=== PATIENT | male | born 1935 | race Caucasian/White ===

== ENCOUNTER 2017-01-23 22:32 | Inpatient (IN) | payer MEDICARE, OTHER ==
[~2017-01-23] VITALS: Ht 180.3 cm; Wt 130.0 kg
[~2017-01-23 22:32] MED LIST: ALLOPURINOL300 MG PO; CHLORTHALIDONE25 MG PO; CIPRODEX OTIC7.5 ML AD; CORTISPORIN EAR10 ML AD; COZAAR50 MG PO; DILTIAZEM ER120 MG PO; HYDROCHLOROTHIA25 MG PO; MAGNESIUM100 MG PO; MAGNESIUM250 MG PO; MECLIZINE HCL25 MG PO; METOPROLOL TART25 MG PO; MULTIVITAMINS1 EAC7 PO; VITAMIN D31000 UNI1 PO; ZINC CHELATED50 MG PO; ZINC LOZENGE25 MG PO
--- NOTE | 2017-01-24 01:58 | NUR ---
PT ARRIVES TO CCU ROOM 127, TRANSFERRED TO BED WITH PURPLE MAT AND THREE PERSON ASSIST. PT IS WEAK AND LETHARGIC BUT ALERT AND ORIENTED. ADMITTED WITH SEVERE SEPSIS. CURRENTLY ON 2L/O2, QUIÑONEZ WITH TEMP PROBE IN PLACE AND HR IN THE 80'S. 50 ML URINE EMPTIED FROM QUIÑONEZ BAG, WILL BEGIN HOURLY URINE MONITORING NOW. PT IS HAVING FREQUENT NONPRODUCTIVE COUGHING. ADMISSION COMPLETED, THIRD BOLUS INFUSING AT THIS TIME AND AZITHROMAX INFUSION COMPLETED.
--- NOTE | 2017-01-24 02:43 | NUR ---
LOW BP'S NOTED, VERIFIED WITH MANUAL BP ON LEFT ARM. HR REMAINS STEADY IN THE 80'S. WILL CALL DR OLIVA.
--- NOTE | 2017-01-24 03:12 | NUR ---
DR OLIVA CALLED IN TO UNIT, GIVEN UPDATE, NO ORDERS AT THIS TIME.
--- NOTE | 2017-01-24 03:12 | NUR ---
BP'S HAVE COME UP AND URINE OUTPUT 100ML FOR THE LAST HOUR. FOURTH BOLUS STARTING TO INFUSE. HR 70'S.
--- NOTE | 2017-01-24 06:54 | NUR ---
CALLED DR OLIVA TO UPDATE REGARDING PT'S INCREASE IN PVC'S/BIGEMINY. ORDER GIVEN TO GIVE MAGNESIUM RIDER AND PO KCL. WILL CONTINUE TO MONITOR.
--- NOTE | 2017-01-24 08:36 | NUR ---
PT VERY CONCERED ABOUT WANTING TO KNOW IF PEOPLE THAT ARE DYING SEE THINGS OR HAVE VISIONS? EXPLAINED THAT ALL PEOPLE ARE DIFFERENT. PT ASSUMED THAT I AM RELIGOUS DUE TO WEARING CROSS EARING TODAY. EXPLAINED THAT I WOULD HAVE SPERICAL CARE STAFF COME AND TALK WITH HIM.
--- NOTE | 2017-01-24 09:07 | NUR ---
SPUTUM SAMPLE SENT TO LAB AT THIS TIME.
--- NOTE | 2017-01-24 09:09 | NUR ---
PT REFUSING TO EAT BKF DUE TO HE DOES NOT WANT TO HAVE TO GET OUT OF BED TO USE THE BATHROOM. " I AM JUST TO WEAK" "I WAS TOLD BY ONE OF THE NURSES THAT IF I DID NOT COME IN WHEN I DID I WOULD HAVE ". EXPLAINED THAT HIS ASSESSMENT AND VITAL SIGNS SAY DIFFERENT.
--- NOTE | 2017-01-24 10:15 | NUR ---
PT CONTIOUES TO TALK ABOUT AND TALKING ABOUT THE ROSERY,SAYING PRAYERS, BUT REFUSES A ROSERY WHEN ASKED IF HE WANTS ONE. QUIÑONEZ CATHETER DRAINING MERLYN IN COLOR URINE, AND MEETS THE TOBY REQUIRMENT.
--- NOTE | 2017-01-24 10:41 | NUR ---
PT UP TO THE WHEELCHAIR TO BE TRANSPORTED TO FOR A TWO VIEW. NATURAL GAS TREATING UNIT OPERATOR WENT WITH PT AT THIS TIME.
--- NOTE | 2017-01-24 10:50 | NUR ---
PT RETURNED FROM XRAY VIA WHEEL CHAIR, CONTIOUES TO REFUSE TO EAT WHEN OFFERED FOOD. "I DON'T WANT TO HAVE A BM" "I AM TOO WEEK TO WALK INTO THE BATHROOM" EXPLAINED THAT WE HAVE A COMMODE TO BRING TO THE BEDSIDE, BUT PT STILL DOES NOT WANT SOLID FOODS. WE COMPERMISED ON A CLEAR LIQUID TRAY WHICH WAS ORDERED.
--- NOTE | 2017-01-24 11:39 | NUR ---
PT C/O PAIN AT THIS TIME MEDICATED WITH 1MG DILAUDID IVP AT THIS TIME. THEN PT TRANSFERED VIA BED TO ROOM 119. UPDATED RN FROM M/S ALSO AT THIS TIME.
--- NOTE | 2017-01-24 12:12 | NUR ---
PT TEMP HAS INCREASED THEREFORE BLOOD CULTURES ORDERED AT THIS TIME, PER DR RUEDA ORDERS. LAB NOTIFIED ALSO AT THIS TIME.
--- NOTE | 2017-01-24 12:20 | NUR ---
pt temp increased and shannan carrerow per Dr Michael orders. Temp remains elevated at this time 13:22 tylenol 500mg po given at this tie to see if will decrease temp. 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
[2017-01-24] MEDS ORDERED: ALLOPURINOL300 MG PO (14:19)
[2017-01-24] MEDS ORDERED: LOSARTAN POTAS100 MG PO (14:20)
--- NOTE | 2017-01-24 14:23 | NUR ---
PHYSICAL THERAPY INTO SEE PT AND DID SOME WORK WITH HIM. CURRENTLY DR OLIVA INTO SEE PT AT THIS TIME. I & O'S COMPLETED AND PT CONTIOUES TO NOT WANT TO EAT FOOD.
[2017-01-24] MEDS ORDERED: BICALUTAMIDE50 MG PO (14:27)
[2017-01-24] MEDS ORDERED: TRIAMCINOLONE A15 G1 TOP (14:31)
--- NOTE | 2017-01-24 14:36 | NUR ---
MED REC COMPLETE
--- NOTE | 2017-01-24 15:04 | NUR ---
PT UP TO THE CHAIR AT THIS TIME, AFTER THE QUIÑONEZ CATHETER REMOVED. PT MOVES WELL. PT CONTIOUES TO IN AND OUT OF [facility] DR OLIVA IS AWARE.
--- NOTE | 2017-01-24 15:15 | NUR ---
MANAGEMENT LECTURER INTO TALK WITH PT AT THIS TIME.
--- NOTE | 2017-01-24 15:55 | NUR ---
PT REMAINS UP IN THE CHAIR AND CURRENTLY TALKING WITH HIS SISTER, PT TAKING PO WELL (WATER ONLY). PT CONTIOUES TO DENIE NEED TO SOLID FOODS.
--- NOTE | 2017-01-24 16:29 | NUR ---
PT DID ORDER SOME DINNER AT THIS TIME.
--- NOTE | 2017-01-24 17:11 | NUR ---
PT REMAINS UP INTHE CHAIR FOR DINNER, SANDWICH AND JUICE. PT IS ABLE TO SET UP HIS SANDWICH HE FEELS FIT.
--- NOTE | 2017-01-24 17:57 | NUR ---
PT REMAINS UP IN THE CHAIR AT THIS TIME, ATE ALL OF HIS DINNER. ASKED IF HE WOULD LIKE TO GO BACK TO BED "NO"
--- NOTE | 2017-01-24 19:35 | NUR ---
PT UP IN CHAIR, DOZING BUT AWAKENS EASILY, DENIES NEEDS THEN BACK TO SLEEP.
--- NOTE | 2017-01-24 20:20 | NUR ---
PT IN CHAIR, ASSESSMENT DONE. HAVING OCCASIONAL COUGHING. DENIES PAIN, ALERT AND ORIENTED.
--- NOTE | 2017-01-24 20:30 | NUR ---
PT UP TO VOID IN BR, THEN BACK TO BED. VISITORS IN TO SEE PT.
--- NOTE | 2017-01-24 21:45 | NUR ---
PT GIVEN LUNCH BOX AND ICE CREAM FOR A SNACK, ATE MOST OF IT.
--- NOTE | 2017-01-24 23:00 | NUR ---
PT AWAKE IN BED, UNABLE TO SLEEP DUE TO FREQUENT COUGHING.
--- NOTE | 2017-01-24 23:47 | NUR ---
UP TO VOID IN THE BR, STEADY ON FEET, HR REMAINSIN THE 60'S WHEN UP. BACK TO BED, TESSALON PERLES GIVEN FOR COUGHING. ASSESSMENT DONE, UNCHANGED FROM PREVIOUS.
--- NOTE | 2017-01-25 01:50 | NUR ---
PT SLEEPING, COUGHING OCCASIONALLY.
--- NOTE | 2017-01-25 05:09 | NUR ---
PT UP TO BR TO VOID, BACK TO BED.
--- NOTE | 2017-01-25 06:17 | NUR ---
PT UP TO VOID THEN BACK TO BED
--- NOTE | 2017-01-25 08:08 | NUR ---
PT UP TO THE CHAIR AT THIS TIME, BATH COMPLETED AND LINE CHANGED. PT TOOK OFFENCE THAT HE WAS OFFERED AND WAS GIVEN WARM WIPES TO CLEAN UP WITH.
--- NOTE | 2017-01-25 08:16 | NUR ---
PT CONTIOUES TO TALK WITH STAFF ABOUT "WHY DID HIS PENIS SHRINK UP?" THIS STAFF DID NOT SAY A WORD TO PT AT THIS TIME. THEN PT "SAID WELL IT HAPPENED TO MY FATHER SO I GUESS THAT IS WHY IT HAPPEN TO ME".
--- NOTE | 2017-01-25 08:21 | NUR ---
PT AMBULATED TO THE BATHROOM PT REFUSED TO USE WALKER "I DONT NEED THAT" PT WAS ABLE TO AMBULATE WELL WITHOUT THE WALKER AT THIS TIME. THEN PT STATES "I AM NOT SURE IF I NEED TO 1 OR 2 SO I AM GOING TO SIT DOWN."
--- NOTE | 2017-01-25 09:33 | NUR ---
PT REMAIN UP IN THE CHAIR AT THIS TIME AND APPEARS TO BE SLEEPING, CALL LIGHT IN PTS LAP AT THIS TIME.
--- NOTE | 2017-01-25 10:02 | NUR ---
DR OLIVA INTO SEE PT THIS AM, NEW ORDERS AND PT WILL BE TRANSFERED TO THE M/S UNIT AT SOME POINT TODAY.
--- NOTE | 2017-01-25 10:17 | NUR ---
PASTOR YESENIA GALLEGOS SEE PT AT THIS TIME. PT REMAINS UP IN THE CHAIR.
--- NOTE | 2017-01-25 12:06 | NUR ---
PT REMAINS UP IN THE CHAIR, LUNCH HERE AT THIS TIME, PT FEEDING SELF. NO C/O'S AT THIS TIME OTHER THEN HE STATES "I WAS REAL SICK A FEW DAYS AGO" EXPLAINED THAT HE VITAL SIGNS ARE WNL'S AND HE DOES NOT HAVE A FEVER.
--- NOTE | 2017-01-25 13:20 | NUR ---
PT ATE LUNCH WELL, FAMILY INTO VISIT THIS AFTERNOON. AND CURRENTLY PT IS UP WORKING WITH PHYSICAL THERAPY AT THIS TIME. PHYSICAL THERAPIST TOOK PT TO THE M/S UNIT TO WORK IN THE PT ROOM.
--- NOTE | 2017-01-25 13:30 | NUR ---
PT SITTING IN CHAIR, MOTIONED ME INTO HIS RM. FRIENDLY, ALERT AND ORIENTED. 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 HE KNOWS HE NEEDS TO RETIRE, AND HOPES HIS COUSIN WILL TAKE FARM ON. PT SHARED HIS RM JOURNEY WITH ME, AND SEEMS ALSO TO BE STRUGGLING WITH HIS HEALTH. PT READS GUIDEPOSTS, PROVIDED HIM WITH ONE, AND HAD PRAYER WITH PT. HE ALSO REQUESTED I CONTACT HIS CLAMMER AIDAN I DID. WILL CONTINUE TO FOLLOW
--- NOTE | 2017-01-25 16:30 | NUR ---
DISCHARGE: TALKED WITH PT ABOUT WHY IS FAMILY IS SO CONCERNED WITH HIM GOING HOME. ASKED IF HE FELT HE COULD NOT RETURN HOME PT STATES "NO, I CAN GO HOME" ASKED IF HE FELT HE NEED SOME HELP LIKE WITH HOUSE KEEPER AND OR SOMEONE TO COME IN AND PREPARE MEALS. 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 IF YOU WOULD TAKE THE BOOKS AND THE COOKBOOKS OUT I WOULD ONLY HAVE A TV AND COUCH" FARMING: TALKED WITH PT ON HOW HE DOES WITH FARMING? "WELL I ONLY RECEIVED 49 [employer] AND [employer] THIS YEAR." I STATED WELL WHAT HAPPENED? HE SAID THAT "IT WAS A VERY DRY YEAR" ASKE HIM IF HE HAS THOUGHT OF RETIRMENT DUE TO HIS AGE? "WELL YES,BUT MY FAMILY WANT 2/3 TO 1/3 TO FARM MY GROUND." WELL IF THEY CAN FARM AND GET BETTER THAN 49 AND MORE LIKE OVER 100 YOU WOULD MAKE MORE MONEY AND HAVE MORE TIME TO ENJOY WHAT MAKES YOU HAPPY. "I WILL HAVE TO THINK ABOUT THAT"
--- NOTE | 2017-01-25 16:49 | NUR ---
DINNER ORDERED FOR PT AT THIS TIME. PT FREIND INTO SEE PT AT THIS TIME. IT APPEARS THEY ENJOY EACH OTHERS COMPANY.
--- NOTE | 2017-01-25 18:28 | NUR ---
PT REMAINS UP IN THE CHAIR AT THIS TIME, DENIES ANY C/O'S AT THIS TIME. PT WILL BE TRANSFERED TO M/S AFTER REPORT TONIGHT.
--- NOTE | 2017-01-25 18:50 | NUR ---
PT REMAINS UP IN THE CHAIR AT THIS TIME. NO C/O'S AT THIS TIME
--- NOTE | 2017-01-25 19:59 | NUR ---
REPORT GIVEN TO ARLENE KRAUS. PT TRANSFERRED TO MED SURG, AMBULATED OVER WITH CHARGE NURSE.
--- NOTE | 2017-01-25 20:45 | NUR ---
RECIEVED REPORT FROM CCU. PT RESTING IN CHAIR. DENIES NEEDS AT THIS TIME. CALL SADIA IN REACH.
--- NOTE | 2017-01-25 22:18 | NUR ---
PT SITTING UP IN CHAIR. DENIES NEEDS. CALL MCCULLOUGH IN REACH.
--- NOTE | 2017-01-26 00:13 | NUR ---
PT SLEEPING SITTING UP IN CHAIR. CALL MCCULLOUGH IN REACH.
--- NOTE | 2017-01-26 01:46 | NUR ---
PT UP IN CHAIR. DRY COUGH NOTED. PT APPEARS TO BE SLEEPING. CALL MCCULLOUGH IN REACH.
--- NOTE | 2017-01-26 02:00 | NUR ---
PT RESTING IN CHAIR. URINAL EMPTIED. WATER PITCHER FILLED. BENZONATAE OFFERED, PT DECLINED. PT DENIES FURTHER NEEDS. CALL MCCULLOUGH IN REACH.
--- NOTE | 2017-01-26 02:39 | NUR ---
PT SLEEPING. IVF UNFUSING. CALL MCCULLOUGH IN REACH.
--- NOTE | 2017-01-26 03:46 | NUR ---
PT RESTING IN BED WATCHING TV. URINAL EMPTIED. DENIES NEEDS. CALL MCCULLOUGH IN REACH.
--- NOTE | 2017-01-26 05:38 | NUR ---
REPOSITIONED PT ON R SIDE. INCONT OF STOOL. SMALL LIQUID BROWN. PT STILL SLEEPING HOWEVER EASILY AROUSED. IVF INFUSING W/O DIFFICULTY.
--- NOTE | 2017-01-26 05:53 | NUR ---
PT SLEPT OFF AND ON LAST NIGHT. WAS UP MOST OF THE NIGHT IN THE CHAIR. PT HAS DRY COUGH THAT HE STATES PRODUCES CLEAR SPUTUM. PT HAS BEEN INDEPENDENT IN ROOM. STATES HE IS FEELING WORRIED THIS MORNING. REASSURED PT THAT HE HAS MADE GOOD PROGRESS SINCE HE ARRIVED IN THE ED. VS STABLE. 2 SALINE LOCKS IN L ARM, FLUSH WELL. LEVAQUIN FOR 5 MORE DAYS.
--- NOTE | 2017-01-26 07:33 | NUR ---
RECEVIED BEDSIDE REPORT FROM NAYANA JACOBS. PT AWAKE AND ALERT. WILL HAVE LIVER ULTRASOUND TODAY D/T ELEVATED LIVER ENZYMES.
--- NOTE | 2017-01-26 08:08 | NUR ---
SPOKE WITH GRACE, SPEECH PATHOLOGY SUPERVISOR RE: LIVER ULTRASOUND. PT NEEDS TO BE NPO FOR 8 HOURS. ORDER CHANGED TO NPO FOR ULTRASOUND, TECH WILL BE IN ABOUT [phone] FOR ULTRASOUND.
--- NOTE | 2017-01-26 08:13 | NUR ---
PT HAD NOT HAD BREAKFAST YET. ADVISED PT NOT TO EAT BREAKFAST. SIGN PLACED TO BE NPO. ORDER CHANGED. COMPUTER TECHNICAL SPECIALIST CALLED AND HE WILL BE IN THIS MORNING FOR THE ULTRASOUND.
--- NOTE | 2017-01-26 08:42 | NUR ---
PATIENT IS SITTING UP ON SIDE OF BED. WHITEBOARD UPDATED. DID NOT NEED ANYTHING CURRENTLY.
--- NOTE | 2017-01-26 10:19 | NUR ---
PT HAD ULTRASOUND OF LIVER. BREAKFAST IS ORDERED. PT STATES THAT HE FEELS "LIKE HE DID BEFORE ALL THIS HAPPENED." PT IS CONCERNED ABOUT RECOURANCE OF ILLNESS D/T FARMING. PT IS INDEPENDENT IN ROOM.
--- NOTE | 2017-01-26 18:13 | NUR ---
PT TOLERATING ROOM AIR. PT INDEPENDENT IN HIS ROOM AND HALLWAYS. PT REPORTS NO PAIN, NO NAUSEA. PT TOLERATING REG DIET WELL. VOIDING WELL. IV X2 IN LEFT ARM.
--- NOTE | 2017-01-26 19:35 | NUR ---
RECIEVED REPORT FROM DAY SHIFT NURSE. PT RESTING IN BED. AT BEDSIDE. STATES PAIN AT A TOLERABLE LEVEL. 2L/MIN O2 VIA NC-CONT PULSE OX IN PLACE. PT DENIES NEEDS. CALL MCCULLOUGH IN REACH.
--- NOTE | 2017-01-26 21:46 | NUR ---
PT RESTING IN BED. DRY COUGH NOTED. LUNG SOUNDS CLEAR. PT DENIES NEED FOR TESSALON PERLES. STATES HE STILL IS COUGHING UP CLEAR SPUTUM, BUT MOSTLY WHEN HE IS FLAT ON HIS BACK. PT DENIES NEEDS AT THIS TIME. INDEPENDENT IN ROOM.
--- NOTE | 2017-01-26 22:40 | NUR ---
PT SLEEPING. CALL MCCULLOUGH IN REACH.
--- NOTE | 2017-01-27 00:24 | NUR ---
PT RESTING IN BED. DENIES NEEDS AT THIS TIME. CALL MCCULLOUGH IN REACH.
--- NOTE | 2017-01-27 02:15 | NUR ---
PT SLEEPING IN BED. URINAL EMPTIED. CALL MCCULLOUGH IN REACH.
--- NOTE | 2017-01-27 04:32 | NUR ---
PT SLEEPING. CALL MCCULLOUGH IN REACH.
--- NOTE | 2017-01-27 04:54 | NUR ---
PT RESTING AT A DANGLE IN BED. URINAL EMPTIED. I HAVE NOT HEARD PT COUGH FOR QUITE AWHILE. STATES HE IS COUGHING A LITTLE BIT. PT DENIES NEEDS, CALL MCCULLOUGH IN REACH.
--- NOTE | 2017-01-27 05:04 | NUR ---
PT CALLED TO SAY HIS IV WAS LEAKING. LT HAND WAS LEAKING. DC'D HE HAS ANOTHER WORKING IV
--- NOTE | 2017-01-27 05:46 | NUR ---
PT HAD A GOOD NIGHT. SLEPT MOST OF THE NIGHT. INDEPENDENT IN ROOM. COUGHING LESS. STATES HE IS STILL ABLE TO BRING UP CLEAR SPUTUM. 4 MORE DAYS LEVAQUIN. LIKELY D/C HOME TODAY.
--- NOTE | 2017-01-27 06:48 | NUR ---
LAB IN WITH PT-LAB STATES THEY ARE UNABLE TO DRAW OFF PT. LAB STAFF IS FINDING JESSICA TO ATTEMPT.
--- NOTE | 2017-01-27 07:27 | NUR ---
RECIEVED BEDSIDE REPORT FROM NAYANA JACOBS. PT IS AWAKE AND ALERT IN HIS ROOM. LAB IN ROOM DRAWING BLOOD FOR LABS. NO COMPLAINTS AT THIS TIME.
[2017-01-27] MEDS ORDERED: LEVOFLOXACIN500 MG PO (10:14)
--- NOTE | 2017-01-27 10:54 | NUR ---
PT DISCHARGE EDUCATION COMPLETE. PT STATED THAT HIS SISTER WILL TAKE HIM HOME, BUT WON'T BE HERE UNTIL THIS AFTERNOON. PT HAS NO CLOTHES HERE. SHE WILL BRING HIM CLOTHES. SHE IS IN [place], HE WILL ATTEMPT TO CONTACT HER AND SEE IF SHE CAN COME EARLY.
== END 2017-01-27 12:35 | disposition home or self-care (01) | DRG 871 ==
LOC: ED 22:32 → CCU 01-24 01:00 → MS 01-25 20:14
PROVIDERS: ADMIT Internal Medicine
DX: A41.9 Sepsis, unspecified organism (principal); J18.9 Pneumonia, unspecified organism; N17.9 Acute kidney failure, unspecified; R65.20 Severe sepsis without septic shock; I10 Essential (primary) hypertension; J01.90 Acute sinusitis, unspecified; B96.89 Other specified bacterial agents as the cause of diseases classified elsewhere; D69.6 Thrombocytopenia, unspecified; E86.0 Dehydration; Z85.46 Personal history of malignant neoplasm of prostate
CPT/HCPCS: 36415; 71010; 71020; 76705; 80048; 80053; 81001; 83605; 83735; 85025; 85610; 85730; 87040; 87070; 87205; 87449; 87502; 87899; 94668; 97110; 97116; 97161; 97530; J0456; J0696; J1650; J1956; J3475; J7030; J7120

== ENCOUNTER 2017-08-19 16:24 | Observation (INO) | payer MEDICARE, OTHER ==
[~2017-08-19] VITALS: Ht 180.3 cm; Wt 124.3 kg
[~2017-08-19 16:24] MED LIST changes: +BICALUTAMIDE50 MG PO; +LEVOFLOXACIN500 MG PO; +LOSARTAN POTAS100 MG PO; -MULTIVITAMINS1 EAC7 PO; +MULTIVITAMINS1 EAC8 PO; +TRIAMCINOLONE A15 G1 TOP
--- OUTSIDE RECORDS SUMMARY | 2017-08-19 16:58 | XMS | Clinical Summary ---
Demographics + + + | Address | [address] | | | [place] [address] | + + + | Home Phone | | + + + | Preferred Language | Unknown | + + + | Marital Status | Single | + + + | Taoist Affiliation | UNK | + + + | Race | White | + + + | Ethnic Group | Not or | + + + Author + + + | Author | [facility] | + + + | Organization | [facility] | + + + | Address | Unknown | + + + | Phone | Unavailable | + + + Support + + +---------+ + | Name | Relationship | Address | Phone | + + +---------+ + | BETTYE MONTAÑO | ECON | Unknown | | + + +---------+ + Care Team Providers + +------+ + | Care Marzipan Maker Name | Role | Phone | + +------+ + PP | Unavailable | + +------+ + Source Comments KEKE is fully live on both [facility] Ambulatory and [facility] InPatient.[facility] Allergies Not on File Current Medications Not on file Active Problems Not on file Social History + +-------+ +--------+------+ | Tobacco Use | Types | Packs/Day | Years | Date | | | | | Used | | + +-------+ +--------+------+ | Never Assessed | | | | | + +-------+ +--------+------+ + + + | Sex Assigned at | Date Recorded | | | | + + + | Not on file | | + + + Plan of Treatment + + + + + | Health Maintenance | Due Date | Last Done | Comments | + + + + + | INFLUENZA VACCINE | | | | | (FLU SHOT) | 8 | | | + + + + + Results Not on filefrom Last 3 Months"
--- OUTSIDE RECORDS SUMMARY | 2017-08-19 16:59 | XMS | Clinical Summary ---
Demographics + + + | Address | [address] | | | [place] [address] | + + + | Home Phone | | + + + | Preferred Language | Unknown | + + + | Marital Status | | + + + | Restoration Affiliation | Unknown | + + + | Race | Unknown | + + + | Ethnic Group | Unknown | + + + Author + + + | Author | [facility] | | | and [place] | + + + | Organization | [facility] | | | and [place] | + + + | Address | Unknown | + + + | Phone | Unavailable | + + + Support + + +---------+ + | Name | Relationship | Address | Phone | + + +---------+ + | Kosmos,Lisa | ECON | Unknown | | + + +---------+ + Care Team Providers + +------+ + | Care Associate Product Manager Name | Role | Phone | + +------+ + | Dnany Langley | PP | | | MD | | | + +------+ + Allergies + + + + + + | Active Allergy | Reactions | Severity | Noted | Comments | | | | | Date | | + + + + + + | Amlodipine | | | 09/15/19 | | | | | | 17 | | + + + + + + | Doxazosin | | | 09/15/19 | | | | | | 17 | | + + + + + + | Doxycycline | | | 09/15/19 | | | | | | 17 | | + + + + + + | Terazosin | | | 09/15/19 | | | | | | 17 | | + + + + + + Current Medications + + +-------+---------+------+------+-------+ | Prescription | Sig. | Disp. | Refills | Star | End | Statu | | | | | | t | Date | s | | | | | | Date | | | + + +-------+---------+------+------+-------+ | allopurinol | Take 300 mg by mouth | | | | | Activ | | (ZYLOPRIM) 300 mg | Daily. | | | | | e | | tablet | | | | | | | + + +-------+---------+------+------+-------+ | bicalutamide | Take 50 mg by mouth | | | | | Activ | | (CASODEX) 50 mg | Daily. | | | | | e | | tablet | | | | | | | + + +-------+---------+------+------+-------+ | chlorthalidone 25 | Take 25 mg by mouth | | | | | Activ | | mg tablet | Daily. | | | | | e | + + +-------+---------+------+------+-------+ | Cod Liver Oil CAPS | Take 1 capsule by | | | | | Activ | | | mouth Daily. | | | | | e | + + +-------+---------+------+------+-------+ | losartan (COZAAR) | Take 100 mg by mouth | | | | | Activ | | 100 MG tablet | 2 times daily. Take | | | | | e | | | 0.5 tablet twice | | | | | | | | daily | | | | | | + + +-------+---------+------+------+-------+ | Multiple | Take 1 tablet by | | | | | Activ | | Vitamins-Minerals | mouth Daily. | | | | | e | | (MULTIVITAMIN ADULT | | | | | | | | PO) | | | | | | | + + +-------+---------+------+------+-------+ | dilTIAZem | Take 120 mg by mouth | | | | | Activ | | (CARDIZEM SR) 120 mg | Daily. | | | | | e | | 12 hr capsule | | | | | | | + + +-------+---------+------+------+-------+ | magnesium, as | Take 250 mg by mouth | | | | | Activ | | oxide, 250 MG tablet | Daily. 0.5 tablet | | | | | e | | | daily | | | | | | + + +-------+---------+------+------+-------+ | metoprolol | Take 25 mg by mouth | | | | | Activ | | tartrate (LOPRESSOR) | 2 times daily. 0.5 | | | | | e | | 25 mg tablet | tablet twice daily | | | | | | + + +-------+---------+------+------+-------+ | ascorbic acid | Take 500 mg by mouth | | | | | Activ | | (VITAMIN C) 500 mg | Daily. | | | | | e | | tablet | | | | | | | + + +-------+---------+------+------+-------+ | Cholecalciferol | Take 1,000 Units by | | | | | Activ | | (VITAMIN D3) 3000 | mouth Daily. | | | | | e | | units TABS | | | | | | | + + +-------+---------+------+------+-------+ | Zinc 25 MG TABS | Take 1 tablet by | | | | | Activ | | | mouth Daily. | | | | | e | + + +-------+---------+------+------+-------+ Active Problems Not on file Social History [...] | + + + + + | Vaccine: | | | | | Dtap/Tdap/Td (1 - | 5 | | | | Tdap) | | | | + + + + + | Vaccine: Zoster (#1) | | | | | | 6 | | | + + + + + | Vaccine: | | | | | Pneumococcal 65+ | 1 | | | | Low/Medium Risk (1 | | | | | of 2 - PCV13) | | | | + + + + + | Vaccine: Influenza | | | | | (Season Ended) | 8 | | | + + + + + Results Not on filefrom Last 3 Months Insurance + +--------+ +--------+ +---------+ | Payer | Benefi | Subscriber | Type | Phone | Address | | | t Plan | ID | | | | | | / | | | | | | | Group | | | | | + +--------+ +--------+ +---------+ | MEDICARE | MEDICA | xxxxxxxxxx | Medica | +1- | | | | RE | | re | [phone] | | | | PART A | | | | | | | AND B | | | | | + +--------+ +--------+ +---------+ | STATE FARM MEDICAL | STATE | xxxxxxxxxxx | Indemn | [id number] | | | | FARM | x | ity | [phone] | | | | MDCR | | | | | | | SUPPL | | | | | + +--------+ +--------+ +---------+ + +--------+ +--------+ + + | Guarantor Name | Accoun | Relation to | Date | Phone | Billing Address | | | t Type | Patient | of | | | | | | | | | | + +--------+ +--------+ + + | VAMSI ROBBINS | Person | Self [birth year] Home: | [address] | | | al/Fam | | 1936 | [phone] | [address] | | | tracey | | | [phone] | [place] [address] | + +--------+ +--------+ + +"
--- OUTSIDE RECORDS SUMMARY | 2017-08-19 16:59 | XMS | Clinical Summary ---
Demographics + + + | Address | [address] | | | [place] [address] | + + + | Home Phone | | + + + | Preferred Language | Unknown | + + + | Marital Status | | + + + | Gnosticism Affiliation | Unknown | + + + | Race | Unknown | + + + | Ethnic Group | Unknown | + + + Author + + + | Author | [facility] | | | and [place] | + + + | Organization | [facility] | | | and [...] Team Providers + +------+ + | Care Relationship Management Lead Name | Role | Phone | + +------+ + | Danny Langley | PP | | | MD [...] | STATE | xxxxxxxxxxx | Indemn | [phone] | | | | FARM | x [...] | Self [birth year] Home: | [address] | | | al/Fam | | 1936 | [phone] | [address] | | | [address] | | | [phone] | [place] [address] | + +--------+ +--------+ + +"
--- OUTSIDE RECORDS SUMMARY | 2017-08-19 16:59 | XMS | Clinical Summary ---
Demographics + + + | Address | [address] | | | [place] [address] | + + + | Home Phone | | + + + | Preferred Language | Unknown | + + + | Marital Status | Single | + + + | Synagogue Affiliation | UNK | + + + | Race | White | + + + | Ethnic Group | Not or | + + + Author + + + | Author | [facility] | + + + | Organization | [facility] | + + + | Address | Unknown | + + + | Phone | Unavailable | + + + Support + + +---------+ + | Name | Relationship | Address | Phone | + + +---------+ + | BETTYE MONTAÑO | ECON | Unknown | | + + +---------+ + Care Team Providers + +------+ + | Care Director Of Career Services Name | Role | Phone | + +------+ + PP | Unavailable | + +------+ + Source Comments KEKE is fully live on both [facility] Ambulatory and [facility] InPatient.[facility] Allergies Not on File Current Medications [...]
--- OUTSIDE RECORDS SUMMARY | 2017-08-19 16:59 | XMS | Clinical Summary ---
Demographics + + + | Address | [address] | | | [place] [address] | + + + | Home Phone | | + + + | Preferred Language | Unknown | + + + | Marital Status | Single | + + + | Congregation Affiliation | Unknown | + + + | Race | Unknown | + + + | Ethnic Group | Unknown | + + + Author + + + | Author | [facility] | + + + | Organization | [facility] | + + + | Address | Unknown | + + + | Phone | Unavailable | + + + Support + + +---------+ + | Name | Relationship | Address | Phone | + + +---------+ + | Message,Detailed | ECON | Unknown | | + + +---------+ + | Lisa Rush | ECON | Unknown | | + + +---------+ + Care Team Providers + +------+ + | Care Senior Payroll Specialist Name | Role | Phone | + +------+ + | Danny Langley MD | PP | | + +------+ + Allergies + + + + + + | Active Allergy | Reactions | Severity | Noted | Comments | | | | | Date | | + + + + + + | Amlodipine | Other (See Comments) | Medium | 07/08/19 | Leg swell | | | | | 13 | | + + + + + + | Carvedilol | Nausea Only | Low | 07/08/19 | | | | | | 13 | | + + + + + + | Doxazosin | Other (See Comments) | Medium | 07/08/19 | Leg swell | | | | | 13 | | + + + + + + | Doxycycline | Anaphylaxis | High | 07/08/19 | | | | | | 13 | | + + + + + + | Metoprolol | Other (See Comments) | Medium | 07/08/19 | 100 mg leg and | | | | | 13 | ankle pain. | + + + + + + Current Medications + + +--------+---------+------+------+-------+ | Prescription | Sig. | Disp. | Refills | Star | End | Statu | | | | | | t | Date | s | | | | | | Date | | | + + +--------+---------+------+------+-------+ | allopurinol | Take 300 mg by mouth | | | | | Activ | | (ZYLOPRIM) 300 MG | daily. | | | | | e | | tablet | | | | | | | + + +--------+---------+------+------+-------+ | Zinc 25 MG TABS | Take 25 mg by mouth. | | | | | Activ | | | | | | | | e | + + +--------+---------+------+------+-------+ | Multiple Vitamin | Take 1 tablet by | | | | | Activ | | (MULTIVITAMIN) | mouth daily. | | | | | e | | tablet | | | | | | | + + +--------+---------+------+------+-------+ | Ascorbic Acid | Take 500 mg by mouth | | | | | Activ | | (VITAMIN C) 100 MG | 2 (two) times | | | | | e | | tablet | daily. | | | | | | + + +--------+---------+------+------+-------+ | metoprolol | Take 1 tablet by | | | 05/0 | | Activ | | (TOPROL-XL) 25 MG 24 | mouth daily. | | | 9/20 | | e | | hr tablet | | | | 14 | | | + + +--------+---------+------+------+-------+ | diltiazem | Take 60 mg by mouth | | | | | Activ | | (CARDIZEM) 60 MG | daily. | | | | | e | | tablet | | | | | | | + + +--------+---------+------+------+-------+ | Magnesium 250 MG | Take 250 mg by mouth | | | | | Activ | | TABS tablet | daily. | | | | | e | + + +--------+---------+------+------+-------+ | losartan (COZAAR) | Take 1 tablet by | 270 | 3 | 06/2 | | Activ | | 50 MG tablet | mouth 2 (two) times | tablet | | 4/20 | | e | | | daily. | | | 15 | | | + + +--------+---------+------+------+-------+ | COD LIVER OIL PO | Take 1 tablet by | | | | | Activ | | | mouth daily. | | | | | e | + + +--------+---------+------+------+-------+ | chlorthalidone | Take 25 mg by mouth | | | | | Activ | | (HYGROTEN) 25 MG | daily. | | | | | e | | tablet | | | | | | | + + +--------+---------+------+------+-------+ | meclizine | Take 12.5 mg by | | | | | Activ | | (ANTIVERT) 12.5 MG | mouth 2 (two) times | | | | | e | | tablet | daily. | | | | | | + + +--------+---------+------+------+-------+ | cholecalciferol | Take 1,000 Units by | | | | | Activ | | (VITAMIN D-3) 1000 | mouth daily. | | | | | e | | UNITS tablet | | | | | | | + + +--------+---------+------+------+-------+ | vitamin E 400 UNIT | Take 400 Units by | | | | | Activ | | capsule | mouth daily. | | | | | e | + + +--------+---------+------+------+-------+ | bicalutamide | Take 50 mg by mouth. | | | | | Activ | | (CASODEX) 50 MG | | | | | | e | | tablet | | | | | | | + + +--------+---------+------+------+-------+ | potassium | Take 595 mg by mouth | | | | | Activ | | gluconate 595 (99 K) | daily with | | | | | e | | MG tablet | breakfast. | | | | | | + + +--------+---------+------+------+-------+ Active Problems + + + | Problem | Noted Date | + + + | Secondary hyperparathyroidism (HCC) | 09/08/2012 | + + + | CKD (chronic kidney disease) stage 3, GFR 30-59 ml/min | 07/07/2012 | + + + | Essential hypertension, benign | 07/07/2012 | + + + | Nephrolithiasis | 07/07/2012 | + + + | Obesity | 07/07/2012 | + + + | Gout | 07/07/2012 | + + + | Vitamin D deficiency | 07/07/2012 | + + + Family History + + +------+ + | Medical History | Relation | Name | Comments | + + +------+ + | Diabetes type II | Mother | | | + + +------+ + + + + + + | Relation | Name | Status | Comments | + + + + + | Father | glomular | | | | | tumor | | | + + + + + | Mother | | | | + + + + + Social History + +-------+ +--------+------+ | Tobacco Use | Types | Packs/Day | Years | Date | | | | | Used | | + +-------+ +--------+------+ | Never Smoker | | | | | + +-------+ +--------+------+ + +---+---+---+ | Smokeless Tobacco: | | | | | Never Used | | | | + +---+---+---+ + + +---------+ + | Alcohol Use | Drinks/We | oz/Week | Comments | | | ek | | | + + +---------+ + | No | | | | + + +---------+ + + + + | Sex Assigned at | Date Recorded | | | | + + + | Not on file | | + + + Last Filed Vital Signs + + + + | Vital Sign | Reading | Time Taken | + + + + | Blood Pressure | 157/74 | 01/04/2017 11:01 AM PDT | + + + + | Pulse | 60 | 01/04/2017 11:01 AM PDT | + + + + | Temperature | 35.6 C (96 F) | 01/04/2017 11:01 AM PDT | + + + + | Respiratory Rate | 14 | 09/11/2013 10:25 AM PDT | + + + + | Oxygen Saturation | 95% | 01/04/2017 11:01 AM PDT | + + + + | Inhaled Oxygen | - | - | | Concentration | | | + + + + | Weight | 132.9 kg (293 lb) | 01/04/2017 11:01 AM PDT | + + + + | Height | 180.3 cm (5' 11") | 01/04/2017 11:01 AM PDT | + + + + | Body Mass Index | 40.87 | 01/04/2017 11:01 AM PDT | + + + + Plan of Treatment + [...] filefrom Last 3 Months Insurance + +--------+ +------+-------+ + | Payer | Benefi | Subscriber | Type | Phone | Address | | | t Plan | ID | | | | | | / | | | | | | | Group | | | | | + +--------+ +------+-------+ + | MEDICARE | MEDICA | xxxxxxxxxx | | | [address] | | | RE | | | | [place] [phone] | | | IP-OP | | | | | + +--------+ +------+-------+ + | COMMERCIAL OTHER | STATE | xxxxxxxxxxx | | | | | | FARM | x | | | | | | MEDICA | | | | | | | L | | | | | | | INSURA | | | | | | | NCE | | | | | + +--------+ +------+-------+ + + +--------+ +--------+ + + | Guarantor Name | Accoun | Relation to | Date | Phone | Billing Address | | | t Type | Patient | of | | | | | | | | | | + +--------+ +--------+ + + | VAMSI ROBBINS | Person | Self | [birth year] Home: | [address] | | | al/Fam | | 1936 | [phone] | [place], | | | [address] | | | [phone] | [place] [phone] | + +--------+ +--------+ + +
--- OUTSIDE RECORDS SUMMARY | 2017-08-19 16:59 | XMS | Clinical Summary ---
Demographics + + + | Address | [address] | | | [place] [address] | + + + | Home Phone | | + + + | Preferred Language | Unknown | + + + | Marital Status | Single | + + + | Restorationist Affiliation | Unknown | + + + | Race | Unknown | + + + | Ethnic Group | Unknown | + + + Author + + + | Author | [facility] | + + + | Organization | [facility] | + + + | Address [...] Team Providers + +------+ + | Care Dry Transfer Man Name | Role | Phone | + [...] | xxxxxxxxxx | | | [address] | | | RE | | | | [place] [address] | | | IP-OP | | | [...] | Self | [birth year] | Home: | [address] | | | al/Fam | | 1936 | [phone] | [place], | | | [place] | | | [phone] | [place] [address] | + +--------+ +--------+ + +
--- OUTSIDE RECORDS SUMMARY | 2017-08-19 20:31 | XMS | Clinical Summary ---
Demographics + + + | Address | [address] | | | [place] [address] | + + + | Home Phone | | + + + | Preferred Language | Unknown | + + + | Marital Status | Single | + + + | Alevism Affiliation | UNK | + + + | Race | White | + + + | Ethnic Group | Not or | + + + Author + + + | Author | [facility] | + + + | Organization | [facility] | + + + | Address | Unknown | + + + | Phone | Unavailable | + + + Support + + +---------+ + | Name | Relationship | Address | Phone | + + +---------+ + | BETTYE MONTAÑO | ECON | Unknown | | + + +---------+ + Care Team Providers + +------+ + | Care Biodiesel Process Control Technician Name | Role | Phone | + +------+ + PP | Unavailable | + +------+ + Source Comments KEKE is fully live on both [facility] and [facility] InPatient.[facility] Allergies Not on File Current Medications [...]
--- OUTSIDE RECORDS SUMMARY | 2017-08-19 20:31 | XMS | Clinical Summary ---
Demographics + + + | Address | [address] | | | [place] [address] | + + + | Home Phone | | + + + | Preferred Language | Unknown | + + + | Marital Status | | + + + | Jainism Affiliation | Unknown | + + + | Race | Unknown | + + + | Ethnic Group | Unknown | + + + Author + + + | Author | [facility] | | | and [place] | + + + | Organization | [facility] | | | [...] Team Providers + +------+ + | Care Oil Sales And Service Rep Name | Role | Phone | + [...] | STATE | [phone] | Indemn | [phone] | | | | FARM | x [...] | Self | [birth year] | Home: | [address] | | | al/Fam | | 1936 | [phone] | [address] | | | tracey | | | [phone] | [place] [address] | + +--------+ +--------+ + +"
--- OUTSIDE RECORDS SUMMARY | 2017-08-19 20:31 | XMS | Clinical Summary ---
Demographics + + + | Address | [address] | | | [place] [address] | + + + | Home Phone | | + + + | Preferred Language | Unknown | + + + | Marital Status | Single | + + + | Church Affiliation | Unknown | + + + | Race | Unknown | + + + | Ethnic Group | Unknown | + + + Author + + + | Author | [facility] | + + + | Organization | [facility] | + + + | Address [...] Team Providers + +------+ + | Care Radar Mechanic Name | Role | Phone | + [...] | [phone] | | | [address] | | | RE | | | | [place] [address] | | | IP-OP | | | [...] | Self | [birth year] | Home: | [address] | | | al/Fam | | 1936 | [phone] | [place], | | | [address] | | | [phone] | [place] [address] | + +--------+ +--------+ + +
--- NOTE | 2017-08-19 22:47 | NUR ---
PATIENT RESTING IN BED, DENIES NEEDS. CALL LIGHT WITHIN REACH.
--- NOTE | 2017-08-20 00:17 | NUR ---
PATIENT RESTING IN BED, BREATHING IS EVEN AND UNLABORED. DENIES NEEDS. CALL LIGHT WITHIN REACH.
--- NOTE | 2017-08-20 02:00 | NUR ---
PATIENT RESTING IN BED, BREATHING IS EVEN AND UNLABORED, HEART RATE IS 45 ON TELE, CALL LIGHT WITHIN REACH.
--- NOTE | 2017-08-20 05:10 | NUR ---
UPDATED DR. OLIVA REGARDING PATIENT'S BP OF 196/80. NO NEW ORDERS AT THIS TIME.
--- NOTE | 2017-08-20 06:40 | NUR ---
UPATED DR. OLIVA REGARDING PATIENT'S LOW URINE OUTPUT, ORDERED X1 1L NS BOLUS.
--- NOTE | 2017-08-20 07:47 | NUR ---
BEDSIDE REPORT RECEIVED FROM ANGIE KRAUS. WHITE BOARD UPDATED. PATIENT AWAKE. ANGIE CALLED AND LEFT MESSAGE FOR DR OLIVA ABOUT MOST RECENT BLOOD PRESSURE. PLAN FOR MRI AND ECHO TODAY. BOLUS INFUSING INTO RFA IV NOW. TELE [address] SHOWS HR 74.
--- NOTE | 2017-08-20 08:10 | NUR ---
PATIENT SITTING UP IN BED RN IN ROOM INSERTING IV. NO OTHER NEEDS AT THIS TIME.
--- NOTE | 2017-08-20 09:23 | NUR ---
PT OFF FLOOR TO MRI NOW WITH STUDENT NURSE AND APPLICATION DEFENSE MANAGER.
--- NOTE | 2017-08-20 12:21 | NUR ---
PATIENT RESTING IN BED. NO NEEDS AT THIS TIME.
--- NOTE | 2017-08-20 13:20 | NUR ---
PATIENT SITTING ON EDGE OF HIS BED. PATIENT WASHED HIS HANDS AND FACE. HAIR COMBED. PT IN ROOM TO WORK WITH PATIENT AT THIS TIME. FRESH ICE WATER GIVEN.
--- NOTE | 2017-08-20 14:05 | NUR ---
PT BP ELEVATED. DR OLIVA TOOK MANUAL BP AND RESULT 190/90. HOSPITALIST TO CHANGE MEDS. LUNGS CLEAR. OTHER VSS. I&Os DOCUMENTED. PATIENT SITTING AT EDGE OF BED.
[2017-08-20] MEDS ORDERED: IMIQUIMOD1 EACH TOP (14:31)
[2017-08-20] MEDS ORDERED: POTASSIUM99 M1 PO (16:10)
[2017-08-20] MEDS ORDERED: COD LIVER OIL1 EAC1 PO (16:12)
[2017-08-20] MEDS ORDERED: VITAMIN E400 UNI5 PO (16:12)
[2017-08-20] MEDS ORDERED: TURMERIC500 M2 PO (16:13)
--- NOTE | 2017-08-20 16:38 | NUR ---
PATIENT STANDING UP IN BATHROOM. THIS MANUFACTURING MILLWRIGHT ASSISTED PATIENT BACK TO BED. PATIENT UNDERSTANDS TO CALL FOR HELP WHEN HE NEEDS TO GET UP. CALL LIGHT IN REACH. PATIENT RESTING. NO OTHER NEEDS AT THIS TIME.
--- NOTE | 2017-08-20 17:02 | NUR ---
MED REC COMPLETE
--- NOTE | 2017-08-20 17:14 | EKG ---
[facility] [address] [place] [address] Signed Normal sinus rhythm Normal ECG No previous ECGs available Confirmed by FREDDY OLIVA MD ([id number]) on 08/20/2017 5:13:52 PM Electronically Signed By: FREDDY OLIVA MD 08/20/17 1714 PATIENT NAME: VAMSI ROBBINS LISA Electrocardiogram DATE OF : 35 PHYSICIAN: FREDDY OLIVA MD REPORT #: [id number] REPORT IS CONFIDENTIAL AND NOT TO BE RELEASED WITHOUT AUTHORIZATION
--- NOTE | 2017-08-20 17:24 | NUR ---
UNEVENTFUL DAY. INCREASED BP AT 1400 VS. MANUAL BP 190/90. BED/CHAIR ALARM. PATIENT C/O DIZZINESS WHEN AMBULATING. MEDS CHANGED TODAY. HYDRALAZINE, COZAAR, AND SPIRONOLACTONE FOR NOW. SALINE LOCKED. NEW IV LW. PT/OT. CARDIAC DIET.
--- NOTE | 2017-08-20 17:33 | NUR ---
PATIENT RESTING IN BED. CALL LIGHT IN REACH. VITALS TAKEN. FRESH ICE WATER AT BEDSIDE TABLE. NO OTHER NEEDS AT THIS TIME.
--- NOTE | 2017-08-20 18:57 | NUR ---
IN ROOM FOR REPORT, PT IS IN RESTROOM AT THIS TIME AND WILL PULL CALL STRING WHEN DONE.
--- NOTE | 2017-08-20 20:55 | NUR ---
IN ROOM TO ASSESS PT AND GIVE EVENING MEDICATIONS. PT DENIES PAIN AND ANY NEEDS AT THIS TIME. BP WAS TAKEN MANUALLY, IV'S FLUSH WELL. CALL LIGHT IS WITHIN REACH.
--- NOTE | 2017-08-20 23:45 | NUR ---
PT IS RESTING WITH EYES CLOSED, RESPIRATIONS ARE EVEN AND NONLABORED. CALL LIGHT IS WITHIN REACH.
--- NOTE | 2017-08-21 01:53 | NUR ---
HELPED PT TO RESTROOM, PT IS BACK IN BED WITH CALL LIGHT IN REACH. FRESH WATER IS AT BEDSIDE.
--- NOTE | 2017-08-21 04:03 | NUR ---
PT IS RESTING WITH EYES CLOSED, RESPIRATIONS ARE EVEN AND NONLABORED. CALL LIGHT IS WITHIN REACH.
--- NOTE | 2017-08-21 07:22 | NUR ---
BEDSIDE REPORT RECEIVED FROM MURIEL KRAUS. WHITE BOARD UPDATED. PATIENT AWAKE LYING IN BED. BP STILL ELEVATED. STUDENT NURSE, HANNY, TO ADMINISTER MEDICATIONS WITH THIS RN. SALINE LOCKED IN BOTH IVs.
--- NOTE | 2017-08-21 08:24 | NUR ---
PT SITTING AT EDGE OF BED. ADMINISTERED MEDICATIONS WITH STUDENT NURSE. BP 184/94 WITH MANUAL CUFF/SPHYGMOMANOMETER. PATIENT TALKATIVE WITH STAFF. WILL SHOWER WHEN AID AVAILABLE TO HELP.
--- NOTE | 2017-08-21 09:37 | NUR ---
PATIENT UP TO SHOWER WITH ONE PERSON ASSIST. STUDENT NURSE IN BATHROOM TO ASSIST. SHAVE DONE BY THIS LOG BRANDER. PATIENT UP TO SINK AND BRUSHED TEETH. PATIENT BACK TO CHAIR WITH CHAIR ALARM ON. CALL BUTTON IN REACH. WARM BLANKET GIVEN. CALL BUTTON IN REACH. NO OTHER NEEDS AT THIS TIME.
--- NOTE | 2017-08-21 11:35 | NUR ---
PT SITTING IN RECLINER EATING LUNCH. VISITOR AT BEDSIDE.
--- NOTE | 2017-08-21 13:20 | NUR ---
PT SITTING IN CHAIR, VISITING WITH HIS SISTER RUBEN. HE EXPRESSED HIS DISCOUR- AGEMENT WITH NOT IMPROVING LIKE HE FELT HE SHOULD. LET HIM VENT, AND BEGAN TO DEBRIEF. I ASKED IF HIS SOIL ANALYST KNEW HE WAS HERE, AND HE SAID HE WOULDN'T HAVE THE TIME OR REALLY CARE. HE GAVE ME PERMISSION TO CONTACT [facility]. SOIL ANALYST IS OUT OF TOWN, BUT STAFF WILL MAKE SURE SOMEONE COMES BY. HAD PRAYER WITH PT, WILL FOLLOW NEEDED
[2017-08-21] MEDS ORDERED: HYDRALAZINE HCL25 MG PO (13:26)
[2017-08-21] MEDS ORDERED: COZAAR50 MG PO (13:26)
[2017-08-21] MEDS ORDERED: SPIRONOLACTONE25 MG PO (13:27)
[2017-08-21] MEDS ORDERED: FLONASE ALLERG9.9 ML NAS (13:36)
--- NOTE | 2017-08-21 14:20 | NUR ---
THIS ORACLE FUSION DEVELOPER ASSISTED PATIENT TO THE RESTROOM. 1 PERSON SBA. PATIENT IS NOW RESTING IN CHAIR. PATIENT STATES HE IS WAITING FOR HIS SISTER FOR WHEN HE DISCHARGED. THIS ORACLE FUSION DEVELOPER DC'D PATIENTS IV ON LEFT AND RIGHT RADIAL. CALL LIGHT WITHIN REACH. NO OTHER NEEDS AT THIS TIME.
== END 2017-08-21 15:05 | disposition home or self-care (01) ==
LOC: ED 16:24 → MS 16:26
PROVIDERS: ADMIT Internal Medicine
DX: I16.0 Hypertensive urgency (principal); J32.9 Chronic sinusitis, unspecified; R27.0 Ataxia, unspecified; M10.9 Gout, unspecified; C61 Malignant neoplasm of prostate; R00.1 Bradycardia, unspecified; I10 Essential (primary) hypertension; Z79.899 Other long term (current) drug therapy; Z88.1 Allergy status to other antibiotic agents; Z88.8 Allergy status to other drugs, medicaments and biological substances
CPT/HCPCS: 36415; 70450; 70551; 71045; 80048; 80053; 81001; 82607; 85025; 85610; 85730; 93005; 93010; 93306; 96360; 96361; 96372; 97110; 97161; 97165; 99285; G0378; G8978; G8979; G8980; G8987; G8989; J1650; J7030

== ENCOUNTER 2017-09-18 19:45 | Emergency (ER) | payer MEDICARE, OTHER ==
[~2017-09-18] VITALS: Ht 180.3 cm; Wt 129.3 kg
[~2017-09-18 19:45] MED LIST changes: +COD LIVER OIL1 EAC1 PO; +FLONASE ALLERG9.9 ML NAS; +HYDRALAZINE HCL25 MG PO; +IMIQUIMOD1 EACH TOP; +POTASSIUM99 M1 PO; +SPIRONOLACTONE25 MG PO; +TURMERIC500 M2 PO; +VITAMIN E400 UNI5 PO
[2017-09-18] MEDS ORDERED: LOSARTAN POTASS50 MG PO (20:14)
--- NOTE | 2017-09-19 13:56 | EKG ---
[facility] [address] [place] [address] Signed Normal sinus rhythm Nonspecific T wave abnormality Abnormal ECG When compared with ECG of 19-AUG-2017 17:13, No significant change was found Confirmed by FREDDY OLIVA MD ([id number]) on 09/19/2017 1:56:38 PM Electronically Signed By: FREDDY OLIVA MD 09/19/17 1356 PATIENT NAME: VAMSI ROBBINS Electrocardiogram DATE OF : 35 PHYSICIAN: FREDDY OLIVA MD REPORT #: [id number] REPORT IS CONFIDENTIAL AND NOT TO BE RELEASED WITHOUT AUTHORIZATION
== END 2017-09-18 22:22 | disposition home or self-care (01) ==
LOC: ED 19:45
DX: R42 Dizziness and giddiness (principal); I10 Essential (primary) hypertension; Z88.1 Allergy status to other antibiotic agents; Z88.8 Allergy status to other drugs, medicaments and biological substances; Z79.899 Other long term (current) drug therapy
CPT/HCPCS: 80053; 81001; 84484; 85025; 93005; 93010; 99284

== ENCOUNTER 2018-03-10 08:21 | Emergency (ER) | payer MEDICARE, OTHER ==
[~2018-03-10] VITALS: Ht 180.3 cm; Wt 129.3 kg
--- OUTSIDE RECORDS SUMMARY | ~2018-03-10 | XMS | Clinical Summary ---
Demographics + + + | Address | [address] | | | [place] [address] | + + + | Home Phone | | + + + | Preferred Language | Unknown | + + + | Marital Status | Single | + + + | Hinduism Affiliation | UNK | + + + | Race | White | + + + | Ethnic Group | Not or | + + + Author + + + | Author | [facility] | + + + | Organization | [facility] | + + + | Address | Unknown | + + + | Phone | Unavailable | + + + Support + + +---------+ + | Name | Relationship | Address | Phone | + + +---------+ + | BETTYE MONTAÑO | ECON | Unknown | | + + +---------+ + Care Team Providers + +------+ + | Care Oil Inspector Name | Role | Phone | + +------+ + PP | Unavailable | + +------+ + Source Comments KEKE is fully live on both [facility] Amb[facility] and [facility] InPatient.[facility] Allergies Not on File Current Medications [...] | + + + + + | Pneumococcal (Adult) | | | | | (1 of 2 - PCV13) | 1 | | | + + + + + | Influenza (Flu) | | | | | vaccination (#1) | 8 | | | + + + + + Results Not on filefrom Last 3 Months"
--- OUTSIDE RECORDS SUMMARY | ~2018-03-10 | XMS | Encounter Summary ---
Demographics + + + | Address | [address] | | | [place] [address] | + + + | Home Phone | | + + + | Preferred Language | Unknown | + + + | Marital Status | Single | + + + | Scientologist Affiliation | Unknown | + + + | Race | Unknown | + + + | Ethnic Group | Unknown | + + + Author + + + | Author | [facility] | + + + | Organization | [facility] | + + + | Address [...] Team Providers + +------+ + | Care Air Sampler Name | Role | Phone | + +------+ + | Danny Lanlgey MD | PCP | | + +------+ + Encounter Details +--------+ + + + + | Date | Type | Department | Care Team | Description | +--------+ + + + + | 12/18/ | Orders Only | [facility] | [place], | CKD (chronic kidney | | 2018 | | [address] | JOHN Davis | disease) stage 3, | | | | [address] | | GFR 30-59 ml/min | | | | [place] [address] | | | | | | [phone] | | | +--------+ + + + + Social [...] | PROTEIN / CREATININE | Routin | 12/17/2017 | CKD (chronic | Results for this | | RATIO, URINE | e | 12:00 AM | kidney disease) | procedure are in the | | | | PDT | stage 3, GFR 30-59 | results section. | | | | | ml/min | | + +--------+ + + + | CBC W/MANUAL DIFF | Routin | 12/17/2017 | CKD (chronic | Results for this | | | e | 12:00 AM | kidney disease) | procedure are in the | | | | PDT | stage 3, GFR 30-59 | results section. | | | | | ml/min | | + +--------+ + + + | URIC ACID | Routin | 12/17/2017 | CKD (chronic | Results for this | | | e | 12:00 AM | kidney disease) | procedure are in the | | | | PDT | stage 3, GFR 30-59 | results section. | | | | | ml/min | | + +--------+ + + + | PTH INTACT NO | Routin | 12/17/2017 | CKD (chronic | Results for this | | CALCIUM | e | 12:00 AM | kidney disease) | procedure are in the | | | | PDT | stage 3, GFR 30-59 | results section. | | | | | ml/min | | + +--------+ + + + | MAGNESIUM | Routin | 12/17/2017 | CKD (chronic | Results for this | | | e | 12:00 AM | kidney disease) | procedure are in the | | | | PDT | stage 3, GFR 30-59 | results section. | | | | | ml/min | | + +--------+ + + + | RENAL FUNCTION PANEL | Routin | 12/17/2017 | CKD (chronic | Results for this | | | e | 12:00 AM | kidney disease) | procedure are in the | | | | PDT | stage 3, GFR 30-59 | results section. | | | | | ml/min | | + +--------+ + + + in this encounter Results Protein / creatinine ratio, urine (12/17/2017) + + + + + | Component | Value | Ref Range | Performed At | + + + + + | UR | 206.3 (A) | 0 - 150 | [facility] | | PROTEIN/CREATININE | | | LABORATORY | + + + + + + + | Specimen | + + | Urine | + + + + + | Narrative | Performed At | + + + | PROTEIN, URINE - 13 - 0.0 - 50.0 CREATININE, URINE - 63 | [facility] | | | LABORATORY | + + + + + + + + | Performing | Address | City/State/Zipcode | Phone Number | | Organization | | | | + + + + + | [facility] | [address] | [place] [address] | | | LABORATORY | 13 | | | + + + + + Uric acid (12/17/2017) + +-------+ + + | Component | Value | Ref Range | Performed At | + +-------+ + + | URIC ACID | 5.0 | 4.4 - 7.6 | [facility] | | | | | LABORATORY | + +-------+ + + + + | Specimen | + + | Blood | + + + + + + + | Performing | Address | City/State/Zipcode | Phone Number | | Organization | | | | + + + + + | [facility] | [address] | [place] [address] | | | LABORATORY | 13 | | | + + + + + PTH intact no calcium (12/17/2017) + + + + + | Component | Value | Ref Range | Performed At | + + + + + | PTH INTACT NO | 72.59 (A) | 15 - 65 pg/mL | [facility] | | CALCIUM | | | LABORATORY | + + + + + + + | Specimen | + + | Blood | + + + + + + + | Performing | Address | City/State/Zipcode | Phone Number | | Organization | | | | + + + + + | [facility] | [address] | [place] [address] | | | LABORATORY | 13 | | | + + + + + CBC w/manual diff (12/17/2017) + + + + + | Component | Value | Ref Range | Performed At | + + + + + | WBC | 5.2 | 4.5 - 11.0 10^3/mL | [facility] | | | | | LABORATORY | + + + + + | RBC | 3.40 (A) | 4.3 - 5.7 10^6/ L | [facility] | | | | | LABORATORY | + + + + + | HGB | 11.4 (A) | 13.5 - 18.0 g/dL | [facility] | | | | | LABORATORY | + + + + + | HCT | 31.9 (A) | 41 - 50 % | [facility] | | | | | LABORATORY | + + + + + | MCV | 93.7 | 81 - 99 fL | [facility] | | | | | LABORATORY | + + + + + | MCH | 34 (A) | 27 - 33 pg | [facility] | | | | | LABORATORY | + + + + + | MCHC | 36 | 30 - 36 g/dL | [facility] | | | | | LABORATORY | + + + + + | RDW SD | 13.5 | 10.5 - 15.0 % | [facility] | | | | | LABORATORY | + + + + + | PLT | 127 (A) | 140 - 440 K/ L | [facility] | | | | | LABORATORY | + + + + + | MPV | | fL | [facility] | | | | | LABORATORY | + + + + + | NEUTROPHILS | 58.2 | 39 - 80 % | [facility] | | | | | LABORATORY | + + + + + | LYMPHOCYTES | 33.8 | 24 - 44 % | [facility] | | | | | LABORATORY | + + + + + | MONOCYTES | 4.9 | 0 - 12 % | [facility] | | | | | LABORATORY | + + + + + | EOSINOPHILS | 2.1 | 0 - 6 % | [facility] | | | | | LABORATORY | + + + + + | BASOPHILS | 1.0 | 0 - 2 % | [facility] | | | | | LABORATORY | + + + + + | Neutrophils Absolute | | / L | [facility] | | | | | LABORATORY | + + + + + | Lymphocytes Absolute | | / L | [facility] | | | | | LABORATORY | + + + + + | Monocytes Absolute | | / L | [facility] | | | | | LABORATORY | + + + + + | Eosinophils Absolute | | / L | [facility] | | | | | LABORATORY | + + + + + | Basophils Absolute | | / L | [facility] | | | | | LABORATORY | + + + + + + + | Specimen | + + | Blood | + + + + + + + | Performing | Address | City/State/Zipcode | Phone Number | | Organization | | | | + + + + + | [facility] | [address] | [place] [address] | | | LABORATORY | 13 | | | + + + + + Magnesium (12/17/2017) + +-------+ + + | Component | Value | Ref Range | Performed At | + +-------+ + + | MAGNESIUM | 2.0 | 1.7 - 2.5 mg/dL | [facility] | | | | | LABORATORY | + +-------+ + + + + | Specimen | + + | Blood | + + + + + + + | Performing | Address | City/State/Zipcode | Phone Number | | Organization | | | | + + + + + | [facility] | [address] | [place] [address] | | | LABORATORY | 13 | | | + + + + + Renal function panel (12/17/2017) + + + + + | Component | Value | Ref Range | Performed At | + + + + + | GLUCOSE | 118 (A) | 70 - 100 mg/dL | [facility] | | | | | LABORATORY | + + + + + | BUN | 29 (A) | 6 - 23 mg/dL | [facility] | | | | | LABORATORY | + + + + + | CREATININE | 1.14 (A) | 0.70 - 1.11 mg/dL | [facility] | | | | | LABORATORY | + + + + + | PHOSPHORUS | | mg/dL | [facility] | | | | | LABORATORY | + + + + + | Albumin | 4.3 | 3.5 - 5.0 | [facility] | | | | | LABORATORY | + + + + + | SODIUM | 139 | 132 - 143 mmol/L | [facility] | | | | | LABORATORY | + + + + + | POTASSIUM | 4.2 | 3.6 - 5.1 mmol/L | [facility] | | | | | LABORATORY | + + + + + | CHLORIDE | 103 | 95 - 112 mmol/L | [facility] | | | | | LABORATORY | + + + + + | CO2 | 22 | 19 - 31 mmol/L | [facility] | | | | | LABORATORY | + + + + + | ANION GAP AGAP | 18.2 | 7 - 21 mmol/L | [facility] | | | | | LABORATORY | + + + + + | GFR MDRD Non Af Amer | | | [facility] | | | | | LABORATORY | + + + + + | Phosphorus,Inorganic | 2.8 | 2.5 - 5.0 | [facility] | | | | | LABORATORY | + + + + + | BUN/CREAT | 25.4 | 6.0 - 28.6 | [facility] | | | | | LABORATORY | + + + + + | CALCIUM | 9.7 | 8.5 - 10.3 mg/dL | [facility] | | | | | LABORATORY | + + + + + | EGFR | 61 | mg/dL | [facility] | | | | | LABORATORY | + + + + + + + | Specimen | + + | Blood | + + + + + + + | Performing | Address | City/State/Zipcode | Phone Number | | Organization | | | | + + + + + | [facility] | [address] | [place] [address] | | | LABORATORY | 13 | | | + + + + + in this encounter Visit Diagnoses + + | Diagnosis | + + | CKD (chronic kidney disease) stage 3, GFR 30-59 ml/min | + +"
--- OUTSIDE RECORDS SUMMARY | ~2018-03-10 | XMS | Clinical Summary ---
Demographics + + + | Address | [address] | | | [place] [address] | + + + | Home Phone | | + + + | Preferred Language | Unknown | + + + | Marital Status | Single | + + + | Sikhism Affiliation | UNK | + + + | Race | White | + + + | Ethnic Group | Not or | + + + Author + + + | Author | [facility] | + + + | Organization | [facility] | + + + | Address | Unknown | + + + | Phone | Unavailable | + + + Support + + +---------+ + | Name | Relationship | Address | Phone | + + +---------+ + | BETTYE MONTAÑO | ECON | Unknown | | + + +---------+ + Care Team Providers + +------+ + | Care Behavioral Instructor Name | Role | Phone | + +------+ + PP | Unavailable | + +------+ + Source Comments KEKE is fully live on both [facility] Ambulatory and [facility] InPatient.[facility] Allergies Not on File Current Medications Not [...]
--- OUTSIDE RECORDS SUMMARY | ~2018-03-10 | XMS | Encounter Summary ---
Demographics + + + | Address | [address] | | | [place] [address] | + + + | Home Phone | | + + + | Preferred Language | Unknown | + + + | Marital Status | Single | + + + | Advent Affiliation | Unknown | + + + | Race | Unknown | + + + | Ethnic Group | Unknown | + + + Author + + + | Author | [facility] | + + + | Organization | [facility] | + + + | Address [...] Team Providers + +------+ + | Care City Council Member Name | Role | Phone | + +------+ + | Danny Langley MD | PCP | | + +------+ + Reason for Visit + + + | Reason | Comments | + + + | Labs Pravin | Hakeem - 12/17/17 - sara | + + + Encounter Details +--------+ + + + + | Date | Type | Department | Care Team | Description | +--------+ + + + + | 12/18/ | Documentati | [facility] | [place], | Labs Only ([facility] | | 2018 | on Only | [address] | JOHN Davis | - 12/17/17 - | | | | [address] | | heidi | | | | [place] [address] | | | | | | [phone] | | | +--------+ + + + [...] Treatment Not on fileas of this encounter Visit Diagnoses Not on filein this encounter"
--- OUTSIDE RECORDS SUMMARY | ~2018-03-10 | XMS | Clinical Summary ---
Demographics + + + | Address | [address] | | | [place] [address] | + + + | Home Phone | | + + + | Preferred Language | Unknown | + + + | Marital Status | Single | + + + | Voodoo Affiliation | Unknown | + + + | Race | Unknown | + + + | Ethnic Group | Unknown | + + + Author + + + | Author | [employer] | + + + | Organization | [facility] | + + + | Address [...] Team Providers + +------+ + | Care Wide Piece Goods Inspector Name | Role | Phone | [...] deficiency | 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 | + + + Encounters +--------+ + + + + | Date | Type | Specialty | Care Team | Description | +--------+ + + + + | 12/23/ | Office | | Jefry [place], | CKD (chronic kidney | | 2018 | Visit | | ARTIST MODEL | disease) stage 3, | | | | | | GFR 30-59 ml/min | | | | | | (Primary Dx); | | | | | | Proteinuria, | | | | | | unspecified type; | | | | | | Essential | | | | | | hypertension, benign | +--------+ + + + + | 12/18/ | Documentati | | [place], | Labs Only ([facility] | | 2018 | on Only | | JOHN Davis | - 12/17/17 - | | | | | | sara) | +--------+ + + + + | 12/18/ | Orders Only | | [place], | CKD (chronic kidney | | 2017 | | | JOHN Davis | disease) stage 3, | | | | | | GFR 30-59 ml/min | +--------+ + + + + | 12/10/ | Telephone | | Montse Neumann MA | Labs Only | | 2017 | | | | | +--------+ + + + + from [...] + + + | Blood Pressure | 152/60 | 12/23/2017 1:20 PM PDT | + + + + | Pulse | 81 | 12/23/2017 1:20 PM PDT | + + + + | Temperature | 35.6 C (96 F) | 01/04/2017 11:01 AM PDT | + + + + | Respiratory Rate | 14 | 09/11/2013 10:25 AM PDT | + + + + | Oxygen Saturation | 97% | 12/23/2017 1:20 PM PDT | + + + + | Inhaled Oxygen | - | - | | Concentration | | | + + + + | Weight | 128.5 kg (283 lb 6.4 | 12/23/2017 1:20 PM PDT | | | oz) | | + + + + | Height | 180.3 cm (5' 11") | 12/23/2017 1:20 PM PDT | + + + + | Body Mass Index | 39.53 | 12/23/2017 1:20 PM PDT | + + + + Plan [...] Months Results Protein / creatinine ratio, urine (12/17/2017) [...] | [address] | [place] [address] | | | LABORATORY | 13 | [...] | [address] | [place] [address] | | | LABORATORY | 13 | [...] | [address] | [place] [address] | | | LABORATORY | 13 | [...] | [address] | [place] [address] | | | LABORATORY | 13 | [...] | [address] | [place] [address] | | | LABORATORY | 13 | [...] + + + | [facility] | [address] | [place] [address] | | | LABORATORY | 13 | [...] +------+-------+ + | MEDICARE | MEDICA | [id number] | | | [address] | | | RE | | | | [place] [address] | | | IP-OP | | | | | + +--------+ +------+-------+ + | COMMERCIAL OTHER | STATE | [id number] | | | | | | FARM [...] | Self | [birth year] | Home: | [address] | | | al/Fam | | 1936 | [phone] | [place], | | | [address] | | | [address] | [place] [address] | + +--------+ +--------+ + +
--- OUTSIDE RECORDS SUMMARY | ~2018-03-10 | XMS | Encounter Summary ---
Demographics + + + | Address | [address] | | | [place] [address] | + + + | Home Phone | | + + + | Preferred Language | Unknown | + + + | Marital Status | Single | + + + | Mandaeism Affiliation | Unknown | + + + | Race | Unknown | + + + | Ethnic Group | Unknown | + + + Author + + + | Author | [employer] | + + + | Organization | [facility] | + + + | Address | Unknown | + + + | Phone | Unavailable | + + + Support + + +---------+ + | Name | Relationship | Address | Phone | + + +---------+ + | Message,Detailed | ECON | Unknown | | + + +---------+ + | Lisa uRsh | ECON | Unknown | | + + +---------+ + Care Team Providers + +------+ + | Care Bank Teller Name | Role | Phone | + [...] | | 2018 | on Only | [address] | JOHN Davis | - 12/17/17 - | | | | [address] | | heidi | | | | [place] [address] | | | | | | [phone] | | | +--------+ + + + [...]
--- OUTSIDE RECORDS SUMMARY | ~2018-03-10 | XMS | Encounter Summary ---
Demographics + + + | Address | [address] | | | [place] [address] | + + + | Home Phone | | + + + | Preferred Language | Unknown | + + + | Marital Status | Single | + + + | Yarsani Affiliation | Unknown | + + + | Race | Unknown | + + + | Ethnic Group | Unknown | + + + Author + + + | Author | [facility] | + + + | Organization | [facility] | + + + | Address [...] Team Providers + +------+ + | Care Product Development Assistant Name | Role | Phone | + [...] ml/min | | | | [place] [address] | [place] [address] | (Primary Dx); | | | | [phone] | [phone] | Proteinuria, | | | | | [...] such as Protonix (omeprazole), talk to your [facility] care provider about if you need this medication 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 Kellogg is a [...] Keep follow up appts with Urology in [place]. BP Charting: he will bring me back [...] questions or concerns. Truly yours, Jefry [place] [facility] Nephrology This note prepared with voice recognition [...]
--- OUTSIDE RECORDS SUMMARY | ~2018-03-10 | XMS | Encounter Summary ---
Demographics + + + | Address | [address] | | | [place] [address] | + + + | Home Phone | | + + + | Preferred Language | Unknown | + + + | Marital Status | Single | + + + | Latter Day Affiliation | Unknown | + + + | Race | Unknown | + + + | Ethnic Group | Unknown | + + + Author + + + | Author | [facility] | + + + | Organization | [facility] [employer] [facility] | + + + | Address [...] Team Providers + +------+ + | Care Dial Lathe Operator Name | Role | Phone | + [...] GFR 30-59 ml/min | | | | [place] [address] | | | | | | [phone] | | | +--------+ + + + [...] + + + | [facility] | [address] | [place] [address] | | | LABORATORY | 13 | [...] | [address] | [place] [address] | | | LABORATORY | 13 | [...] | [address] | [place] [address] | | | LABORATORY | 13 | [...] | [address] | [place] [address] | | | LABORATORY | 13 | [...] | [address] | [place] [address] | | | LABORATORY | 13 | [...] | [address] | [place] [address] | | | LABORATORY | 13 | | | + + + + + in this encounter Visit Diagnoses + + | Diagnosis | + + | CKD (chronic kidney disease) stage 3, GFR 30-59 ml/min | + +"
--- OUTSIDE RECORDS SUMMARY | ~2018-03-10 | XMS | Encounter Summary ---
Demographics + + + | Address | [address] | | | [place] [address] | + + + | Home Phone | | + + + | Preferred Language | Unknown | + + + | Marital Status | Single | + + + | Yazidi Affiliation | Unknown | + + + | Race | Unknown | + + + | Ethnic Group | Unknown | + + + Author + + + | Author | [employer] | + + + | Organization | [facility] | + + + | Address [...] Team Providers + +------+ + | Care Swim Instructor Name | Role | Phone | + +------+ + | Danny Langley MD | PCP | | + +------+ + Reason for Visit + + + | Reason | Comments | + + + | Labs Only | | + + + Encounter Details +--------+ + + + + | Date | Type | Department | Care Team | Description | +--------+ + + + + | 12/10/ | Telephone | [facility] | Montse Neumann MA | Labs Only | | 2018 | | [address] | | | | | | [address] | | | | | | [place] [address] | | | | | | [phone] | | | +--------+ + + + [...] Treatment Not on fileas of this encounter Results Protein / creatinine ratio, [...] | [address] | [place] [address] | | | LABORATORY | 13 | [...] | [facility] | [address] | [place] [address] | | | LABORATORY | 13 | [...] | [address] | [place] [address] | | | LABORATORY | 13 | [...] | [address] | [place] [address] | | | LABORATORY | 13 | [...] | [address] | [place] [address] | | | LABORATORY | 13 | [...] | [address] | [place] [address] | | | LABORATORY | 13 | | | + + + + + in this encounter Visit Diagnoses + + | Diagnosis | + + | CKD (chronic kidney disease) stage 3, GFR 30-59 ml/min - Primary | + +"
--- OUTSIDE RECORDS SUMMARY | ~2018-03-10 | XMS | Clinical Summary ---
Demographics + + + | Address | [address] | | | [place] [address] | + + + | Home Phone | | + + + | Preferred Language | Unknown | + + + | Marital Status | | + + + | Judaism Affiliation | Unknown | + + + [...] Team Providers + +------+ + | Care Spray Maker Name | Role | Phone | [...] +--------+ +---------+ | MEDICARE | MEDICA | [id number] | Medica | [phone]- | | | | RE | | re | [phone] | | | | PART A | | | | | | | AND B | | | | | + +--------+ +--------+ +---------+ | STATE FARM MEDICAL | STATE | [id number] | Indemn | [phone] | | | | FARM | 7 [...] | Self | [birth year] | Home: | [address] | | | al/Fam | | 1936 | [phone] | [address] | | | [address] | | | [phone] | [place] [address] | + +--------+ +--------+ + +
--- OUTSIDE RECORDS SUMMARY | ~2018-03-10 | XMS | Clinical Summary ---
Demographics + + + | Address | [address] | | | [place] [address] | + + + | Home Phone | | + + + | Preferred Language | Unknown | + + + | Marital Status | | + + + | Yazdanism Affiliation | Unknown | + + + | Race | Unknown | + + + | Ethnic Group | Unknown | + + + Author + + + | Author | [facility] | | | and [place] | + + + | Organization | [facility] | | | [...] Team Providers + +------+ + | Care Cash Processing Specialist Name | Role | Phone | [...] +--------+ +---------+ | MEDICARE | MEDICA | [id number] | Medica | [phone]- | | | | RE | | re | [phone] | | | | PART A | | | | | | | AND B | | | | | + +--------+ +--------+ +---------+ | STATE FARM MEDICAL | STATE | [id number] | Indemn | [phone] | | | | FARM | 7 [...] | Self | [birth year] | Home: | [address] | | | al/Fam | | 1936 | [phone] | [address] | | | [address] | | | [address] | [place] [address] | + +--------+ +--------+ + +
--- OUTSIDE RECORDS SUMMARY | ~2018-03-10 | XMS | Clinical Summary ---
Demographics + + + | Address | [address] | | | [place] [address] | + + + | Home Phone | | + + + | Preferred Language | Unknown | + + + | Marital Status | Single | + + + | Yarsanism Affiliation | Unknown | + + + | Race | Unknown | + + + | Ethnic Group | Unknown | + + + Author + + + | Author | [facility] | + + + | Organization | [facility] | + + + | Address [...] Team Providers + +------+ + | Care Geoscience Technician Name | Role | Phone | [...] | | 2018 | Visit | | C D AREA SUPERVISOR | disease) stage 3, | | | [...] | [address] | [place] [address] | | | LABORATORY | 13 | [...] | [address] | [place] [address] | | | LABORATORY | 13 | [...] | [address] | [place] [address] | | | LABORATORY | 13 | [...] | [address] | [place] [address] | | | LABORATORY | 13 | [...] | [address] | [place] [address] | | | LABORATORY | 13 | [...] + + + | [facility] | [address] | [place] [address] | | | LABORATORY | 13 | [...] +------+-------+ + | MEDICARE | MEDICA | [id number] | | | [address] | | | RE | | | | [place] [address] | | | IP-OP | | | | | + +--------+ +------+-------+ + | COMMERCIAL OTHER | STATE | [id number] | | | | | | FARM [...] | Self | [birth year] | Home: | [address] | | | al/Fam | | 1936 | [phone] | [place], | | | [address] | | | [address] | [place] [address] | + +--------+ +--------+ + +
--- OUTSIDE RECORDS SUMMARY | ~2018-03-10 | XMS | Encounter Summary ---
Demographics + + + | Address | [address] | | | [place] [address] | + + + | Home Phone | | + + + | Preferred Language | Unknown | + + + | Marital Status | Single | + + + | Baptist Affiliation | Unknown | + + + | Race | Unknown | + + + | Ethnic Group | Unknown | + + + Author + + + | Author | [employer] | + + + | Organization | [facility] | + + + | Address [...] Team Providers + +------+ + | Care Drapery Examiner Name | Role | Phone | + [...] ml/min | | | | [place] [address] | [place] [address] | (Primary Dx); | | | | [phone] | [phone] | Proteinuria, | | | | | [...] such as Protonix (omeprazole), talk to your [facility] care provider about if you need this medication division human 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 Kellogg is a [...] Keep follow up appts with Urology in [place]. BP Charting: he will bring me back [...] questions or concerns. Truly yours, Jefry [place] COLD SAW OPERATOR [facility] Nephrology This note prepared with voice [...]
--- OUTSIDE RECORDS SUMMARY | ~2018-03-10 | XMS | Encounter Summary ---
Demographics + + + | Address | [address] | | | [place] [address] | + + + | Home Phone | | + + + | Preferred Language | Unknown | + + + | Marital Status | Single | + + + | Gnosticist Affiliation | Unknown | + + + | Race | Unknown | + + + | Ethnic Group | Unknown | + + + Author + + + | Author | [facility] | + + + | Organization | [facility] [employer] | + + + | [...] Team Providers + +------+ + | Care Phlebotomy Lab Assistant Name | Role | Phone | [...] [address] | | | | | | [place] [address] | | | | | | [phone] | | | +--------+ + + + [...] | [address] | [place] [address] | | | LABORATORY | 13 | [...] [facility] | [address] | [place] [address] | | | LABORATORY | 13 | [...] | [facility] | [address] | [place] [address] | | | LABORATORY | 13 | [...] | [address] | [place] [address] | | | LABORATORY | 13 | [...] | [address] | [place] [address] | | | LABORATORY | 13 | [...] | [address] | [place] [address] | | | LABORATORY | 13 | | | + + + + + in this encounter Visit Diagnoses + + | Diagnosis | + + | CKD (chronic kidney disease) stage 3, GFR 30-59 ml/min - Primary | + +"
[~2018-03-10 08:21] MED LIST changes: +LOSARTAN POTASS50 MG PO
[2018-03-10] MEDS ORDERED: FLONASE ALLERG9.9 ML NAS (10:36)
[2018-03-10] MEDS ORDERED: ZITHROMAX250 MG PO (10:36)
--- NOTE | 2018-03-10 14:28 | EKG ---
[facility] [address] [facility] [place], [place] [address] Signed Sinus rhythm with 1st degree AV block Nonspecific T wave abnormality Abnormal ECG When compared with ECG of 18-SEP-2017 20:36, ME interval has increased Confirmed by SHAMEKA CARLOS DO ([id number]) on 03/10/2018 2:28:12 PM Electronically Signed By: SHAMEKA CARLOS DO 03/10/18 1428 PATIENT NAME: VAMSI ROBBINS Electrocardiogram DATE OF : 35 PHYSICIAN: SHAMEKA CARLOS DO REPORT #: [id number] REPORT IS CONFIDENTIAL AND NOT TO BE RELEASED WITHOUT AUTHORIZATION
== END 2018-03-10 11:00 | disposition home or self-care (01) ==
LOC: ED 08:21
DX: J32.9 Chronic sinusitis, unspecified (principal); J40 Bronchitis, not specified as acute or chronic; I10 Essential (primary) hypertension; Z88.8 Allergy status to other drugs, medicaments and biological substances; Z79.899 Other long term (current) drug therapy
CPT/HCPCS: 71046; 80053; 81001; 84484; 85025; 93005; 93010; 99284

== ENCOUNTER 2018-03-13 08:16 | Emergency (ER) | payer MEDICARE, OTHER ==
[~2018-03-13] VITALS: Ht 180.3 cm; Wt 129.5 kg
--- OUTSIDE RECORDS SUMMARY | ~2018-03-13 | XMS | Clinical Summary ---
Demographics + + + | Address | [address] | | | [place] [address] | + + + | Home Phone | | + + + | Preferred Language | Unknown | + + + | Marital Status | Single | + + + | Sikh Affiliation | UNK | + + + | Race | White | + + + | Ethnic Group | Not or | + + + Author + + + | Author | [facility] | + + + | Organization | [facility] | + + + | Address | Unknown | + + + | Phone | Unavailable | + + + Support + + +---------+ + | Name | Relationship | Address | Phone | + + +---------+ + | BETTYE MONTAÑO | ECON | Unknown | | + + +---------+ + Care Team Providers + +------+ + | Care Veneer Jointer Name | Role | Phone | + +------+ + PP | Unavailable | + +------+ + Source Comments KEKE is fully live on both [facility] Ambulatory and [facility] InPatient.[facility] Allergies Not on File Current Medications [...]
--- OUTSIDE RECORDS SUMMARY | ~2018-03-13 | XMS | Clinical Summary ---
Demographics + + + | Address | [address] | | | [place] [address] | + + + | Home Phone | | + + + | Preferred Language | Unknown | + + + | Marital Status | Single | + + + | Gnosticism Affiliation | UNK | + + + | Race | White | + + + | Ethnic Group | Not or | + + + Author + + + | Author | [facility] | + + + | Organization | [facility] | + + + | Address | Unknown | + + + | Phone | Unavailable | + + + Support + + +---------+ + | Name | Relationship | Address | Phone | + + +---------+ + | BETTYE MONTAÑO | ECON | Unknown | | + + +---------+ + Care Team Providers + +------+ + | Care Academic Adviser Name | Role | Phone | + +------+ + PP | Unavailable | + +------+ + Source Comments KEKE is fully live on both [facility] Ambulatory and [facility] InPatient.[facility] Allergies Not on File Current [...]
--- OUTSIDE RECORDS SUMMARY | ~2018-03-13 | XMS | Encounter Summary ---
Demographics + + + | Address | [address] | | | [place] [address] | + + + | Home Phone | | + + + | Preferred Language | Unknown | + + + | Marital Status | Single | + + + | Christianity Affiliation | Unknown | + + + | Race | Unknown | + + + | Ethnic Group | Unknown | + + + Author + + + | Author | [facility] | + + + | Organization | [facility] | + + + | Address [...] Team Providers + +------+ + | Care Agricultural Extension Officer Name | Role | Phone | + [...] GFR 30-59 ml/min | | | | [place] [address] | | | | | | [phone] | | | +--------+ + + + [...] | [address] | [place] [address] | | | LABORATORY | 13 | [...] | [address] | [place] [address] | | | LABORATORY | 13 | [...] | [address] | [place] [address] | | | LABORATORY | 13 | [...] | [address] | [place] [address] | | | LABORATORY | 13 | [...] | [address] | [place] [address] | | | LABORATORY | 13 | [...] | [address] | [place] [address] | | | LABORATORY | 13 | | | + + + + + in this encounter Visit Diagnoses + + | Diagnosis | + + | CKD (chronic kidney disease) stage 3, GFR 30-59 ml/min | + +"
--- OUTSIDE RECORDS SUMMARY | ~2018-03-13 | XMS | Clinical Summary ---
Demographics + + + | Address | [address] | | | [place] [address] | + + + | Home Phone | | + + + | Preferred Language | Unknown | + + + | Marital Status | | + + + | Congregational Affiliation | Unknown | + + + | Race | Unknown | + + + | Ethnic Group | Unknown | + + + Author + + + | Author | [facility] | | | and Peterana | + + + | Organization | [facility] | | | [...] Team Providers + +------+ + | Care Professor Of Rhetoric Name | Role | Phone | + [...] + + + + | Doxycycline | Shortness Of Breath | High | 09/15/19 | | | | | | 17 | | + + + + + + | Metoprolol | Other (See Comments) | Medium | 07/08/19 | 100 mg leg and | | | | | 13 | ankle pain. | + + + + + + | Terazosin | Nausea And Vomiting | | 09/15/19 | | | | [...] | e | + + +-------+---------+------+------+-------+ | Multiple | [...] | | (VITAMIN C) 500 mg | as needed. | | | | | e | [...] | Zinc 25 MG TABS | Take 50 mg by mouth | | | | | Activ | | | Daily. | | | | | e | + + +-------+---------+------+------+-------+ | hydrALAZINE | Take 25 mg by mouth | | | | | Activ | | (APRESOLINE) 25 mg | 3 times daily. | | | | | e | | tablet | | | | | | | + + +-------+---------+------+------+-------+ | spironolactone | Take 25 mg by mouth | | | | | Activ | | (ALDACTONE) 25 mg | Daily. | | | | | e | | tablet | | | | | | | + + +-------+---------+------+------+-------+ | fluticasone | 1 spray by Nasal | | | 04/1 | | Activ | | (FLONASE) 50 | route as needed. | | | 820 | | e | | mcg/nasal spray | | | | 18 | | | + + +-------+---------+------+------+-------+ | losartan (COZAAR) | Take 50 mg by mouth | | | 04 | | Activ | | 50 mg tablet | Daily. | | | 12/23 | | e | | | | | | 18 | | | + + +-------+---------+------+------+-------+ Active Problems + + + | Problem | Noted Date | + + + | Pulmonary hypertension (HCC) | | + + + | Prostate cancer (HCC) | | + + + | Actinic keratosis | | + + + | Anemia, normocytic normochromic | | + + + | Chronic kidney disease, stage 3 (HCC) | | + + + | Essential hypertension | | + + + | Fatigue | | + + + | Gout | | + + + | Homocysteinemia (HCC) | | + + + | PVC (premature ventricular contraction) | | + + + | Thrombocytopenia (HCC) | | + + + | Vitamin D deficiency | | + + + | Bicuspid aortic valve | | + + + | Diastolic dysfunction | | + + + Family History + + +------+ + | Medical History | Relation | Name | Comments | + + +------+ + | Diabetes | Father | | | + + +------+ + | Heart attack | Mother | | | + + +------+ + + +------+ + + | Relation | Name | Status | Comments | + +------+ + + | Father | | | | + +------+ + + | Mother | | | | + +------+ + + Social History + +-------+ +--------+------+ [...] + + + | Blood Pressure | 158/82 | 11/13/2017933 PDT | + + + + | Pulse | 64 | 11/13/2017933 PDT | + + + + | Temperature | - | - | + + + + | Respiratory Rate | 16 | 11/13/2017933 PDT | + + + + | Oxygen Saturation | - | - | + + + + | Inhaled Oxygen | - | - | | Concentration | | | + + + + | Weight | 128.6 kg (283 lb 8.2 | 11/13/2017933 PDT | | | oz) | | + + + + | Height | 180.3 cm (5' 11") | 11/13/2017933 PDT | + + + + | Body Mass Index | 39.54 | 11/13/2017933 PDT | + + + + Plan [...] 65+ | 1 | | | | High/Highest Risk (1 | | | | | of 2 - PCV13) | | | | + + + + + | Adult Annual | | | | | Wellness Visit | 7 | | | + + + + + | Vaccine: Influenza | | | | | (#1) | 8 | | | + [...] +--------+ +---------+ | MEDICARE | MEDICA | [id number] | Medica | [phone]- | | | | RE | | re | [phone] | | | | PART A | | | | | | | AND B | | | | | + +--------+ +--------+ +---------+ | STATE [employer] | STATE | [id number] | Indemn | [phone] | | | | FARM | 7 | ity | 1212 | | | [...] | Self [birth year] Home: | [address] | | | al/Fam | | 1936 | [phone] | | | tracey | | | [phone] | [place] [address] | + +--------+ +--------+ + +
--- OUTSIDE RECORDS SUMMARY | ~2018-03-13 | XMS | Encounter Summary ---
Demographics + + + | Address | [address] | | | [place] [address] | + + + | Home Phone | | + + + | Preferred Language | Unknown | + + + | Marital Status | Single | + + + | Restoration Affiliation | Unknown | + + + | Race | Unknown | + + + | Ethnic Group | Unknown | + + + Author + + + | Author | [employer] | + + + | Organization | [facility] | + + + | Address [...] Team Providers + +------+ + | Care Wallpaper Embosser Helper Name | Role | Phone | + +------+ + | Danny Langley MD | PCP | | + +------+ + Encounter Details +--------+---------+ + + + | Date | Type | Department | Care Team | Description | +--------+---------+ + + + | 12/23/ | Office | [facility] | Jefry Birmingham, | CKD (chronic kidney | | 2018 | Visit | [place] [address] | [address] | disease) stage 3, | | | | [address] | [address] | GFR 30-59 ml/min | | | | [place] [address] | [place] [address] | (Primary Dx); | | | | [phone] | [phone] | Proteinuria, | | | | | | unspecified type; | | | | | | Essential | | | | | | hypertension, benign | +--------+---------+ + + + Social History [...] PM PDT | + + + + in this encounter Instructions Patient Instructions - Jefry Birmingham ARNP - 12/23/2017 2:00 PM PDT Medication Changes made at today's visit: None Next LAB WORK should be done in about: 6 Months You do NOT need to fast for this lab work, keep hydrated. Next APPOINTMENT: in about 6 Months Other Instructions: Low Salt Diet Recommended Please have lab work done 1 weeks prior to your appointment. Make sure you are well hydrated prior to going to the lab and are able to give a urine s ample. Call the office with any questions or concerns. If you are taking a proton pump inhibitor, such as Protonix (omeprazole), talk to your [facility] care provider about if you need this medication local intermodal truck driver. Call our office or your PCP if you have blood pressure over 150/90 on more than one occa heriberto, or low blood pressure that is concerning. If you experience diarrhea and /or vomiting for more than 24 hours with no relief please seek medical help immediately. The treatments that are recommended to slow the progression of Chronic Kidney Disease in clude blood sugar control, blood pressure control, healthy body weight (BMI >= 30 kg/m2), av oid sedentary lifestyle, avoid smoking/ tobacco, avoid NSAIDs, early intervention of worseni ng nausea, vomiting, no or low appetite and/or frequent diarrhea and avoid IV contrast. I urge that you measure your BP at least daily, twice daily, record it and bring record to every appointment with every healthcare provider you see. Do not drink alcohol. Avoid caffeinated beverages such as soda pop, coffee, espresso drinks, energy drinks. Please bring all of your medications in the pharmacy bottles to every visit so a medicat ion review can be done. Make all healthcare providers aware of the presence of kidney disease and request to adj ust all medications according to level of kidney function and to avoid nephrotoxic medicatio ns if possible, including but not limited to antibiotics. Call us with any questions about m eds. DO NOT TAKE any anti-inflammatory drugs such Ibuprofen, Diclofenac, Motrin, Advil, Casiano xicam, naprosyn (Aleve), Celebrex, decongestants containing pseudoephedrine (such as some fo jackie of Sudafed or Actifed) or herbal supplements (because of lack of FDA approval) Short term use of acetaminophen (Tylenol) for fever or pain is okay. If in doubt please call our office for verification. Avoid exposure to IV contrast agents (DYE) used in CT scans, MRI's, Fluoroscopy, or in h eart catheterization procedures unless necessary or for a life saving procedure. If you smoke, you must quit. Smoking worsens kidney disease. in this encounter Progress Notes Jefry Birmingham ARNP - 12/23/2017 2:00 PM PDTFormatting of this note may be different f rom the original. Patient Active Problem List Diagnosis CKD (chronic kidney disease) stage 3, GFR 30-59 ml/min Essential hypertension, benign Nephrolithiasis Obesity Gout Vitamin D deficiency Secondary hyperparathyroidism (HCC) Dear Dr Langley: I saw your Mr. Kellogg in the office today. He is here to F/U on a recent drop in his GFR. In 04/2013, he had a drop in his GFR to 28. He does not remember being sick then nor start ing a new med. The patient has history [...] today, chronic ABREU. 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 Diet is poor. He on and off diarrhea. He denies any blurred vision, tinnitus, headache, fever, chills, or cough. No nausea, vom iting, abdominal pain, melena, or hematochezia. No chest pain, palpitation, dizziness, loss of consciousness, orthopnea, paroxysmal nocturn al dyspnea, or leg edema. He reports he has still been making adjustments to his BP meds on his own at times. He does not check his BP daily. No log today. I warned him of the risks of HTN that include but not limited to stroke. The following portions of the patient's history [...] tablet Take 300 mg by mouth daily. Ascorbic Acid (VITAMIN C) 100 MG tablet Take 500 mg by mouth 2 (two) times daily. cholecalciferol (VITAMIN D-3) 1000 UNITS tablet [...] tablet Take 1 tablet by mouth daily. vitamin E 400 UNIT capsule Take 400 Units by mouth daily. Zinc 25 MG TABS Take 25 mg by mouth. bicalutamide (CASODEX) 50 MG tablet Take 50 mg by mouth. chlorthalidone (HYGROTEN) 25 MG tablet Take 25 mg by mouth daily. diltiazem (CARDIZEM) 60 MG tablet Take 60 mg by mouth daily. meclizine (ANTIVERT) 12.5 MG tablet Take 12.5 mg by mouth 2 (two) times daily. metoprolol (TOPROL-XL) 25 MG 24 hr tablet Take 1 tablet by mouth daily. (Patient sanya shetty: Reported on 12/23/2017) potassium gluconate 595 (99 K) MG tablet Take 595 mg by mouth daily with breakfast. No current facility-administered medications for this visit. Physical Exam: BP 152/60 (BP Location: Left upper arm, Patient Position: Sitting) | Pulse 81 | Ht 1.803 m (5' 11") | Wt 128.5 kg (283 lb 6.4 oz) | SpO2 97% | BMI 39.53 kg/m General appearance: Pleasant, obese, not in acute distress. Neck: Supple without tracheal deviation or jugular venous distension. Head and ENT: Head is atraumatic. The oropharynx is without erythema or thrush. Eyes: Anicteric. The extraocular muscle movements are normal. Lungs: Clear to auscultation bilaterally. There are no wheezes. Heart: Regular rate and rhythm without any rub, gallop. no murmur. Abdominal exam: Soft and nontender with normal bowel sounds. Musculoskeletal: No costovertebral angle tenderness bilaterally. Extremities: [...] normal. Lab Results Component Value Date BUN 29 (A) 12/17/2017 CREATININE 1.14 (A) 12/17/2017 EGFR 61 12/17/2017 NA 139 12/17/2017 K 4.2 12/17/2017 CL 103 12/17/2017 CO2 22 12/17/2017 CA 9.7 12/17/2017 MG 2.0 12/17/2017 ALB 4.3 12/17/2017 HGB 11.4 (A) 12/17/2017 URICACID 5.0 12/17/2017 WBC 5.2 12/17/2017 HCT 31.9 (A) 12/17/2017 LABIRON 20.6 09/01/2012 LABPROT 206.3 (A) 12/17/2017 [id number] 33 12/28/2016 Assessment: Mr. Kellogg is a [...] log today BLOOD SUGAR: Reportedly normal ELECTROLYTES: Normal ANEMIA: Mild now VITAMIN D: Acceptable PARATHYROID HORMONE: Mildly up URIC ACID: Corrected with treatment PROTEINURIA: Mild URINALYSIS: No uti or hematuria VOLUME STATUS: Euvolumic. Discussions: I discussed today with Mr.. Kellogg [...] PLAN: I made no medication changes today. Keep follow up appts with Urology in [place]. BP Charting: he will bring me back his home BP charts in 2 weeks. At that time, I will d ecide whether any changes to his vasoactive regimen are warranted. Follow up labs include: RFP, Magnesium, CBC, intact PTH, uric acid, Urine total protein- to-creatinine ratio, SPIF, SFLC ratio. I advised him to exercise regularly but safely & to try to lose weight methodically; He voiced good understanding. Discussed to avoid alcohol and caffeine. Patient has expressed understanding of today's instructions, all questions have been ans wered to their satisfaction and written instructions have been provided. He will continue to F/U with your office regularly. He will have labs done before he comes back in [address] Langley for the opportunity to follow up with this patient and be part of the care team. Please do not hesitate to call me at any time with questions or concerns. Truly yours, Jefry Birmingham NATURAL GAS TRADER [facility] This note prepared with voice recognition software, if any questions concerning spelling an d/or grammar, please call. in this encounter Plan of Treatment + +--------+ + + | Name | Priori | Associated Diagnoses | Order Schedule | | | ty | | | + +--------+ + + | Renal function panel | Routin | CKD (chronic | Expected: | | | e | kidney disease) | 06/25/2018, Expires: | | | | stage 3, GFR 30-59 | 12/23/2018 | | | | ml/min Proteinuria, | | | | | unspecified type | | | | | Essential | | | | | hypertension, benign | | + +--------+ + + | CBC W/Auto Diff (Reflex to | Routin | CKD (chronic | Expected: | | Manual) | e | kidney disease) | 06/25/2018, Expires: | | | | stage 3, GFR 30-59 | 12/23/2018 | | | | ml/min Proteinuria, | | | | | unspecified type | | | | | Essential | | | | | hypertension, benign | | + +--------+ + + | Magnesium | Routin | CKD (chronic | Expected: | | | e | kidney disease) | 06/25/2018, Expires: | | | | stage 3, GFR 30-59 | 12/23/2018 | | | | ml/min Proteinuria, | | | | | unspecified type | | | | | Essential | | | | | hypertension, benign | | + +--------+ + + | Uric acid | Routin | CKD (chronic | Expected: | | | e | kidney disease) | 06/25/2018, Expires: | | | | stage 3, GFR 30-59 | 06/25/2018 | | | | ml/min Proteinuria, | | | | | unspecified type | | | | | Essential | | | | | hypertension, benign | | + +--------+ + + | PTH intact no calcium | Routin | CKD (chronic | Expected: | | | e | kidney disease) | 06/25/2018, Expires: | | | | stage 3, GFR 30-59 | 12/23/2018 | | | | ml/min Proteinuria, | | | | | unspecified type | | | | | Essential | | | | | hypertension, benign | | + +--------+ + + | Protein / creatinine ratio, urine | Routin | CKD (chronic | Expected: | | | e | kidney disease) | 06/25/2018, Expires: | | | | stage 3, GFR 30-59 | 12/23/2018 | | | | ml/min Proteinuria, | | | | | unspecified type | | | | | Essential | | | | | hypertension, benign | | + +--------+ + + | CORINNE, PE, and FLC Serum | Routin | CKD (chronic | Expected: 12/23/2017 | | | e | kidney disease) | (Approximate), | | | | stage 3, GFR 30-59 | Expires: 12/23/2018 | | | | ml/min Proteinuria, | | | | | unspecified type | | | | | Essential | | | | | hypertension, benign | | + +--------+ + + | SHEYLA/ MARVIN FR CH RAT | Routin | CKD (chronic | Expected: | | | e | kidney disease) | 12/23/2017, Expires: | | | | stage 3, GFR 30-59 | 12/23/2018 | | | | ml/min Proteinuria, | | | | | unspecified type | | | | | Essential | | | | | hypertension, benign | | + +--------+ + + as of this encounter Visit Diagnoses + + | Diagnosis | + + | CKD (chronic kidney disease) stage 3, GFR 30-59 ml/min - Primary | + + | Proteinuria, unspecified type | + + | Essential hypertension, benign | + +
--- OUTSIDE RECORDS SUMMARY | ~2018-03-13 | XMS | Encounter Summary ---
Demographics + + + | Address | [address] | | | [place] [address] | + + + | Home Phone | | + + + | Preferred Language | Unknown | + + + | Marital Status | Single | + + + | Church Affiliation | Unknown | + + + | Race | Unknown | + + + | Ethnic Group | Unknown | + + + Author + + + | Author | [employer] | + + + | Organization | [facility] [facility] | + + + | Address [...] Team Providers + +------+ + | Care Ore Miner Blasting Name | Role | Phone | + [...] GFR 30-59 ml/min | | | | [place] [address] | | | | | | [phone] | | | +--------+ + + + [...] | [address] | [place] [address] | | | LABORATORY | 13 | [...] | [address] | [place] [address] | | | LABORATORY | 13 | [...] | [address] | [place] [address] | | | LABORATORY | 13 | [...] | [address] | [place] [address] | | | LABORATORY | 13 | [...] | [address] | [place] [address] | | | LABORATORY | 13 | [...] | [address] | [place] [address] | | | LABORATORY | 13 | | | + + + + + in this encounter Visit Diagnoses + + | Diagnosis | + + | CKD (chronic kidney disease) stage 3, GFR 30-59 ml/min | + +"
--- OUTSIDE RECORDS SUMMARY | ~2018-03-13 | XMS | Encounter Summary ---
Demographics + + + | Address | [address] | | | [place] [address] | + + + | Home Phone | | + + + | Preferred Language | Unknown | + + + | Marital Status | Single | + + + | Evangelical Affiliation | Unknown | + + + | Race | Unknown | + + + | Ethnic Group | Unknown | + + + Author + + + | Author | [employer] | + + + | Organization | [facility] | + + + | Address [...] Team Providers + +------+ + | Care Pastry Decorator Name | Role | Phone | + [...] | | 2018 | on Only | [address] | [address] | - 12/17/17 - | | | | [address] | | heidi | | | | [place] [address] | | | | | | [phone] | | | +--------+ + + + [...]
--- OUTSIDE RECORDS SUMMARY | ~2018-03-13 | XMS | Encounter Summary ---
Demographics + + + | Address | [address] | | | [place] [address] | + + + | Home Phone | | + + + | Preferred Language | Unknown | + + + | Marital Status | Single | + + + | Yarsani Affiliation | Unknown | + + + | Race | Unknown | + + + | Ethnic Group | Unknown | + + + Author + + + | Author | [employer] | + + + | Organization | [facility] | + + + | Address [...] Team Providers + +------+ + | Care Internet Technology Manager Name | Role | Phone | [...] ml/min | | | | [place] [address] | [place] [address] | (Primary Dx); | | | | [phone] | [phone] | Proteinuria, | | | | | [...] such as Protonix (omeprazole), talk to your [facility] care provider about if you need this medication manager terminal. Call our office or your PCP if [...] today, chronic ABREU. 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 Kellogg is a [...] Keep follow up appts with Urology in [place]. BP Charting: he will bring me back [...] questions or concerns. Truly yours, Jefry [place] [facility] Nephrology This note prepared with voice recognition [...]
--- OUTSIDE RECORDS SUMMARY | ~2018-03-13 | XMS | Clinical Summary ---
Demographics + + + | Address | [address] | | | [place] [address] | + + + | Home Phone | | + + + | Preferred Language | Unknown | + + + | Marital Status | Single | + + + | Gnosticist Affiliation | Unknown | + + + | Race | Unknown | + + + | Ethnic Group | Unknown | + + + Author + + + | Author | [email or web address] | + + + | Organization | [facility] | + + + | Address [...] Team Providers + +------+ + | Care Site Interpreter Name | Role | Phone | + [...] | | 2018 | Visit | | BENCH MOLDER | disease) stage 3, | | | [...] - | | | | | | brynnblad) | +--------+ + + + + | 12/18/ | Orders Only | | Garettger, | CKD (chronic kidney | | 2017 | | | Susan BUREAU DIRECTOR | disease) stage 3, | | | | | | GFR 30-59 ml/min | +--------+ + + + + from [...] | [address] | [place] [address] | | | LABORATORY | 13 | [...] | [address] | [place] [address] | | | LABORATORY | 13 | [...] | [address] | [place] [address] | | | LABORATORY | 13 | [...] | [address] | [place] [address] | | | LABORATORY | 13 | [...] | [address] | [place] [address] | | | LABORATORY | 13 | [...] | [address] | [place] [address] | | | LABORATORY | 13 | [...] +------+-------+ + | MEDICARE | MEDICA | [id number] | | | [address] | | | RE | | | | [place] [address] | | | IP-OP | | | | | + +--------+ +------+-------+ + | COMMERCIAL OTHER | STATE | [id number] | | | | | | FARM [...] | Self | [birth year] | Home: | [address] | | | al/Fam | | 1936 | [phone] | [place], | | | [address] | | | [address] | [place] [address] | + +--------+ +--------+ + +
--- OUTSIDE RECORDS SUMMARY | ~2018-03-13 | XMS | Clinical Summary ---
Demographics + + + | Address | [address] | | | [place] [address] | + + + | Home Phone | | + + + | Preferred Language | Unknown | + + + | Marital Status | Single | + + + | Sikh Affiliation | Unknown | + + + | Race | Unknown | + + + | Ethnic Group | Unknown | + + + Author + + + | Author | [employer] | + + + | Organization | [facility] [employer] [facility] | + + + | Address [...] Team Providers + +------+ + | Care Drier Name | Role | Phone | + [...] | | 2018 | Visit | | WEB GRAPHIC DESIGNER | disease) stage 3, | | | [...] | | 2017 | | | Susan SEWER PIPE LAYER | disease) stage 3, | | | [...] | [address] | [place] [address] | | | LABORATORY | 13 | [...] | [address] | [place] [address] | | | LABORATORY | 13 | [...] | [address] | [place] [address] | | | LABORATORY | 13 | [...] | [address] | [place] [address] | | | LABORATORY | 13 | [...] | [address] | [place] [address] | | | LABORATORY | 13 | [...] | [address] | [place] [address] | | | LABORATORY | 13 | [...] +------+-------+ + | MEDICARE | MEDICA | [id number] | | | [address] | | | RE | | | | [place] [address] | | | IP-OP | | | | | + +--------+ +------+-------+ + | COMMERCIAL OTHER | STATE | [id number] | | | | | | FARM [...] | Self | [birth year] | Home: | [address] | | | al/Fam | | 1936 | [phone] | [place], | | | trace[address] | | | [address] | [place] [address] | + +--------+ +--------+ + +
--- OUTSIDE RECORDS SUMMARY | ~2018-03-13 | XMS | Clinical Summary ---
Demographics + + + | Address | [address] | | | [place] [address] | + + + | Home Phone | | + + + | Preferred Language | Unknown | + + + | Marital Status | | + + + | Shinto Affiliation | Unknown | + + + | Race | Unknown | + + + | Ethnic Group | Unknown | + + + Author + + + | Author | [facility] | | | and Peterana | + + + | Organization | [facility] | | [...] Team Providers + +------+ + | Care Office Support Assistant Name | Role | Phone | [...] +--------+ +---------+ | MEDICARE | MEDICA | [id number] | Medica | [phone]- | | | | RE | | re | [phone] | | | | PART A | | | | | | | AND B | | | | | + +--------+ +--------+ +---------+ | STATE FARM MEDICAL | STATE | [id number] | Indemn | [phone] | | | | FARM | 7 [...] | Self | [birth year] | Home: | [address] | | | al/Fam | | 1936 | [phone] | [address] | | | [address] | | | [phone] | [place] [address] | + +--------+ +--------+ + +
--- OUTSIDE RECORDS SUMMARY | ~2018-03-13 | XMS | Encounter Summary ---
Demographics + + + | Address | [address] | | | [place] [address] | + + + | Home Phone | | + + + | Preferred Language | Unknown | + + + | Marital Status | Single | + + + | Mu-Ism Affiliation | Unknown | + + + | Race | Unknown | + + + | Ethnic Group | Unknown | + + + Author + + + | Author | [employer] | + + + | Organization | [facility] [employer] [facility] | + + + | [...] Team Providers + +------+ + | Care Group Rooms Coordinator Name | Role | Phone | [...] | | 2018 | on Only | [address] | JOHN Davis | - 12/17/17 - | | | | [address] | | heidi | | | | [place] [address] | | | | | | [phone] | | | +--------+ + + + [...]
[~2018-03-13 08:16] MED LIST changes: +ZITHROMAX250 MG PO
--- OUTSIDE RECORDS SUMMARY | 2018-03-13 08:20 | XMS ---
PreManage Notification: VAM[facility] ROBBINS Security Timing Inspector Events No recent Security Events currently on file CRITERIA MET - [facility] - 2 Visits in 30 Days CARE PROVIDERS Danny Lanlgey MD PHONE: Unknown Ayla has no Care Guidelines for this patient. [facility] VISIT COUNT (12 MO.) 4 [facility] TOTAL 4 NOTE: Visits indicate total known visits. ED/UCC VISIT TRACKING (12 MO.) 03/13/2018 08:17 [facility] [place] TYPE: Emergency COMPLAINT: - DIZZINESS 03/10/2018 08:22 [facility] [place] TYPE: Emergency COMPLAINT: - DIZZINESS DIAGNOSES: - Allergy status to other drugs, medicaments and biological substances status - Other data warehouse administrator (current) drug therapy - Chronic sinusitis, unspecified - Dizziness and giddiness - Essential (primary) hypertension - Bronchitis, not specified as acute or chronic 09/18/2017 19:45 [facility] [place] TYPE: Emergency COMPLAINT: - DIZZIENESS DIAGNOSES: - Allergy status to other antibiotic agents status - Dizziness and giddiness - Allergy status to other drugs, medicaments and biological substances status - Essential (primary) hypertension - Other data warehouse administrator (current) drug therapy 08/19/2017 16:25 [facility] [place] TYPE: Emergency COMPLAINT: - DIZZINESS INPATIENT VISIT TRACKING (12 MO.) 08/19/2017 16:26 [facility] [place] TYPE: Medical Surgical COMPLAINT: - HYPERTENSION URGENCY DIAGNOSES: - Hypertensive urgency - Other data warehouse administrator (current) drug therapy - Malignant neoplasm of prostate - Allergy status to other drugs, medicaments and biological substances status - Essential (primary) hypertension - Gout, unspecified - Bradycardia, unspecified - Chronic sinusitis, unspecified - Allergy status to other antibiotic agents status - Ataxia, unspecified [email or web address]
[2018-03-13] MEDS ORDERED: MECLIZINE HCL25 MG PO (11:12)
--- NOTE | 2018-03-14 08:23 | EKG ---
[facility] [address] [facility] [place] [address] Signed Sinus bradycardia T wave abnormality, consider lateral ischemia Abnormal ECG When compared with ECG of 10-MAR-2018 08:43, No significant change was found Confirmed by FREDDY OLIVA MD ([id number]) on 03/14/2018 8:23:09 AM Electronically Signed By: FREDDY OLIVA MD 03/14/18822 PATIENT NAME: VAMSI ROBBINS Electrocardiogram DATE OF : 35 PHYSICIAN: FREDDY OLIVA MD REPORT #: [id number] REPORT IS CONFIDENTIAL AND NOT TO BE RELEASED WITHOUT AUTHORIZATION
== END 2018-03-13 12:14 | disposition home or self-care (01) ==
LOC: ED 08:16
DX: R42 Dizziness and giddiness (principal); J32.9 Chronic sinusitis, unspecified; I10 Essential (primary) hypertension; Z87.01 Personal history of pneumonia (recurrent); Z88.1 Allergy status to other antibiotic agents; Z88.8 Allergy status to other drugs, medicaments and biological substances; Z79.899 Other long term (current) drug therapy
CPT/HCPCS: 36415; 70450; 84484; 93005; 93010; 99284

== ENCOUNTER 2018-08-27 12:34 | Inpatient (IN) | payer MEDICARE, OTHER ==
[~2018-08-27] VITALS: Ht 180.3 cm; Wt 127.5 kg
--- OUTSIDE RECORDS SUMMARY | ~2018-08-27 | XMS | Encounter Summary ---
Demographics + + + | Address | [address] | | | [place] [address] | + + + | Home Phone | | + + + | Preferred Language | Unknown | + + + | Marital Status | Single | + + + | Episcopalian Affiliation | Unknown | + + + | Race | Unknown | + + + | Ethnic Group | Unknown | + + + Author + + + | Author | [email or web address] [facility] | + + + | Organization | [facility] [email or web address] [facility] | + + + | Address [...] Team Providers + +------+ + | Care Care Team Coordinator Scheduler Name | Role | Phone | + +------+ + | Danny Langley MD | PCP | | + +------+ + Encounter Details +--------+ + + + + | Date | Type | Department | Care Team | Description | +--------+ + + + + | 06/30/ | Orders Only | [facility] | Javad, | CKD (chronic kidney | | 2019 | | [place] [address] [place] | disease) stage 3, | | | | [address] | | GFR 30-59 ml/min; | | | | [place] [address] | | Proteinuria, | | | | [phone] | | unspecified type; | | | | | | Essential | | | | | | hypertension, benign | +--------+ + + + + Social History + [...] on file | | + + + as of this encounter Plan of Treatment Not on fileas of this encounter Procedures + +--------+ + + + | Procedure Name | Priori | Date/Time | Associated Diagnosis | Comments | | | ty | | | | + +--------+ + + + | PROTEIN / CREATININE | Routin | 06/27/2018 | CKD (chronic | Results for this | | RATIO, URINE | e | 12:15 PM | kidney disease) | procedure are in the | | | | PST | stage 3, GFR 30-59 | results section. | | | | | ml/min Proteinuria, | | | | | | unspecified type | | | | | | Essential | | | | | | hypertension, benign | | + +--------+ + + + | CBC W/AUTO DIFF | Routin | 06/27/2018 | CKD (chronic | Results for this | | (REFLEX TO MANUAL) | e | 12:15 PM | kidney disease) | procedure are in the | | | | PST | stage 3, GFR 30-59 | results section. | | | | | ml/min Proteinuria, | | | | | | unspecified type | | | | | | Essential | | | | | | hypertension, benign | | + +--------+ + + + | PTH INTACT NO | Routin | 06/27/2018 | CKD (chronic | Results for this | | CALCIUM | e | 12:15 PM | kidney disease) | procedure are in the | | | | PST | stage 3, GFR 30-59 | results section. | | | | | ml/min Proteinuria, | | | | | | unspecified type | | | | | | Essential | | | | | | hypertension, benign | | + +--------+ + + + | MAGNESIUM | Routin | 06/27/2018 | CKD (chronic | Results for this | | | e | 12:15 PM | kidney disease) | procedure are in the | | | | PST | stage 3, GFR 30-59 | results section. | | | | | ml/min Proteinuria, | | | | | | unspecified type | | | | | | Essential | | | | | | hypertension, benign | | + +--------+ + + + | RENAL FUNCTION PANEL | Routin | 06/27/2018 | CKD (chronic | Results for this | | | e | 12:15 PM | kidney disease) | procedure are in the | | | | PST | stage 3, GFR 30-59 | results section. | | | | | ml/min Proteinuria, | | | | | | unspecified type | | | | | | Essential | | | | | | hypertension, benign | | + +--------+ + + + in this encounter Results Protein / creatinine ratio, urine (06/27/2018 12:15 PM) + + + + + | Component | Value | Ref Range | Performed At | + + + + + | UR | 282.6 (A) | 0 - 150 | [facility] | | PROTEIN/CREATININE | | | LABORATORY | + + + + + + + | Specimen | + + | Urine | + + + + + + + | Performing | Address | City/State/Zipcode | Phone Number | | Organization | | | | + + + + + | [facility] | [address] | [place] [address] | [phone] | | LABORATORY | [address] | | | + + + + + Renal function panel (06/27/2018 12:15 PM) + +---------+ + + | Component | Value | Ref Range | Performed At | + +---------+ + + | GLUCOSE | 101 (A) | 70 - 100 mg/dL | [facility] | | | | | LABORATORY | + +---------+ + + | BUN | 21 | 6 - 23 mg/dL | [facility] | | | | | LABORATORY | + +---------+ + + | CREATININE | 1.08 | 0.70 - 1.11 mg/dL | [facility] | | | | | LABORATORY | + +---------+ + + | PHOSPHORUS | 2.9 | 2.5 - 5.0 mg/dL | [facility] | | | | | LABORATORY | + +---------+ + + | Albumin | 4.5 | 3.5 - 5.0 | [facility] | | | | | LABORATORY | + +---------+ + + | SODIUM | 145 (A) | 132 - 143 mmol/L | [facility] | | | | | LABORATORY | + +---------+ + + | POTASSIUM | 4.0 | 3.6 - 5.1 mmol/L | [facility] | | | | | LABORATORY | + +---------+ + + | CHLORIDE | 106 | 95 - 112 mmol/L | [facility] | | | | | LABORATORY | + +---------+ + + | CO2 | 27 | 19 - 31 mmol/L | [facility] | | | | | LABORATORY | + +---------+ + + | ANION GAP AGAP | 16.0 | 7 - 21 mmol/L | [facility] | | | | | LABORATORY | + +---------+ + + | GFR MDRD Non Af Amer | | | [facility] | | | | | LABORATORY | + +---------+ + + | Phosphorus,Inorganic | | | [facility] | | | | | LABORATORY | + +---------+ + + | BUN/CREAT | 19.6 | 6.0 - 28.6 | [facility] | | | | | LABORATORY | + +---------+ + + | CALCIUM | 10.3 | 8.5 - 10.3 mg/dL | [facility] | | | | | LABORATORY | + +---------+ + + | EGFR | 66 | 60 - 140 mg/dL | [facility] | | | | | LABORATORY | + +---------+ + + + + | Specimen | + + | Blood | + + + + + + + | Performing | Address | City/State/Zipcode | Phone Number | | Organization | | | | + + + + + | [facility] | [address] | [place] [address] | [phone] | | LABORATORY | [address] | | | + + + + + Magnesium (06/27/2018 12:15 PM) + +-------+ + + | Component | Value | Ref Range | Performed At | + +-------+ + + | MAGNESIUM | 1.8 | 1.7 - 2.5 mg/dL | [facility] | | | | | LABORATORY | + +-------+ + + + + | Specimen | + + | Blood | + + + + + + + | Performing | Address | City/State/Zipcode | Phone Number | | Organization | | | | + + + + + | [facility] | [address] | [place] [address] | [phone] | | LABORATORY | [address] | | | + + + + + CBC W/Auto Diff (Reflex to Manual) (06/27/2018 12:15 PM) + + + + + | Component | Value | Ref Range | Performed At | + + + + + | WBC | 6.6 | 4.5 - 11.0 10^3/mL | [facility] | | | | | LABORATORY | + + + + + | RBC | 3.55 (A) | 4.3 - 5.7 10^6/ L | [facility] | | | | | LABORATORY | + + + + + | HGB | 11.5 (A) | 13.5 - 18.0 g/dL | [facility] | | | | | LABORATORY | + + + + + | HCT | 33.5 (A) | 41 - 50 % | [facility] | | | | | LABORATORY | + + + + + | MCV | 94.2 | 81 - 99 fL | [facility] | | | | | LABORATORY | + + + + + | MCH | 32 | 27 - 33 pg | [facility] | | | | | LABORATORY | + + + + + | MCHC | 34 | 30 - 36 g/dL | [facility] | | | | | LABORATORY | + + + + + | PLT | 139 (A) | 140 - 440 K/ L | [facility] | | | | | LABORATORY | + + + + + | RDW SD | 13.7 | 10.5 - 15.0 % | [facility] | | | | | LABORATORY | + + + + + | MPV | | fL | [facility] | | | | | LABORATORY | + + + + + | DIFF TYPE | | | [facility] | | | | | LABORATORY | + + + + + | NEUTROPHILS | 69.4 | 39 - 80 % | [facility] | | | | | LABORATORY | + + + + + | LYMPHOCYTES | 23.4 (A) | 24 - 44 % | [facility] | | | | | LABORATORY | + + + + + | MONOCYTES | 5.1 | 0 - 12 % | [facility] | | | | | LABORATORY | + + + + + | EOSINOPHILS | 1.7 | 0 - 6 % | [facility] | | | | | LABORATORY | + + + + + | BASOPHILS | 0.4 | 0 - 2 % | [facility] | | | | | LABORATORY | + + + + + | NEUTROPHILS ABS | | / L | [facility] | | | | | LABORATORY | + + + + + | LYMPHOCYTES ABS | | / L | [facility] | | | | | LABORATORY | + + + + + | MONOCYTES ABS | | / L | [facility] | | | | | LABORATORY | + + + + + | EOSINOPHILS ABS | | / L | [facility] | | | | | LABORATORY | + + + + + | BASOPHILS ABS | | / L | [facility] | | | | | LABORATORY | + + + + + + + | Specimen | + + | Blood | + + + + + + + | Performing | Address | City/State/Zipcode | Phone Number | | Organization | | | | + + + + + | [facility] | [address] | [place] [address] | [phone] | | LABORATORY | [address] | | | + + + + + PTH intact no calcium (06/27/2018 12:15 PM) + + + + + | Component | Value | Ref Range | Performed At | + + + + + | PTH INTACT NO | 65.45 (A) | 15 - 65 pg/mL | [facility] | | CALCIUM | | | LABORATORY | + + + + + + + | Specimen | + + | Blood | + + + + + + + | Performing | Address | City/State/Zipcode | Phone Number | | Organization | | | | + + + + + | [facility] | [address] | [place] [address] | [phone] | | LABORATORY | [address] | | | + + + + + in this encounter Visit Diagnoses + + | Diagnosis | + + | CKD (chronic kidney disease) stage 3, GFR 30-59 ml/min | + + | Proteinuria, unspecified type | + + | Essential hypertension, benign | + +"
--- OUTSIDE RECORDS SUMMARY | ~2018-08-27 | XMS | Encounter Summary ---
Demographics + + + | Address | [address] | | | [place] [address] | + + + | Home Phone | | + + + | Preferred Language | Unknown | + + + | Marital Status | Single | + + + | Denominational Affiliation | Unknown | + + + | Race | Unknown | + + + | Ethnic Group | Unknown | + + + Author + + + | Author | [employer] | + + + | Organization | [facility] [employer] [facility] | + + + | Address [...] Team Providers + +------+ + | Care Draw Frame Runner Name | Role | Phone | + +------+ + | Danny Langley MD | PCP | | + +------+ + Encounter Details +--------+ + + + + | Date | Type | Department | Care Team | Description | +--------+ + + + + | 06/30/ | Orders Only | [facility] | Javad, | CKD (chronic kidney | | 2019 | | [place] [address] [place] [address] | disease) stage 3, | | | | [address] | | GFR 30-59 ml/min; | | | | [place] [address] | | Proteinuria, | | | | [phone] | | unspecified type; | | | [...] + + + | [facility] | [address] | [place] [address] | [phone] | | LABORATORY | [address] | | [...] + + + | [facility] | [address] | [place] [address] | [phone] | | LABORATORY | [address] | | [...] + + + | [facility] | [address] | [place] [address] | [phone] | | LABORATORY | [address] | | [...] + + + | [facility] | [address] | [place] [address] | [phone] | | LABORATORY | [address] | | [...] | + + + + + | [facility] | [address] | [place] [address] | [phone] | | LABORATORY | [address] | | | + + + + + in this encounter Visit Diagnoses + + | Diagnosis | + + | CKD (chronic kidney disease) stage 3, GFR 30-59 ml/min | + + | Proteinuria, unspecified type | + + | Essential hypertension, benign | + +"
--- OUTSIDE RECORDS SUMMARY | ~2018-08-27 | XMS | Clinical Summary ---
Demographics + + + | Address | [address] | | | [place] [address] | + + + | Home Phone | | + + + | Preferred Language | Unknown | + + + | Marital Status | Single | + + + | Rastafari Affiliation | Unknown | + + + | Race | Unknown | + + + | Ethnic Group | Unknown | + + + Author + + + | Author | [employer] | + + + | Organization | [facility] | + + + | Address [...] Team Providers + +------+ + | Care Mainframe Architect Name | Role | Phone | + [...] | | | + + +--------+---------+------+------+-------+ | hydrALAZINE | Take 25 mg by mouth | | | | | Activ | | (APRESOLINE) 25 MG | 3 (three) times | | | | | e | | tablet | daily. | | | | | | + + +--------+---------+------+------+-------+ | spironolactone | Take 25 mg by mouth | | | | | Activ | | (ALDACTONE) 25 MG | daily. | | | | | e | | tablet | | | | | | | + + +--------+---------+------+------+-------+ Active Problems + + + | Problem | Noted Date | + + + | Proteinuria | 12/23/2017 | + + + | Secondary hyperparathyroidism [...] deficiency | 07/07/2012 | + + + Resolved Problems +---------+ + + | Problem | Noted | Resolved | | | Date | Date | +---------+ + + | Gout | 07/08/19 | | | | 13 | 9 | +---------+ + + Encounters +--------+ + + + + | Date | Type | Specialty | Care Team | Description | +--------+ + + + + | 08/06/ | Office | | Palmblad, Jefry, | CKD (chronic kidney | | 2019 | Visit | | COST ESTIMATING MANAGER | disease) stage 3, | | | | | | GFR 30-59 ml/min | | | | | | (Primary Dx); | | | | | | Essential | | | | | | hypertension, | | | | | | benign; Proteinuria, | | | | | | unspecified type | +--------+ + + + + | 06/30/ | Documentati | | Javad, | Labs Only (06/27/18) | | 2019 | on Only | | KELLEY Canales | | +--------+ + + + + | 06/30/ | Orders Only | | Javad, | CKD (chronic kidney | | 2018 | | | KELLEY Canales | disease) stage 3, | | | | | | GFR 30-59 ml/min; | | | | | | Proteinuria, | | | | | | unspecified type; | | | | | | Essential | | | | | | hypertension, benign | +--------+ + + + + from Last 3 Months Family History + + +------+ + | [...] + + + | Blood Pressure | 150/72 | 08/06/2018 10:43 AM PDT | + + + + | Pulse | 77 | 08/06/2018 10:43 AM PDT | + + + + | Temperature | 35.6 C (96 F) | 01/04/2017 11:01 AM PDT | + + + + | Respiratory Rate | 14 | 09/11/2013 10:25 AM PDT | + + + + | Oxygen Saturation | 97% | 08/06/2018 10:43 AM PDT | + + + + | Inhaled Oxygen | - | - | | Concentration | | | + + + + | Weight | 130 kg (286 lb 9.6 | 08/06/2018 10:43 AM PDT | | | oz) | | + + + + | Height | 180.3 cm (5' 11") | 08/06/2018 10:43 AM PDT | + + + + | Body Mass Index | 39.97 | 08/06/2018 10:43 AM PDT | + + + + Plan of Treatment + + + + + | Health Maintenance | Due Date | Last Done | Comments | + + + + + | Vaccine: | | | | | Dtap/Tdap/Td (1 - | 5 | | | | Tdap) | | | | + + + + + | Vaccine: Zoster (1 | | | | | of 2) | 6 | | | + + + + + | Vaccine: | | | | | Pneumococcal 65+ | 1 | | | | Low/Medium Risk (1 | | | | | of 2 - PCV13) | | | | + + + + + | Vaccine: Influenza | | | | | (Season Ended) | 9 | | | + + + + + Procedures + +--------+ + + + | Procedure Name | Priori | Date/Time | Associated Diagnosis | Comments | | | ty | | | | + +--------+ + + + | URIC ACID | Routin | 06/27/2018 | | Results for this | | | e | 12:15 PM | | procedure are in the | | | | PST | | results section. | + +--------+ + + + | [...] | | + +--------+ + + + from Last 3 Months Results Protein / creatinine ratio, urine (06/27/2018 [...] + + + | [facility] | [address] | [place] [address] | [phone] | | LABORATORY | Blvd. | | [...] + + + | [facility] | [address] | [place] [address] | [phone] | | LABORATORY | Blvd. | | | + + + + + Uric acid (06/27/2018 12:15 PM) + +-------+ + + | Component | Value | Ref Range | Performed At | + +-------+ + + | URIC ACID | 4.7 | 4.4 - 7.6 | | + +-------+ + + + + | Specimen | + + | Blood | + + PTH intact no calcium (06/27/2018 [...] + + + | [facility] | [address] | [place] [address] | [phone] | | LABORATORY | Blvd. | | | + + + + + Magnesium (06/27/2018 12:15 PM) + +-------+ + + | Component | Value | Ref Range | Performed At | + +-------+ + + | MAGNESIUM | 1.8 | 1.7 - 2.5 mg/dL | [facility] | | | | | LABORATORY | + +-------+ + + + + | Specimen | + + | Blood | + + + + + + + | Performing | Address | City/State/Zipcode | Phone Number | | Organization | | | | + + + + + | [facility] | [address] | [place] [address] | [phone] | | LABORATORY | Blvd. | | [...] + + + | [facility] | [address] | [place] [address] | [phone] | | LABORATORY | Blvd. | | | + + + + + from Last 3 Months Insurance + +--------+ +------+-------+ + | Payer | Benefi | Subscriber | Type | Phone | Address | | | t Plan | ID | | | | | | / | | | | | | | Group | | | | | + +--------+ +------+-------+ + | MEDICARE | MEDICA | [id number] | | | [address] | | | RE | | | | [place] [address] | | | IP-OP | | | | | + +--------+ +------+-------+ + | COMMERCIAL OTHER | STATE | [id number] | | | | | | FARM | 7 | | | | | | MEDICA [...] | Self | [birth year] | Home: | [address] | | | al/Fam | | 1936 | [phone] | [place], | | | [place] | | | [phone] | [place] [address] | + +--------+ +--------+ + +
--- OUTSIDE RECORDS SUMMARY | ~2018-08-27 | XMS | Clinical Summary ---
Demographics + + + | Address | [address] | | | [place] [address] | + + + | Home Phone | | + + + | Preferred Language | Unknown | + + + | Marital Status | Single | + + + | Hindu Affiliation | Unknown | + + + | Race | Unknown | + + + | Ethnic Group | Unknown | + + + Author + + + | Author | [employer] | + + + | Organization | [facility] [employer] [facility] | + + + | Address [...] Team Providers + +------+ + | Care Driver'S Education Instructor Name | Role | Phone | + [...] | | 2019 | Visit | | WOOD FINISHER | disease) stage 3, | | | [...] + + + | [facility] | [address] | [place] [address] | [phone] | | LABORATORY | Blvd[address] | | [...] | [address] | [place] [address] | [phone] | | LABORATORY | Blvd. | | [...] + + + | [facility] | [address] | [place] [address] | [phone] | | LABORATORY | Blvd. | | | + + + + + Magnesium (06/27/2018 12:15 PM) + +-------+ + + | Component | Value | Ref Range | Performed At | + +-------+ + + | MAGNESIUM | 1.8 | 1.7 - 2.5 mg/dL | [facility] | | | | | LABORATORY | + +-------+ + + + + | Specimen | + + | Blood | + + + + + + + | Performing | Address | City/State/Zipcode | Phone Number | | Organization | | | | + + + + + | [facility] | [address] | [place] [address] | [phone] | | LABORATORY | Blvd[address] | | [...] + + + | [facility] | [address] | [place] [address] | [phone] | | LABORATORY | Blvd. | | [...] +------+-------+ + | MEDICARE | MEDICA | [id number] | | | [address] | | | RE | | | | [place] [address] | | | IP-OP | | | | | + +--------+ +------+-------+ + | COMMERCIAL OTHER | STATE | [id number] | | | | | | FARM [...] | Self | [birth year] | Home: | [address] | | | al/Fam | | 1936 | [phone] | [place], | | | [place] | | | [phone] | [place] [address] | + +--------+ +--------+ + +
--- OUTSIDE RECORDS SUMMARY | ~2018-08-27 | XMS | Clinical Summary ---
Demographics + + + | Address | [address] | | | [place] [address] | + + + | Home Phone | | + + + | Preferred Language | Unknown | + + + | Marital Status | Single | + + + | Latter-Day Affiliation | UNK | + + + | Race | White | + + + | Ethnic Group | Not or | + + + Author + + + | Author | [facility] | + + + | Organization | [facility] | + + + | Address | Unknown | + + + | Phone | Unavailable | + + + Support + + +---------+ + | Name | Relationship | Address | Phone | + + +---------+ + | BETTYE MONTAÑO | ECON | Unknown | | + + +---------+ + Care Team Providers + +------+ + | Care Padder Cushion Name | Role | Phone | + +------+ + PP | Unavailable | + +------+ + Source Comments KEKE is fully live on both [facility] and [facility] Allergies Not on File Current Medications [...]
--- OUTSIDE RECORDS SUMMARY | ~2018-08-27 | XMS | Encounter Summary ---
Demographics + + + | Address | [address] | | | [place] [address] | + + + | Home Phone | | + + + | Preferred Language | Unknown | + + + | Marital Status | Single | + + + | Yazidi Affiliation | Unknown | + + + | Race | Unknown | + + + | Ethnic Group | Unknown | + + + Author + + + | Author | [employer] | + + + | Organization | [facility] [employer] | + + + | Address [...] Team Providers + +------+ + | Care Paperhanger Supervisor Name | Role | Phone | + +------+ + | Danny Langley MD | PCP | | + +------+ + Encounter Details +--------+---------+ + + + | Date | Type | Department | Care Team | Description | +--------+---------+ + + + | 08/06/ | Office | [facility] | Jefry Birmingham, | CKD (chronic kidney | | 2019 | Visit | [address] | [address] | disease) stage 3, | | | | [address] | [address] | GFR 30-59 ml/min | | | | [place] [address] | [place] [address] | (Primary Dx); | | | | [phone] | [phone] | Essential | | | | | | hypertension, | | | | | | benign; Proteinuria, | | | | | | unspecified type | +--------+---------+ + + + Social History + +-------+ [...] + + + as of this encounter Last Filed Vital Signs + + + + | Vital Sign | Reading | Time Taken | + + + + | Blood Pressure | 150/72 | 08/06/2018 10:43 AM PDT | + + + + | Pulse | 77 | 08/06/2018 10:43 AM PDT | + + + + | Temperature | - | - | + + + + | Respiratory Rate | - | - | + + + + | Oxygen [...] AM PDT | + + + + in this encounter Instructions Patient Instructions - Jefry Birmingham ARNP - 08/06/2018 11:40 AM PDTMedication Changes made at today's visit: None Next LAB WORK in about: 6 Months You do NOT need to fast for this lab work, keep hydrated. Next APPOINTMENT: in about 6 Months Please have lab work done 1 weeks prior to your appointment. Make sure you are well hydrated prior to going to the lab and are able to give a urine s ample. Call the office with any questions or concerns. Please bring all of your medications in the pharmacy bottles to every visit so a medicat ion review can be done. We recommend to measure your BP at least daily, twice daily if possible, record it and b ring record to every appointment with every healthcare provider you see. DO NOT TAKE any anti-inflammatory drugs such Ibuprofen, Diclofenac, Motrin, Advil, Casiano xicam, naprosyn (Aleve), Celebrex, decongestants containing pseudoephedrine (such as some fo jackie of Sudafed or Actifed) or herbal supplements (because of lack of FDA approval) Call our office if you have blood pressure over 150/90 on more than one occasion, or low blood pressure that is concerning. If you experience diarrhea and /or vomiting for more than 24 hours with no relief please seek medical help immediately. The treatments that are recommended to slow the progression of Chronic Kidney Disease in clude blood sugar control, blood pressure control, healthy body weight (BMI less than 30 kg/ m2), avoid sedentary lifestyle, avoid smoking/ tobacco, avoid NSAIDs, worsening nausea, vomi ting, no or low appetite and/or frequent diarrhea and avoid IV contrast. Do not drink alcohol, drink water when thirsty. If you smoke, you must quit. Smoking worsens kidney disease. Avoid caffeinated beverages such as soda pop, coffee, espresso drinks, energy drinks. Make all healthcare providers aware of the presence of kidney disease and request to adj ust all medications according to level of kidney function and to avoid nephrotoxic medicatio ns if possible, including but not limited to antibiotics. Call us with any questions. Short term use of acetaminophen (Tylenol) for fever or pain is okay. If in doubt please call our office for verification. Avoid exposure to IV contrast agents (DYE) used in CT scans, MRI's, Fluoroscopy, or in h eart catheterization procedures unless necessary or for a life saving procedure. Low salt diet, less than 2gm daily. in this encounter Progress Notes Jefry Birmingham ARNP - 08/06/2018 11:40 AM PDTFormatting of this note may be different f rom the original. Patient Active Problem List Diagnosis CKD (chronic kidney disease) stage 3, GFR 30-59 ml/min Essential hypertension, benign Nephrolithiasis Obesity Gout Vitamin D deficiency Secondary hyperparathyroidism (HCC) Proteinuria Dear Dr Langley: I saw your Mr. Kellogg in the office today. He is here to F/U on a prior drop in his GFR. In 04/2013, he had a drop in his GFR to 28. He does not remember being sick then nor starti ng a new med. The patient has history of hypertension since the late . He denies any history of prol onged exposure to NSAIDs or recent exposure to known nephrotoxins. He denies any recent neph rolithiasis or pyelonephritis. He did pass a kidney stone several years ago. He tells me xuan t he's had history of urinary retention, gross hematuria or dysuria. he has incontinence sym ptoms. No symptoms of UTI. For male patients: no history of frequency, nocturia, weak urinary stream, hesitancy, inter mittence, incomplete emptying or urgency. He has 0 nightly nocturia. he has no foamy urine either. His baseline Creatinine is 1.20. There is no family history of renal genetic diseas es such as PKD. He says that he feels 'good ' today, chronic ABREU. He sees urology in [place] for high P SA, is on Bicalutamide 50mg daily. Diet is poor. He has chronic on and off diarrhea. He reports he has some finger device that checks his BP at home. Not keeping a log and rare ly checking home BP. He denies any blurred vision, tinnitus, headache, fever, chills, or cough. No nausea, vom iting, abdominal pain, melena, or hematochezia. No chest pain, palpitation, dizziness, loss of consciousness, orthopnea, paroxysmal nocturn al dyspnea, or leg edema. Sheyla/Wong FLC ratio SIFE were ordered in mid 2018, I am unable to find results for these. The following portions of the patient's history were reviewed and updated as appropriate: a llergies, current medications, past medical history, past social history, past surgical hist ory, family history and problem list. U/S from 09/2012, showing no evidence of any significant renal anatomic abnormalities, exce pt for a 1.5-cm midpole right kidney stone. As in History of Present Illness & in Assessment. All the pertinent systems were reviewed a nd were otherwise negative. Current Outpatient Prescriptions Medication Sig Dispense Refill allopurinol (ZYLOPRIM) 300 MG tablet Take 300 mg by mouth daily. bicalutamide (CASODEX) 50 MG tablet Take 50 mg by mouth. chlorthalidone (HYGROTEN) 25 MG tablet Take 25 mg by mouth daily. cholecalciferol (VITAMIN D-3) 1000 UNITS tablet Take 1,000 Units by mouth daily. COD LIVER OIL PO Take 1 tablet by mouth daily. hydrALAZINE (APRESOLINE) 25 MG tablet Take 25 mg by mouth 3 (three) times daily. losartan (COZAAR) 50 MG tablet Take 1 tablet by mouth 2 (two) times daily. 270 tablet 3 Magnesium 250 MG TABS tablet Take 250 mg by mouth daily. Multiple Vitamin (MULTIVITAMIN) tablet Take 1 tablet by mouth daily. spironolactone (ALDACTONE) 25 MG tablet Take 25 mg by mouth daily. Zinc 25 MG TABS Take 25 mg by mouth. Ascorbic Acid (VITAMIN C) 100 MG tablet Take 500 mg by mouth 2 (two) times daily. diltiazem (CARDIZEM) 60 MG tablet Take 60 mg by mouth daily. meclizine (ANTIVERT) 12.5 MG tablet Take 12.5 mg by mouth 2 (two) times daily. metoprolol (TOPROL-XL) 25 MG 24 hr tablet Take 1 tablet by mouth daily. (Patient not cirilo shetty: Reported on 12/23/2017) potassium gluconate 595 (99 K) MG tablet Take 595 mg by mouth daily with breakfast. vitamin E 400 UNIT capsule Take 400 Units by mouth daily. No current facility-administered medications for this visit. Physical Exam: BP 150/72 (BP Location: Right upper arm, Patient Position: Sitting) | Pulse 77 | Ht 1.803 m (5' 11") | Wt 130 kg (286 lb 9.6 oz) | SpO2 97% | BMI 39.97 kg/m General appearance: Pleasant, obese, not in acute distress. Neck: Supple without tracheal deviation or jugular venous distension. Head and ENT: Head is atraumatic. The oropharynx is without erythema or thrush. Eyes: Anicteric. The extraocular muscle movements are normal. Lungs: Clear to auscultation bilaterally. There are no wheezes. Heart: Regular rate and rhythm without any rub, gallop. no murmur. Abdominal exam: Soft and obese, nontender Musculoskeletal: No costovertebral angle tenderness bilaterally. Extremities: Warm to touch with trace leg edema. There is no cyanosis. Skin: There are no rashes, petechiae, or ecchymosis. Neurological: Awake, alert, and oriented to time, place, and person. Normal gross motor po wer. There is no asterixis. Psychiatric: The patient s behavior is normal. Judgment and thought content are normal. Lab Results Component Value Date BUN 21 06/27/2018 CREATININE 1.08 06/27/2018 EGFR 66 06/27/2018 NA 145 (A) 06/27/2018 K 4.0 06/27/2018 CL 106 06/27/2018 CO2 27 06/27/2018 CA 10.3 06/27/2018 PHOS 2.9 06/27/2018 MG 1.8 06/27/2018 ALB 4.5 06/27/2018 HGB 11.5 (A) 06/27/2018 URICACID 4.7 06/27/2018 WBC 6.6 06/27/2018 HCT 33.5 (A) 06/27/2018 LABIRON 20.6 09/01/2012 LABPROT 282.6 (A) 06/27/2018 [id number] 33 12/28/2016 Assessment: Mr. Kellogg is a 82 y.o. male patient history of acute kidney injury (acute renal failure) t hat was in the setting of a likely volume depletion in the setting of intake of an ARB & diu retic. The most likely pathology here was that of vasomotor nephropathy that has improved no w. RENAL FUNCTION: Relatively stable for him BLOOD PRESSURE: Unknown control at home, no log today BLOOD SUGAR: Reportedly normal ELECTROLYTES: Acceptable ANEMIA: Mild VITAMIN D: Acceptable PARATHYROID HORMONE: Mildly up URIC ACID: Corrected with treatment PROTEINURIA: Mild URINALYSIS: No UTI or hematuria VOLUME STATUS: Euvolumic Discussions: I discussed today with Mr.. Kellogg the meaning of his recent YO & CKD and the interaction of that with his hypertension. I stressed the importance of keeping his BP controlled and a voiding getting dehydrated if we are to have a chance at helping preserve his renal function . He showed good understanding. I gave him instructions on how to chart his blood pressure in the appropriate manner at home. he is to call us if they fall outside of the optimal pr ovided range. he will bring his sphygmomanometer for validation once a year. He will stric tly abide by a low salt & low purine diet and will avoid all kinds of NSAIDs for analgesia. PLAN: I made no medication changes today. I asked him to take hydralazine 25mg TID, not BID. Recommended he get a arm BP machine, keep log, check BP BID. He may benefit from a sleep study. Continue to follow up with Urology in [place]. BP Charting: he will bring me back his home BP charts in 2 weeks. At that time, I will d ecide whether any changes to his vasoactive regimen are warranted. Follow up labs include: RFP, Magnesium, CBC, uric acid, Urine total wwtljdz-fa-tpkyevyoo e ratio, Sheyla/Wong ratio, SFLC. I advised him to exercise regularly but safely & to try to lose weight methodically; He voiced good understanding. Discussed to avoid alcohol and caffeine. He will continue to F/U with your office regularly. He will have labs done before he comes back in [address] Langley for the opportunity to follow up with this patient and be part of the care team. Please do not hesitate to call me at any time with questions or concerns. Truly yours, [facility]ef[facility] Plan of Treatment + +--------+ + + | Name | Priori | Associated Diagnoses | Order Schedule | | | ty | | | + +--------+ + + | Renal function panel | Routin | CKD (chronic | Expected: | | | e | kidney disease) | 02/03/2019, Expires: | | | | stage 3, GFR 30-59 | 05/05/2019 | | | | ml/min Essential | | | | | hypertension, benign | | | | | Proteinuria, | | | | | unspecified type | | + +--------+ + + | CBC W/Auto Diff (Reflex to | Routin | CKD (chronic | Expected: | | Manual) | e | kidney disease) | 02/03/2019, Expires: | | | | stage 3, GFR 30-59 | 05/05/2019 | | | | ml/min Essential | | | | | hypertension, benign | | | | | Proteinuria, | | | | | unspecified type | | + +--------+ + + | Magnesium | Routin | CKD (chronic | Expected: | | | e | kidney disease) | 02/03/2019, Expires: | | | | stage 3, GFR 30-59 | 05/05/2019 | | | | ml/min Essential | | | | | hypertension, benign | | | | | Proteinuria, | | | | | unspecified type | | + +--------+ + + | Uric acid | Routin | CKD (chronic | Expected: | | | e | kidney disease) | 02/03/2019, Expires: | | | | stage 3, GFR 30-59 | 05/05/2019 | | | | ml/min Essential | | | | | hypertension, benign | | | | | Proteinuria, | | | | | unspecified type | | + +--------+ + + | Protein / creatinine ratio, urine | Routin | CKD (chronic | Expected: | | | e | kidney disease) | 02/03/2019, Expires: | | | | stage 3, GFR 30-59 | 05/05/2019 | | | | ml/min Essential | | | | | hypertension, benign | | | | | Proteinuria, | | | | | unspecified type | | + +--------+ + + | CORINNE, PE, and FLC Serum | Routin | CKD (chronic | Expected: 08/06/2018 | | | e | kidney disease) | (Approximate), | | | | stage 3, GFR 30-59 | Expires: 05/05/2019 | | | | ml/min Essential | | | | | hypertension, benign | | | | | Proteinuria, | | | | | unspecified type | | + +--------+ + + | Immunofixation,Serum | Routin | CKD (chronic | Expected: 08/06/2018 | | | e | kidney disease) | (Approximate), | | | | stage 3, GFR 30-59 | Expires: 05/05/2019 | | | | ml/min Essential | | | | | hypertension, benign | | | | | Proteinuria, | | | | | unspecified type | | + +--------+ + + | SHEYLA/ WONG FR LT CH RAT | Routin | CKD (chronic | Expected: | | | e | kidney disease) | 08/06/2018, Expires: | | | | stage 3, GFR 30-59 | 05/05/2019 | | | | ml/min Essential | | | | | hypertension, benign | | | | | Proteinuria, | | | | | unspecified type | | + +--------+ + + as of this encounter Visit Diagnoses + + | Diagnosis | + + | CKD (chronic kidney disease) stage 3, GFR 30-59 ml/min - Primary | + + | Essential hypertension, benign | + + | Proteinuria, unspecified type | + +
--- OUTSIDE RECORDS SUMMARY | ~2018-08-27 | XMS | Clinical Summary ---
Demographics + + + | Address | [address] | | | [place] [address] | + + + | Home Phone | | + + + | Preferred Language | Unknown | + + + | Marital Status | | + + + | Presybeterian Affiliation | Unknown | + + + | Race | Unknown | + + + | Ethnic Group | Unknown | + + + Author + + + | Author | [facility] | | | and [place] | + + + | Organization | [facility] | | | and [place] | + + + | Address | Unknown | + + + | Phone | Unavailable | + + + Support + + +---------+ + | Name | Relationship | Address | Phone | + + +---------+ + | Lisa Rush ECON | Unknown | | + + +---------+ + Care Team Providers + +------+ + | Care Prototype Fabricator Name | Role | Phone | + [...] | + + + + + + Medications + + + +---------+------+------+-------+ | Medication | Sig | Dispensed | Refills | Star | End | Statu | | | | | | t | Date | s | | | | | | Date | | | + + + +---------+------+------+-------+ | allopurinol | Take 300 mg by mouth | | 0 | | | Activ | | (ZYLOPRIM) 300 mg | Daily. | | | | | e | | tablet | | | | | | | + + + +---------+------+------+-------+ | bicalutamide | Take 50 mg by mouth | | 0 | | | Activ | | (CASODEX) 50 mg | Daily. | | | | | e | | tablet | | | | | | | + + + +---------+------+------+-------+ | chlorthalidone 25 | Take 25 mg by mouth | | 0 | | | Activ | | mg tablet | Daily. | | | | | e | + + + +---------+------+------+-------+ | Cod Liver Oil CAPS | Take 1 capsule by | | 0 | | | Activ | | | mouth Daily. | | | | | e | + + + +---------+------+------+-------+ | Multiple | Take 1 tablet by | | 0 | | | Activ | | Vitamins-Minerals | mouth Daily. | | | | | e | | (MULTIVITAMIN ADULT | | | | | | | | PO) | | | | | | | + + + +---------+------+------+-------+ | dilTIAZem | Take 120 mg by mouth | | 0 | | | Activ | | (CARDIZEM SR) 120 mg | Daily. | | | | | e | | 12 hr capsule | | | | | | | + + + +---------+------+------+-------+ | magnesium, as | Take 250 mg by mouth | | 0 | | | Activ | | oxide, 250 MG tablet | Daily. 0.5 tablet | | | | | e | | | daily | | | | | | + + + +---------+------+------+-------+ | ascorbic acid | Take 500 mg by mouth | | 0 | | | Activ | | (VITAMIN C) 500 mg | as needed. | | | | | e | | tablet | | | | | | | + + + +---------+------+------+-------+ | Cholecalciferol | Take 1,000 Units by | | 0 | | | Activ | | (VITAMIN D3) 3000 | mouth Daily. | | | | | e | | units TABS | | | | | | | + + + +---------+------+------+-------+ | Zinc 25 MG TABS | Take 50 mg by mouth | | 0 | | | Activ | | | Daily. | | | | | e | + + + +---------+------+------+-------+ | hydrALAZINE | Take 25 mg by mouth | | 0 | | | Activ | | (APRESOLINE) 25 mg | 3 times daily. | | | | | e | | tablet | | | | | | | + + + +---------+------+------+-------+ | spironolactone | Take 25 mg by mouth | | 0 | | | Activ | | (ALDACTONE) 25 mg | Daily. | | | | | e | | tablet | | | | | | | + + + +---------+------+------+-------+ | fluticasone | 1 spray by Nasal | | 0 | 04/1 | | Activ | | (FLONASE) 50 | route as needed. | | | 8/20 | | e | | mcg/nasal spray | | | | 18 | | | + + + +---------+------+------+-------+ | losartan (COZAAR) | Take 50 mg by mouth | | 0 | 04/1 | | Activ | | 50 mg tablet | Daily. | | | 8/20 | | e | | | | | | 18 | | | + + + +---------+------+------+-------+ Active Problems + + + | Problem | Noted Date | + + + | Pulmonary hypertension | | + + + | Prostate cancer | | + + + | Actinic keratosis | | + + + | Anemia, normocytic normochromic | | + + + | Chronic kidney disease, stage 3 | | + + + | Essential hypertension | | + + + | Fatigue | | + + + | Gout | | + + + | Homocysteinemia | | + + + | PVC (premature ventricular contraction) | | + + + | Thrombocytopenia | | + + + | Vitamin [...] on file | | + + + + + + + | Job Start Date | Occupation | Industry | + + + + | Not on file | Not on file | Not on file | + + + + + + + + | Travel History | Travel Start | Travel End | + + + + + + | No recent travel history available. | + + Last Filed Vital Signs + [...] Last 3 Months Insurance + +--------+ +--------+ +---------+--------+ | Payer | Benefi | Subscriber | Effect | Phone | Address | Type | | | t Plan | ID | chase | | | | | | / | | Dates | | | | | | Group | | | | | | + +--------+ +--------+ +---------+--------+ | MEDICARE | MEDICA | [id number] | 11/04/19 | [phone] | | Medica | | | RE | | 01-Pre | 5 | | re | | | PART A | | sent | | | | | | AND B | | | | | | + +--------+ +--------+ +---------+--------+ | STATE FARM MEDICAL | STATE | [id number] | 11/04/19 | [phone] | | Indemn | | | FARM | 7 | 01-Pre | 2 | | ity | | | MDCR | | sent | | | | | | SUPPL | | | | | | + +--------+ +--------+ +---------+--------+ + +--------+ +--------+ + + | Guarantor Name | Accoun | Relation to | Date | Phone | Billing Address | | | t Type | Patient | of | | | | | | | | | | + +--------+ +--------+ + + | Juan C Kellogg | Person | Self | [birth year] | [address] | | | al/Fam | | 1936 | [phone] | [place], | | | [place] | | | [address] (Home) | [place] [address] | + +--------+ +--------+ + + Advance Directives Patient has advance care planning documents on file. For more information, please contact:[facility] [place] [address]
--- OUTSIDE RECORDS SUMMARY | ~2018-08-27 | XMS | Encounter Summary ---
Demographics + + + | Address | [address] | | | [place] [address] | + + + | Home Phone | | + + + | Preferred Language | Unknown | + + + | Marital Status | Single | + + + | Islam Affiliation | Unknown | + + + | Race | Unknown | + + + | Ethnic Group | Unknown | + + + Author + + + | Author | [facility] | + + + | Organization | [facility] | + + + | Address [...] Team Providers + +------+ + | Care Food Safety Coordinator Name | Role | Phone | + +------+ + | Danny Langley MD | PCP | | + +------+ + Encounter Details +--------+ + + + + | Date | Type | Department | Care Team | Description | +--------+ + + + + | 06/30/ | Orders Only | [facility] | Javad, | CKD (chronic kidney | | 2019 | | [place] [address] | disease) stage 3, | | | | [address] | | GFR 30-59 ml/min; | | | | [place] [address] | | Proteinuria, | | | | [phone] | | unspecified type; | | | [...] + + + | [facility] | [address] | [place] [address] | [phone] | | LABORATORY | Blvd. | | [...] + + + | [facility] | [address] | [place] [address] | [phone] | | LABORATORY | Blvd. | | [...] + + + | [facility] | [address] | [place] [address] | [phone] | | LABORATORY | Blvd. | | [...] + + + | [facility] | [address] | [place] [address] | [phone] | | LABORATORY | Blvd. | | [...] | + + + + + | [facility] | [address] | [place] [address] | [phone] | | LABORATORY | [address] | | | + + + + + in this encounter Visit Diagnoses + + | Diagnosis | + + | CKD (chronic kidney disease) stage 3, GFR 30-59 ml/min | + + | Proteinuria, unspecified type | + + | Essential hypertension, benign | + +"
--- OUTSIDE RECORDS SUMMARY | ~2018-08-27 | XMS | Encounter Summary ---
Demographics + + + | Address | [address] | | | [place] [address] | + + + | Home Phone | | + + + | Preferred Language | Unknown | + + + | Marital Status | Single | + + + | Druze Affiliation | Unknown | + + + | Race | Unknown | + + + | Ethnic Group | Unknown | + + + Author + + + | Author | [facility] | + + + | Organization | [facility] | + + + | Address [...] Team Providers + +------+ + | Care Commercial Project Manager Name | Role | Phone | + +------+ + | Danny Langley MD | PCP | | + +------+ + Reason for Visit + + + | Reason | Comments | + + + | Labs Only | 06/27/18 | + + + Encounter Details +--------+ + + + + | Date | Type | Department | Care Team | Description | +--------+ + + + + | 06/30/ | Documentati | [facility] | Cathleen Farnsworth Only (06/27/18) | | 2019 | on Only | [place] [address] | | | | | [address] | | | | | | [place] [address] | | | | | | [phone] | | | +--------+ + + + [...] section. | + +--------+ + + + in this encounter Results Uric acid (06/27/2018 12:15 PM) + +-------+ + + | Component | Value | Ref Range | Performed At | + +-------+ + + | URIC ACID | 4.7 | 4.4 - 7.6 | | + +-------+ + + + + | Specimen | + + | Blood | + + in this encounter Visit Diagnoses Not on filein this encounter"
--- OUTSIDE RECORDS SUMMARY | ~2018-08-27 | XMS | Encounter Summary ---
Demographics + + + | Address | [address] | | | [place] [address] | + + + | Home Phone | | + + + | Preferred Language | Unknown | + + + | Marital Status | Single | + + + | Congregation Affiliation | Unknown | + + + | Race | Unknown | + + + | Ethnic Group | Unknown | + + + Author + + + | Author | [facility] | + + + | Organization | [facility] | + + + | Address [...] Team Providers + +------+ + | Care Steak Tenderizer Machine Name | Role | Phone | + [...] ml/min | | | | [place] [address] | [place] [address] | (Primary Dx); | | | | [phone] | [phone] | Essential | | | | | [...] today, chronic ABREU. 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 Kellogg is a [...] Continue to follow up with Urology in [place]. BP Charting: he will bring me back his home BP charts in 2 weeks. At that time, I will d ecide whether any changes to his vasoactive regimen are warranted. Follow up labs include: RFP, Magnesium, CBC, uric acid, Urine total fomfljq-mr-bpvjwlpli e ratio, Sheyla/Wong ratio, SFLC. I advised [...] questions or concerns. Truly yours, Jefry [facility] Plan of Treatment + [...]
--- OUTSIDE RECORDS SUMMARY | ~2018-08-27 | XMS | Clinical Summary ---
Demographics + + + | Address | [address] | | | [place] [address] | + + + | Home Phone | | + + + | Preferred Language | Unknown | + + + | Marital Status | | + + + | Congregation Affiliation | Unknown | + + + | Race | Unknown | + + + | Ethnic Group | Unknown | + + + Author + + + | Author | [facility] | | | and [place] | + + + | Organization | [facility] | | [...] Team Providers + +------+ + | Care Press Reader Name | Role | Phone | + [...] +--------+ +---------+--------+ | MEDICARE | MEDICA | [id number] | 11/04/19 | [phone] | | Medica | | | RE | | 01-Pre | 5 | | re | | | PART A | | sent | | | | | | AND B | | | | | | + +--------+ +--------+ +---------+--------+ | STATE [employer] | STATE | [id number] | 11/04/19 | [phone] | | Indemn [...] Person | Self | [birth year] | [address] | | | al/Fam | | 1936 | [phone] | [place], | | | [place] | | | [address] (Home) | [place] [address] | + +--------+ +--------+ + + Advance Directives Patient has advance care planning documents on file. For more information, please contact:[facility] [place] [address]
--- OUTSIDE RECORDS SUMMARY | ~2018-08-27 | XMS | Encounter Summary ---
Demographics + + + | Address | [address] | | | [place] [address] | + + + | Home Phone | | + + + | Preferred Language | Unknown | + + + | Marital Status | Single | + + + | Scientologist Affiliation | Unknown | + + + | Race | Unknown | + + + | Ethnic Group | Unknown | + + + Author + + + | Author | [facility] | + + + | Organization | [facility] | + + + | Address [...] Team Providers + +------+ + | Care Escapement Matcher Name | Role | Phone | + [...] | | 2019 | on Only | [place] [address] | | | | | [address] | | | | | | [place] [address] | | | | | | [phone] | | | +--------+ + + + [...]
--- OUTSIDE RECORDS SUMMARY | ~2018-08-27 | XMS | Clinical Summary ---
Demographics + + + | Address | [address] | | | [place] [address] | + + + | Home Phone | | + + + | Preferred Language | Unknown | + + + | Marital Status | | + + + | Scientology Affiliation | Unknown | + + + | Race | Unknown | + + + | Ethnic Group | Unknown | + + + Author + + + | Author | [facility] | | | and [place] | + + + | Organization | [facility] | | | and [...] Team Providers + +------+ + | Care Biotechnician Name | Role | Phone | + [...] +--------+ +---------+--------+ | MEDICARE | MEDICA | [id number] | 11/04/19 | [phone] | | Medica | | | RE | | 01-Pre | 5 | | re | | | PART A | | sent | | | | | | AND B | | | | | | + +--------+ +--------+ +---------+--------+ | STATE [employer]ARM MEDICAL | STATE | [id number] | 11/04/19 | [phone] | | Indemn [...] Person | Self | [birth year] | [address] | | | al/Fam | | 1936 | [phone] | [place], | | | [place] | | | [address] (Home) | [place] [address] | + +--------+ +--------+ + + Advance Directives Patient has advance care planning documents on file. For more information, please contact:[facility] [place] [address]
--- OUTSIDE RECORDS SUMMARY | ~2018-08-27 | XMS | Clinical Summary ---
Demographics + + + | Address | [address] | | | [place] [address] | + + + | Home Phone | | + + + | Preferred Language | Unknown | + + + | Marital Status | Single | + + + | Presybeterian Affiliation | UNK | + + + | Race | White | + + + | Ethnic Group | Not or | + + + Author + + + | Author | [facility] | + + + | Organization | [facility] | + + + | Address | Unknown | + + + | Phone | Unavailable | + + + Support + + +---------+ + | Name | Relationship | Address | Phone | + + +---------+ + | BETTYE MONTAÑO | ECON | Unknown | | + + +---------+ + Care Team Providers + +------+ + | Care Paid Search Marketing Strategist Name | Role | Phone | + +------+ + PP | Unavailable | + +------+ + Source Comments KEKE is fully live on both [facility] Ambulatory and [facility] InPatient.[facility] Allergies Not on File [...]
--- OUTSIDE RECORDS SUMMARY | ~2018-08-27 | XMS | Encounter Summary ---
Demographics + + + | Address | [address] | | | [place] [address] | + + + | Home Phone | | + + + | Preferred Language | Unknown | + + + | Marital Status | Single | + + + | Hinduism Affiliation | Unknown | + + + | Race | Unknown | + + + | Ethnic Group | Unknown | + + + Author + + + | Author | [facility] | + + + | Organization | [facility] | + + + | Address [...] Team Providers + +------+ + | Care Jet Dyeing Machine Operator Name | Role | Phone | [...] ml/min | | | | [place] [address] | [place] [address] | (Primary Dx); | | | | [phone] | [phone] | Essential | | | | | [...] today, chronic ABREU. 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 Kellogg is a [...] Continue to follow up with Urology in [place]. BP Charting: he will bring me back his home BP charts in 2 weeks. At that time, I will d ecide whether any changes to his vasoactive regimen are warranted. Follow up labs include: RFP, Magnesium, CBC, uric acid, Urine total znlhiai-qj-fofayggss e ratio, Sheyla/Wong ratio, SFLC. I advised [...]
--- OUTSIDE RECORDS SUMMARY | ~2018-08-27 | XMS | Clinical Summary ---
Demographics + + + | Address | [address] | | | [place] [address] | + + + | Home Phone | | + + + | Preferred Language | Unknown | + + + | Marital Status | Single | + + + | Anglican Affiliation | UNK | + + + | Race | White | + + + | Ethnic Group | Not or | + + + Author + + + | Author | [facility] | + + + | Organization | [facility] | + + + | Address | Unknown | + + + | Phone | Unavailable | + + + Support + + +---------+ + | Name | Relationship | Address | Phone | + + +---------+ + | BETTYE MONTAÑO | ECON | Unknown | | + + +---------+ + Care Team Providers + +------+ + | Care Pipe Welder Name | Role | Phone | + +------+ + PP | Unavailable | + +------+ + Source Comments KEKE is fully live on both [facility] Ambulatory and [facility] InPatient.[facility] Allergies Not on File Current Medications [...]
--- OUTSIDE RECORDS SUMMARY | ~2018-08-27 | XMS | Encounter Summary ---
Demographics + + + | Address | [address] | | | [place] [address] | + + + | Home Phone | | + + + | Preferred Language | Unknown | + + + | Marital Status | Single | + + + | Anglican Affiliation | Unknown | + + + | Race | Unknown | + + + | Ethnic Group | Unknown | + + + Author + + + | Author | [facility] | + + + | Organization | [facility] | + + + | Address [...] Team Providers + +------+ + | Care Charging Board Operator Name | Role | Phone | [...] | | 2019 | on Only | [place] [address] | | | | | [address] | | | | | | [place] [address] | | | | | | [phone] | | | +--------+ + + + [...]
--- OUTSIDE RECORDS SUMMARY | ~2018-08-27 | XMS | Clinical Summary ---
Demographics + + + | Address | [address] | | | [place] [address] | + + + | Home Phone | | + + + | Preferred Language | Unknown | + + + | Marital Status | Single | + + + | Zoroastrian Affiliation | Unknown | + + + | Race | Unknown | + + + | Ethnic Group | Unknown | + + + Author + + + | Author | [facility] | + + + | Organization | [facility] | + + + | Address [...] Team Providers + +------+ + | Care Motorboat Mechanic Helper Name | Role | Phone | [...] | | 2019 | Visit | | SMALL PARTS SHAPER OPERATOR | disease) stage 3, | | | [...] + + + | [facility] | [address] | [place] [address] | [phone] | | LABORATORY | [address]vd[address] | | [...] | [address] | [place] [address] | [phone] | | LABORATORY | Blvd. | | [...] + + + | [facility] | [address] | [place] [address] | [phone] | | LABORATORY | Blvd. | | | + + + + + Magnesium (06/27/2018 12:15 PM) + +-------+ + + | Component | Value | Ref Range | Performed At | + +-------+ + + | MAGNESIUM | 1.8 | 1.7 - 2.5 mg/dL | [facility] | | | | | LABORATORY | + +-------+ + + + + | Specimen | + + | Blood | + + + + + + + | Performing | Address | City/State/Zipcode | Phone Number | | Organization | | | | + + + + + | [facility] | [address] | [place] [address] | [phone] | | LABORATORY | Blvd[address] | | [...] + + + | [facility] | [address] | [place] [address] | [phone] | | LABORATORY | [address]vd[address] | | [...] +------+-------+ + | MEDICARE | MEDICA | [id number] | | | [address] | | | RE | | | | [place] [address] | | | IP-OP | | | | | + +--------+ +------+-------+ + | COMMERCIAL OTHER | STATE | [id number] | | | | | | FARM [...] | Self | [birth year] | Home: | [address] | | | al/Fam | | 1936 | [phone] | [place], | | | [place] | | | [address] | [place] [address] | + +--------+ +--------+ + +
[~2018-08-27 12:34] MED LIST changes: +COZAAR100 MG PO; -LOSARTAN POTASS50 MG PO
--- OUTSIDE RECORDS SUMMARY | 2018-08-27 12:36 | XMS ---
PreManage Notification: VAMSI ROBBINS Security Certified Tumor Registrar Events No recent Security Events currently on file CRITERIA MET - [facility] - Has Care Guidelines CARE PROVIDERS DEE DEE LANGLEY Family [facility] 03/14/2018-Current PHONE: Unknown Dee Dee Langley Treatment Current [place] PHONE: Unknown Ayla has no Care Guidelines for this patient. Care History Medical/Surgical 03/14/2018 [facility] - W CALLED PATIENT AND DISCUSSED THE IMPORTANCE OF FOLLOW UP WITH PCP DR LANGLEY AFTER AN ED VISIT. - PATIENT STATED HE IS FEELING BETTER BUT WILL CALL AND MAKE THE FOLLOW UP APT WITH DR LANGLEY - PATIENT WAS LAST SEEN BY PCP ON 03/12/18. - CHW STATED IT IS STILL IMPORTANT FOR FOLLOW UP WITH PCP DUE TO RECENT ED VISIT. E.D. VISIT COUNT (12 MO.) 4 [facility] L[place] TOTAL 4 NOTE: Visits indicate total known visits. ED/UCC VISIT TRACKING (12 MO.) 08/27/2018 12:34 [place] TYPE: Emergency COMPLAINT: - WEAKNESS 03/13/2018 08:17 [place] TYPE: Emergency COMPLAINT: - DIZZINESS DIAGNOSES: - Personal history of pneumonia (recurrent) - Chronic sinusitis, unspecified - Essential (primary) hypertension - Other skilled nursing (current) drug therapy - Allergy status to other drugs, medicaments and biological substances status - Allergy status to other antibiotic agents status - Dizziness and giddiness 03/10/2018 08:22 [place] TYPE: Emergency COMPLAINT: - DIZZINESS DIAGNOSES: - Allergy status to other drugs, medicaments and biological substances status - Other skilled nursing (current) drug therapy - Chronic sinusitis, unspecified - Dizziness and giddiness - Essential (primary) hypertension - Bronchitis, not specified as acute or chronic 09/18/2017 19:45 [place] TYPE: Emergency COMPLAINT: - DIZZIENESS DIAGNOSES: - Allergy status to other antibiotic agents status - Dizziness and giddiness - Allergy status to other drugs, medicaments and biological substances status - Essential (primary) hypertension - Other skilled nursing (current) drug therapy INPATIENT VISIT TRACKING (12 MO.) No inpatient visits to display in this time frame [email or web address]
--- NOTE | 2018-08-27 15:50 | NUR ---
82YR OLD MAN ADMITTED FROM ER VIA STRETCHER TO ROOM 121. 4 PERSON ASSIST TO MOVE FROM STRETCHER TO BED. BECOMES SOB WITH INCREASED COUGHING WITH EXHERTION, C/O BEING VERY WEAK. DENIES NAUSEA OR PAIN. POSITIONED FOR COMFORT, HOB ELEVATED. ROOM AIR. COMPLETING 2ND LITER OF LR BOLUS NOW. PT HAS SPLINT TO L HAND TO PROTECT IV STARTED IN ER. ORDERS NOTED. DENIES NEED TO VOID. ORIENTED TO ROOM AND CALL LIGHT.
--- NOTE | 2018-08-27 16:05 | NUR ---
PT HAS WALLET AND VALUABLES THIS RN OFFERED TO LOCK ANY ITEMS IN SAFE IF PT WISHED. PT SAID, "I WOULD RATHER KEEP MY WALLET AND BELONGINGS IN HIS ROOM"
--- NOTE | 2018-08-27 17:00 | NUR ---
T 98.7, ASKING TO ORDER DINNER- TURKEY SANDWICH. STATES HE IS FEELING BETTER AFTER RECIEVING IVF.
--- NOTE | 2018-08-27 18:07 | NUR ---
T-98.3, ATE 100% OF DINNER, STATES HE JUST WANTS TO TAKE A NAP. CONT. TO HAVE OCCASIONAL LOOSE COUGH. MAINTAINS OXYGEN 98% ON RA. IVF PATENT, DENIES NEED TO VOID AT THIS TIME. CALL LIGHT IN EASY REACH.
--- NOTE | 2018-08-27 19:10 | NUR ---
SHIFT REPORT RECEIVED FROM DAYSHIFT RN AT BEDSIDE. PT AWAKE IN BED RESTING, NO DISTRESS NOTED. PT ON RA. PT DENIES NEEDS AT THIS TIME, CALL LIGHT IN REACH.
--- NOTE | 2018-08-27 19:51 | EKG ---
[facility] [address] [place] [address] Signed Normal sinus rhythm Normal ECG When compared with ECG of 13-MAR-2018 08:57, Vent. rate has increased BY 36 BPM Confirmed by FREDDY OLIVA MD ([id number]) on 08/27/2018 7:51:30 PM Electronically Signed By: FREDDY OLIVA MD 08/27/181950 PATIENT NAME: VAMSI ROBBINS Electrocardiogram DATE OF : 35 PHYSICIAN: FREDDY OLIVA MD REPORT #: [id number] REPORT IS CONFIDENTIAL AND NOT TO BE RELEASED WITHOUT AUTHORIZATION
--- NOTE | 2018-08-27 20:00 | NUR ---
VITALS DONE AND CHARTED.
--- NOTE | 2018-08-27 21:30 | NUR ---
ASSESSMENT COMPLETE. SCHEDULED MEDICATIONS GIVEN (SEE EMAR). PRN ROBITUSSIN AND TESSALON PEARLS GIVEN FOR COUGH. VSS, PT ON RA. DENIES SOB OR DYSPNEA A THIS TIME. ORAL TEMP RESULT 99.5. PT REPOSITIONED AND INSTRUSTED ON USE OF IS. IS USED BY PT. PY ALSO INSTRUCTED TO TURN IN BED, COUGH, AND DEEP BREATH WHEN AWAKE. WILL MONITOR. ROOM TEMP DECREASED WELL. PT UP 2PA TO BSC TO VOID. VOID SUCCESSFUL, PT NOW IN BED. BED ALARM ON FOR SFETY. CALL LIGHT IN REACH. IV FLUIDS INFUSING PER MD ORDERS, SITE WNL.
--- NOTE | 2018-08-27 22:50 | NUR ---
ORAL TEMP RESULT OF 100.5. DR OLIVA NOTIFIED PER MD PARAMETERS. INSTRUCTED TO GIVE PRN TYLENOL AND MONITOR. PER DR OLIVA, "LET THE TYLENOL TAKE AFFECT AND RECHECK IN A FOUR HOURS. IF STILL ABOVE PARAMTERS, LET ME KNOW". PRN TYLENOL GIVEN FOR TEMP. EXCESS SHEETS REMOVED AND PT INSTRUCTED TO USE IS. NO FURTHER NEEDS, CALL LIGHT IN REACH.
--- NOTE | 2018-08-27 22:59 | NUR ---
HELPED PT SIT ON THE SIDE OF THE BED AND USE HIS URINAL. HELPED HIM BACK INTO BED, SCD'S HOOKED BACK UP. BEDSIDE TABLE AND CALL LIGHT IN REACH.
--- NOTE | 2018-08-27 23:00 | NUR ---
BED ALARM SET.
--- NOTE | 2018-08-27 23:22 | NUR ---
HELPED PT GET CLEANED UP AFTER HE WAS INCONTINENT OF URINE. BED ALARM SET. BEDSIDE TABLE AND CALL LIGHT IN REACH.
--- NOTE | 2018-08-28 00:24 | NUR ---
PRN TESSALON PEARLS GIVEN FOR COUGH. PT DENIES PRODUCTIVE COUGH. COOL OR HOT BEVERAGES OFFERED FOR THROAT, PT KINDLY REFUSES. NO FURTHER NEEDS, CALL LIGHT IN REACH.
--- NOTE | 2018-08-28 01:00 | NUR ---
PT REQUESTING TO USE THE BATHROOM. PT 2PA TO BSC TO VOID. PT MISSED BSC AND VOIDED ON FLOOR. AREA CLEANED AND ESTEFANY CARE COMPLETED BY THIS RN AND DENSITY CONTROL PUNCHER AUGUST. PT NOW BACK IN BED 2PA AND IS RESTING. IS AGAIN USED BY PATIENT. NO FURTHER NEEDS NOTED. CALL LIGHT IN REACH.
--- NOTE | 2018-08-28 01:06 | NUR ---
WITH THE HELP OF NAYANA GRIFFITHS WE HELPED PT TO THE BSC AND BACK TO BED. SCD'S PUT BACK ON. BEDSIDE TABLE AND CALL LIGHT IN REACH. CLEANED UP THE URINE ON THE FLOOR WITH RED WIPES. PT NEEDS NOTHING MORE AT THIS TIME.
--- NOTE | 2018-08-28 01:45 | NUR ---
PRN ROBITUSSIN GIVEN FOR COUGH. PT AWAKE, INTERMITTENT COUGHING NOTED. PT DENIES COUGH IS PRODUCTIVE. ORAL TEMP RESULT OF 98.9. NO FURTHER NEEDS, CALL LIGHT IN REACH.
--- NOTE | 2018-08-28 01:50 | NUR ---
VITALS AND I&OS DONE AND CHARTED. PT NEEDS NOTHING AT THIS TIME. BEDSIDE TABLE AND CALL LIGHT IN REACH.
--- NOTE | 2018-08-28 02:41 | NUR ---
HELPED PT TO THE SIDE OF THE BED TO USE HIS URINAL. CLEANED URINE OFF THE FLOOR WITH RED WIPES. SCD'S PUT BACK ON AND BEDSIDE TABLE AND CALL LIGHT IN REACH. PT NEEDS NOTHING MORE AT THIS TIME.
--- NOTE | 2018-08-28 04:16 | NUR ---
HELPED PT STAND ON THE SIDE OF THE BED TO USE HIS URINAL. SCD'S PUT BACK ON AND BEDSIDE TABLE AND CALL LIGHT IN REACH.
--- NOTE | 2018-08-28 05:40 | NUR ---
ASSESSMENT COMPLETE. ORAL TEMP 100.2. EXCESS BLANKET REMOVED. IS USED BY PATIENT. PRN TYLENOL GIVEN. WILL MONITOR. PT UP 2PA TO BSC TO VOID. PT NOW RESTING IN BED, DENIES FURTHER NEEDS, CALL LIGHT IN REACH.
--- NOTE | 2018-08-28 05:51 | NUR ---
WITH THE HELP OF NAYANA GRIFFITHS WE HELPED PT TO THE BSC AND BACK TO BED. BEDSIDE TABLE AND CALL LIGHT IN REACH. BED ALARM SET. VITALS AND I&OS DONE AND CHARTED. INFORMED RN OF [facility].
--- NOTE | 2018-08-28 06:41 | NUR ---
PT SLEPT OFF AND ON WHEN NOT COUGHING. PT A/O, VSS. ELEVATED TEMPS, RESOLVED WITH USE OF IS, COUGHING, AND PO TYLENOL. MD AWARE. PT ON RA. PT ON REGULAR DIET, TOLERATING WELL, NO NAUSEA. PT 2PA TO BSC, IMPATIENT AT TIMES AND REQUIRES PROMPTING. IV FLUIDS INFUSING PER MD ORDERS, IV SITES WNL. ROBITUSON AND TESALON PEARLS PRN FOR COUGH. COUGH NONPRODUCTIVE. BED ALARM ON FOR SAFETY.
--- NOTE | 2018-08-28 08:07 | NUR ---
REPORT RECEIVED FROM CHARGE NURSE. DROPLET PRECAUTIONS IN PLACE. CALL LIGHT IN REACH.
--- NOTE | 2018-08-28 09:40 | NUR ---
IN TO SPEAK WITH PT, INITIAL CASE MANAGEMENT ASSESSMENT COMPLETE. PT DENIES ANY NEEDS FOR DISCHARGE.
--- NOTE | 2018-08-28 10:30 | NUR ---
SBA TO AMBULATE IN [place]. WALKED TO AND FROM NURSING STATIONS. TOLERATED WELL.
[2018-08-28] MEDS ORDERED: HYDRALAZINE HCL25 MG PO (10:47)
--- NOTE | 2018-08-28 10:49 | NUR ---
LR DECREASED TO 75ML/HR PER ORDER.
--- NOTE | 2018-08-28 11:09 | NUR ---
SBA TO BATHROOM. VOIDED 200. BACK TO CHAIR. TOLERATED WELL. CALL LIGHT IN REACH. DENEIS NEEDS.
--- NOTE | 2018-08-28 12:52 | NUR ---
I ASKED HIM THIS MORNING IF HE WOULD LIKE A SHOWER AND HE SAID NOT RIGHT NOW. SO WHEN I GO IN AND DO VITALS I WILL ASK HIM AGAIN. CHANGED HIS GOWN. PATIENT AND I WALKED 12O FEET TODAY. PATIENT IS SITTING IN HIS CHAIR SLEEPING.
[2018-08-28] MEDS ORDERED: FLONASE ALLERG9.9 ML NAS (12:56)
--- NOTE | 2018-08-28 12:57 | NUR ---
MED REC COMPLETE
--- NOTE | 2018-08-28 14:21 | NUR ---
PT OOB TO SHOWER. TEMP OF 101.3. 500MG TYLENOL ADMINISTERED. VERY UNSTEADY ON FEET. 2PA BACK TO BED AFTER LARGE LIQUID BM AND VOID. ROBITUSSIN FOR COUGH ADMINISTERED. NEW LR BAG STARTED. CALL LIGHT IN REACH. WILL CONT TO MONITOR.
--- NOTE | 2018-08-28 14:35 | NUR ---
DR. OLIVA NOTIFIED OF TEMP 101.3, PT GIVEN TYLENOL. TELEPHONE ORDER FOR 2 VIEW CHEST XRAY, BLOOD CULTURES TO BE REDRAWN, AND FOR A UA, RBOV.
--- NOTE | 2018-08-28 14:36 | NUR ---
I HELPED PATIENT TRANSFER FROM HIS CHAIR TO THE SHOWER CHAIR. AFTER SHOWER HELPED HIM PUT ON HIS GOWN AND SOCKS. NURSE WAS IN ROOM SO SHE HELPED ME TAKE HIM BACK TO THE BATHROOM AND HELPED ME WALK HIM BACK TO BED. PATIENT IS IN BED.
--- NOTE | 2018-08-28 15:13 | NUR ---
LAB IN TO DRAW BLOOD CULTURES.
--- NOTE | 2018-08-28 15:20 | NUR ---
PT OFF FLOOR TO IMAGING.
--- NOTE | 2018-08-28 15:44 | NUR ---
PT BACL TO FLOOR
--- NOTE | 2018-08-28 15:54 | NUR ---
UA SAMPLE COLLECTED AND SENT TO LAB. TEMP REASSESSED ANS WAS 100.0. DR FARRAR NOTIFIED. LR AT 75ML/HR RESTARTED. CALL LIGHT IN REACH.
--- NOTE | 2018-08-28 18:21 | NUR ---
DR FARRAR CALLED AND UPDATED ON XRAY RESULTS. NO NEW ORDERS.
--- NOTE | 2018-08-28 21:30 | NUR ---
PATIENT RESTING QUIETLY IN HIGH FOWLERS POSITION WATCHING TV..
--- NOTE | 2018-08-28 23:21 | NUR ---
HELPED PT TO THE BATHROOM AND BACK TO BED. SCD'S PLUGGED BACK IN. BED ALARM SET. BEDSIDE TABLE AND CALL LIGHT IN REACH. PT NEEDS NOTHING MORE AT THIS TIME.
--- NOTE | 2018-08-29 01:30 | NUR ---
UZAIR RESTING QUIETLY IN HIGH FOWLERS POSITION. FEELING BETTER AFTER TYLENOL, CEPACOL, AND COUGH SYRUP. EYES CLOSED, RESPIRATION EVEN, WITH OCCASIONAL COUGH.
--- NOTE | 2018-08-29 03:43 | NUR ---
BOTH PATIENT'S IV'S HAD TO BE PULLED DUE TO TENDERNESS AND SOME REDNESS WHEN FLUSHING. NEW 22G RFA IV PLACED AND IS RUNNING WELL.
--- NOTE | 2018-08-29 05:40 | NUR ---
PATIENT AWAKE ON AND OFF THROUGH THE NIGHT. BOTH IV'S WENT BAD THROUGHT THE NIGHT AND A NEW LINE HAD TO BE PUT IN FOR DR. FARRAR'S ORDRS. PATIENT WAS TO GET LEVAQUIN AND PATIENT AND INFORMED ME HE HAS HAD 2 RELATIVES WITH ACHILLES TENDON RUPTURES FROM LEVAQUIN. ROCHPHIN 2GRAMS AND ZITHROMAX 500MG QD WERE ORDERED BY DR. FARRAR ALONG WITH CEPACOL. PATIENT GETS UP TO THE BATHROOM TO VOID.
--- NOTE | 2018-08-29 07:40 | NUR ---
BEDSIDE REPORT RECIEVED FROM AMIRAH KRAUS. PT AWAKE AND DENIES ANY NEW PROBLEMS AT THIS TIME. CALL MCCULLOUGH WITHIN REACH, PT REAMINS ON PRECAUTIONS.
--- NOTE | 2018-08-29 08:00 | NUR ---
PATIENT SITTING UP IN CHAIR. PATIENT REFUSED TO TAKE A SHOWER TODAY. HANDS AND FACE CLEANED. NO OTHER NEEDS AT THIS TIME
--- NOTE | 2018-08-29 09:13 | NUR ---
PATIENT SITTING UP IN CHAIR. RN IN ROOM. VITAL SIGNS AND I&O DONE. CALL LIGHT WITHIN REACH. NO OTHER NEEDS AT THIS TIME
--- NOTE | 2018-08-29 09:16 | NUR ---
DR FARRAR WAS CALLED AND UPDATED TO THE PT'S DECLINE OF HIS LEVAUIN AND THE RIGHT AXILLARY RASH. NEW ORDERS RECIEVED, SEE EMAR. BP WAS RECHECKED AND HIS BP IS NOW 148/58 WITH A MAP OF 77. PT DENIES ANY OTHER NEW PROBLMES. HE IS SITTING UP IN HIS CHIAR WITH HIS CALL MCCULLOUGH WITHIN REACH.
--- NOTE | 2018-08-29 10:35 | NUR ---
PT RESTING IN HIS CHIAR WITH NO NEW COMPLAINTS. HE USED HIS IS WHEN ASKED AND IS ABLE TO GET TO 1999.
--- NOTE | 2018-08-29 11:22 | NUR ---
PATIENT SITTING UP IN CHAIR. RN IN ROOM. HANDS AND FACE CLEANED. PATIENT USING A CLEAN GOWN. CALL LIGHT WITHIN REACH. NO OTHER NEEDS AT THIS TIME
--- NOTE | 2018-08-29 11:53 | NUR ---
PT AMBULATED TO THE END OF THE [place] AND BACK WITH A SBA AND A GAIT BELT. PT DID STUMBLE TWICE AND IS UNSTEADY. PT TOLERATED TO WALK WELL HOWEVER. PT NOW BACK TO HIS CHAIR AND NOW SPEAKING WITH DR FARRAR. RICHARD MCCULLOUGH IS WITHIN REACH.
--- NOTE | 2018-08-29 12:03 | NUR ---
PT IS DISAPPOINTED THAT HE IS BACK HERE, HE SAYS "AGAIN". SOME SHALLOW COUGHS, UP AND AMBULATING THE HALLS WITH NAYANA EDGAR. GAVE ENCOURAGEMENT, WILL CONTINUE TO FOLLOW NEEDED
--- NOTE | 2018-08-29 12:39 | NUR ---
PT ASLEEP IN HIS CHAIR AT THIS TIME, CALL SADIA WITHIN REACH.
--- NOTE | 2018-08-29 13:46 | NUR ---
PATIENT SITTING UP IN CHAIR. VITAL SIGNS AND I&O DONE. ICE WATER GIVEN. CALL LIGHT WITHIN REACH. NO OTHER NEEDS AT THIS TIME
--- NOTE | 2018-08-29 13:52 | NUR ---
PT RESTING IN HIS CHIAR WITH NO COMPLAINT OTHER THAN A SORE THROAT WHICH HE STATES IS ACCEPTABLE. VSS AT THIS TIME. CALL MCCULLOUGH WITHIN REACH.
--- NOTE | 2018-08-29 14:45 | NUR ---
Pt working with physical therapy at this time.
--- NOTE | 2018-08-29 17:35 | NUR ---
PT HAD HIS CONTACT PRECAUTIONS REMOVED TODAY. PT AMBULATED IN THE [place] AND WAS UNSTEADY ON HIS FEET. PT/OT ORDERED. HE IS A SBA WITH THE USE OF A FWW. PT DID WELL TODAY.
--- NOTE | 2018-08-29 18:45 | NUR ---
Pt resting in his chair with no needs at this time.
--- NOTE | 2018-08-29 19:34 | NUR ---
RECIEVED BEDSIDE REPORT FROM HERVE KRAUS. PATIENT SITTING UP IN CHAIR WITH EYES CLOSED, RESPIRATORY RATE IS EVEN AND UNLABORED. CALL LIGHT WITHIN REACH. POSSESSIONS WITHIN REACH.
--- NOTE | 2018-08-29 19:54 | NUR ---
THIS RN ROUNDED ON PATIENT TO ANSWER PATIENT CALL LIGHT. THIS RN SBA PATIENT WITH FWW TO RESTROOM. PATIENT SAFELY BACK INTO BED WITH CALL LIGHT WITHIN REACH. POSSESSIONS AT BEDSIDE. BED ALARM ON FOR SAFETY. PATIENT DENIES ANYMORE NEEDS AT THIS TIME.
--- NOTE | 2018-08-29 20:30 | NUR ---
PROVIDED BEDSIDE REPORT TO AMIRAH KRAUS. PATIENT SITTING UP IN BED WITH EYES CLOSED, RESPIRATORY RATE IS EVEN AND UNLABORED. NO SIGNS OF DISTRESS. BED ALARM ON FOR SAFETY. CALL LIGHT WITHIN REACH.
--- NOTE | 2018-08-29 20:56 | NUR ---
Vital signs and I&Os were complete. Patient doesnt need anything further at this time.
--- NOTE | 2018-08-29 21:43 | NUR ---
MANAGER ADMINISTRATION ROUNDING NOTE. PT RESTING IN BED WITH PRIMARY RN AT BEDSIDE. PT DENIES NEEDS AT THIS TIME. CALL LIGHT IN REACH. ROOM IN VIEW OF RN STATION.
--- NOTE | 2018-08-29 22:26 | NUR ---
PATIENT SITTING UP IN HIS BED COUGH IS NOT REAL BAD. PATIENT HAVING NO PAIN AND RESTING WITH EYES CLOSED.
--- NOTE | 2018-08-29 23:54 | NUR ---
CALLED DR. FARRAR ABOUT PATIENT COUGHING AAND WHEEZING AND WAS GIVEN AN ORDER FOR Q4/HR ALBUTEROL TREAMENTS PRN. CALLED RT TO COME GIVE HIM A TREATMENT. RT POE WILL BE HERE SHORTLY.
--- NOTE | 2018-08-30 01:14 | NUR ---
PATIENT HAS HAD HIS NEB TREATMENT AND IS NOT QUITE WHEEZY AND SAYS HE FEELS A LITTLE BETTER.
--- NOTE | 2018-08-30 03:27 | NUR ---
PATIENT SITTING UP IN BED WATCHING TV AT THIS TIME.
--- NOTE | 2018-08-30 03:33 | NUR ---
PATIENT JUST GOT BACK FROM THE BATHROOM, AND HAD A LARGE BM AND VOIDED. 11PSBA BACK TO BED.
--- NOTE | 2018-08-30 05:30 | NUR ---
PATIENT SITTING UP WATCHING TV. RT WRIST IV HAD TO COME OUT IT WAS DUE AND SORE. NEBS WERE ORDEREDD BY . PATIENT HAS USED THE BATHROOM A GREAT DEAL THROUGH THE NIGHT.
--- NOTE | 2018-08-30 07:32 | NUR ---
BEDSIDE REPORT RECIEVED FROM AMIRAH KRAUS. PT LYING IN BED WITH NO COMPLAINTS AND HIS CALL MCCULLOUGH IS WITHIN REACH.
--- NOTE | 2018-08-30 12:08 | NUR ---
PT RESTING IN HIS CHAIR AWAITING HIS LUNCH. HE APPEARS COMFORTABLE AND DENIES ANY NEW PROBLEMS.
--- NOTE | 2018-08-30 13:07 | NUR ---
Pt was sleeping in his chiar and he awoke to voice and denies any sob or new problems.
--- NOTE | 2018-08-30 15:12 | NUR ---
patient refused his showe, but said he would shwer tomorrow
--- NOTE | 2018-08-30 15:16 | NUR ---
Pt resting in his chiar watching tv. Iv site saline locked at this time.
--- NOTE | 2018-08-30 16:24 | NUR ---
Pt continues resting in his chair with no complaints of sob at this time.
--- NOTE | 2018-08-30 17:53 | NUR ---
PT RESTING IN HIS CHIAR EATING DINNER AT THIS TIME.
--- NOTE | 2018-08-30 19:54 | NUR ---
PATIENT IS UP IN THE BEDSIDE ARM CHAIR WATCHING TV. PATIENT HAS WATER AND CALL LIGHT AT BEDSIDE. PATIENT DENIES PAIN JUST FEELING A DEPRESSED HE HAS TO BE IN THE HOSPITAL. PATIENT HAS NO OTHER NEEDS AT THIS TIME.
--- NOTE | 2018-08-30 21:37 | NUR ---
PATIENT CONTINUES TO SIT IN HIS CHAIR WATCHING TV. CALL LIGHT IN REACH.
--- NOTE | 2018-08-30 22:00 | NUR ---
V/S AND I&O TAKEN AND RECORDED. PATIENT STILL LIKES TO BE UP IN THE CHAIR.
--- NOTE | 2018-08-30 22:23 | NUR ---
OCCUPATIONAL HEALTH NURSE ROUNDING COMPLETE. PT RESTING IN CHAIR WITH EYES CLOSED. PT APPEARS TO BE SLEEPING, DOES NOT WAKE WHILE SENIOR ADMINISTRATIVE SUPPORT IN IN ROOM. CALL LIGHT IN REACH. ROOM IN VIEW OF RN STATION. WHITEBOARD UPDATED.
--- NOTE | 2018-08-31 00:18 | NUR ---
PATIENT RESTING QUIETLY IN THE BEDSIDE ARM CHAIR. RESPIRATIONS ARE EVEN AND REGULAR AT 16. PATIENT NOT COUGHING LIKE HE NORMALLY DOES WHEN IN BED. CALL LIGHT IN REACH.
--- NOTE | 2018-08-31 01:13 | NUR ---
PATIENT WAS UP TO THE BATHROOM AND NOW IS IN BED FOR THE NIGHT FROM THE CHAIR. CALL LIGHT IN REACH.
--- NOTE | 2018-08-31 02:30 | NUR ---
PATIENT IS RESTING IN BED IN HIGH FOWLERS POSITION. EYES CLOSED WITH REGULAR AND EVEN RESPIRATIONS. CALL LIGHT IN REACH.
--- NOTE | 2018-08-31 04:28 | NUR ---
PATIENT SITTING UP IN BED WATCHING TV AT THIS TIME.
--- NOTE | 2018-08-31 05:23 | NUR ---
PATIENT SLEPT HALF THE NIGHT IN HER CHAIR AND THE REST OF THE NIGHT IN THE BED. COUGHED A LOT LESS TONIGHT THAN THE LAST 2 NIGHTS. SITING UP IN BED WATCHING TV AT THIS TIME. HAS BEEN WALKING INTO THE BATHROOM WITH FWW AND 1PSBA. CALL LIGHT IN REACH.
--- NOTE | 2018-08-31 07:19 | NUR ---
0705: Bedside report recieved from Dusty KRAUS. Pt resting in bed with no complaints, call olson within reach.
--- NOTE | 2018-08-31 08:09 | NUR ---
PT RESTING IN HIS CHIAR WITH HIS CALL MCCULLOUGH WITHIN REACH AND NO NEW COMPLAINTS AT THIS TIME.
--- NOTE | 2018-08-31 11:08 | NUR ---
PT WALKED IN THE [place] WITH A SBA AND HIS WALKER AND DID TWO FULL LAPS WITHOUT STUMBLING.
--- NOTE | 2018-08-31 13:39 | NUR ---
PT RESTING IN HIS CHAIR WITH NO COMPLAINTS.
--- NOTE | 2018-08-31 16:23 | NUR ---
I ASKED HIM SEVERAL TIMES TODAY IF HE WOULD LIKE TO TAKE A SHOWER AND HE SAID NOT TODAY. CHANGED HIS BED LINENS. HE WALKED TWO LAPS AROUND MED SURG. WITH NURSE. SITTING UP IN HIS CHAIR. WILL GO IN AND CHANGED HIS GOWN. WASHED HIS FACE.
--- NOTE | 2018-08-31 16:41 | NUR ---
PT RESTING IN HIS CHAIR WITH NO NEW COMPLAINTS. CALL MCCULLOUGH WITHIN REACH.
--- NOTE | 2018-08-31 17:08 | NUR ---
Pt resting in bed with no complaints. Scd'd and bed alarm are on, call light is within reach.
--- NOTE | 2018-08-31 19:20 | NUR ---
BEDSIDE REPORT RECEIVED FROM OFFGOING RN. PT SITTING UP IN CHAIR, DENIES NEEDS AT THIS TIME. CALL LIGHT WITHIN REACH.
--- NOTE | 2018-08-31 22:24 | NUR ---
PT ASSESSMENT COMPLETE. PT SITTING UP IN CHAIR. PT DENIES PAIN, NAUSEA, OR SOB. LUNG SOUNDS WITH EXPIRATORY WHEEZE AND DIMINISHED THROUGHOUT. WHEEZE DOES NOT CLEAR WITH COUGH. PT AMBULATES FROM HIS CHAIR TO CLOSET INDEPENDENTLY. TOLERATED WELL. PT DENIES FURTHER NEEDS AT THIS TIME. CALL LIGHT WITHIN REACH.
--- NOTE | 2018-08-31 22:47 | NUR ---
V/S AND I&O TAKEN AND RECORDED BY EVANGELISTA LEDEZMA.
--- NOTE | 2018-09-01 00:55 | NUR ---
PT RESTING IN BED WITH EYES CLOSED. RESPIRATIONS EVEN AND UNLABORED. PT APPEARS TO BE SLEEPING. CALL LIGHT IN REACH.
--- NOTE | 2018-09-01 03:47 | NUR ---
PT ASSESSMENT COMPLETE. PT SITTING IN BED AWAKE, WATCHING TV. STATES THAT HE CANNOT SLEEP DUE TO COUGH. CEPACOL LOZENGE PROVIDED. LUNG SOUNDS CLEAR, DIMINISHED IN BILATERAL BASES. PT REPORTS SLIGHT SOB WITH COUGHING. PT DENIES PAIN OR NAUSEA. PT DENIES FURTHER NEEDS AT THIS TIME. CALL LIGHT IN REACH.
--- NOTE | 2018-09-01 04:57 | NUR ---
ROUNDED ON PATIENT TO ANSWER PATIENT CALL LIGHT. PATIENT REPORTS HAVING BLOODY NOSE, TISSUES PROVIDED. CALL LIGHT WITHIN REACH. PATIENT DENIES ANYMORE NEEDS AT THIS TIME.
--- NOTE | 2018-09-01 05:19 | NUR ---
PT RESTED OFF AND ON THIS SHIFT. CONTINUES TO HAVE DRY COUGH. CEPACOL X 1 THIS SHIFT. PT AMBULATING AD SHALOM IN ROOM, TOLERATING WELL. UO QS. BM X 1 THIS SHIFT. IV SL. POSS HOME TODAY.
--- NOTE | 2018-09-01 07:29 | NUR ---
RECIEVED BEDSIDE REPORT FROM NAYANA BRODY. PT AWAKE AND ALERT IN CHAIR. PT VOIDING WELL. NO NEEDS AT THIS TIME.
--- NOTE | 2018-09-01 07:58 | NUR ---
PATIENT UP TO CHAIR, SBA. PATIENT REFUSED BED CHANGED, BED STRAIGHTENED UP. CALL LIGHT IN REACH. NO FURTHER NEEDS AT THIS TIME.
--- NOTE | 2018-09-01 09:00 | NUR ---
SPOKE WITH PATIENT IN ROOM. DISCUSSED POSSIBLE FOLLOW UP WITH HOME HEALTH, CHW, PCP AFTER DISCHARGE. PATIENT NOT SURE HE WANTS PEOPLE COMING TO HIS HOME. DISCUSSED THAT IF HE IS FEELING WEAK AND UNABLE TO GET OUT EASILY THAT HE CAN CONTINUE PT AT HOME AND HAVE NURSING CHECK WITH HIM ON HIS MEDICATIONS. PATIENT STATES HE NEEDS TO GO TO TOWN TO PAY BILLS AND GO TO THE STORE. DISCUSSED PERHAPS HIS FAMILY COULD HELP HIM WITH THIS UNTIL HE IS FEELING BETTER AND STRONGER. DISCUSSED WORRY ABOUT FALLS AND DOING TOO MUCH AND HAVING A SET BACK IN HEALTH. PATIENT AGREES TO HAVE CHW CALL AND HOME HEALTH TO CALL AND SET A TIME TO VISIT. DISCUSSED DIAGNOSIS, STATES UNDERSTANDING REGARDING THIS. PATIENT STATES HIS SISTER IS COMING TO TAKE HIM HOME, AGREED I COULD COME TALK WITH HER LATER BEFORE DISCHARGE HE STATES SHE WILL BE AVAILABLE TO HELP IF NE NEEDS IT. PATIENT UP IN ROOM WITHOUT DIFFICULTY, ALTHOUGH COUGHING ON OCCASION. PATIENT ABLE TO GET HIS BAGS FROM CLOSET. DISCUSSING HIS PURCHACES AT [employer] AND HOW HE LIKES TO COOK. PATIENT STATES HE CAN DRIVE HIMSELF TO FOLLOW UP DR MOORE. WILL RETURN WHEN FAMILY HERE PATIENT WISHES.
[2018-09-01] MEDS ORDERED: AMOX TR-K CLV1 EAC1 PO (09:04)
--- NOTE | 2018-09-01 10:41 | NUR ---
PATIENT SITTING IN CHAIR. FRESH WATER GIVEN. PATIENT REFUSED SHOWER. CALL LIGHT IN REACH. NO FURTHER NEEDS AT THIS TIME.
--- NOTE | 2018-09-01 10:42 | NUR ---
PT TOLERATED PHYSICAL THERAPY WELL. DISCHARGE ORDER IN COMPUTER. WAITING FOR FAMILY TO BE ABLE TO PICK HIM UP ABOUT NOON.
--- NOTE | 2018-09-01 11:12 | NUR ---
PT UP AMBULATING IN [place] WITH P.T. HE STOPPED TO VISIT-SOMEWHAT WINDED AND STILL EXPRESSED DISAPPOINTMENT WITH HAVING TO BE HERE. PT LIKES TO TALK AND SEEMS TO ENJOY COMPANY. GAVE ENCOURAGEMENT AND BLESSING. WILL FOLLOW NEEDED
--- NOTE | 2018-09-01 12:35 | NUR ---
SPOKE WITH SISTER RUBEN WHO IS HERE, AND MATY NEWMAN BY PHONE. DISCUSSED DISCHARGE PLAN OF HOME HEALTH, CHW, PCP FOLLOW UP. AFTER LENGTHY DISCUSSION PATIENT HAS INDICATED TO THEM HE IS NOT WANTING "PEOPLE COMING TO THE HOME FOR THERAPY". THEY ARE STATING THAT HIS SISTER WILL TAKE HIM HOME AND WILL BE CHECKING ON HIM MULTIPLE TIMES A DAY, THEY WILL MAKE SURE HE HAS GROCERIES. THEY SUGGEST THAT HE DO OUTPATIENT THERAPY AT [facility]. DISCUSSED THAT HE ENJOYS GETTING OUT, AND HE WILL NOT STAY AT HOME TO MEET HOMEBOUND CRITERIA. AGREED THAT THIS CAN BE ARRANGED. DISCUSSED THAT CHW WILL FOLLOW UP BY PHONE IN CASE HE HAS ISSUES AND THAT IF THE OUTPATIENT THERAPY DOESN'T WORK, IT CAN BE CHANGED TO HOME HEALTH THROUGH PCP OFFICE. THEY ARE AGREEABLE TO THIS. QUESTIONS ANSWERED. SISTER IS STAYING FOR DISCHARGE INSTRUCTIONS AND WILL BE AVAILABLE TO GET MEDS NEEDED. UPDATED STAFF INCLUDING DR FARRAR.
--- NOTE | 2018-09-01 13:23 | NUR ---
PT IS SITTING IN THE CHAIR, WAITING FOR DC. HE WAVED ME IN, AND WE HAD AN ENGAGING CONVERSATION. PT FEELS RATHER [place]GOTTON, LIKE NO ONE REALLY CARES FOR HIM. WE DEBRIEFED A MOMENT, SHARED SCRIPTURE AND HIS SISTER APPEARED TO TAKE HIM HOME. PERFECT TIME TO REINFORCE THAT GOD PROVIDES FOR US HE SAID HE WOULD. HE RELUCTANTLY AGREED. PT LET ME PRAY FOR HIM, WILL FOLLOW NEEDED
--- NOTE | 2018-09-01 13:30 | NUR ---
PT MET DISCHARGE CRITERIA. ALL PERSONAL BELONGINGS RETURNED TO PT. NO ITEMS PLACED IN SAFE PER PT. PT EATING AND DRINKING WELL. IV REMOVED. SKIN INTACT.
--- NOTE | 2018-09-01 16:41 | NUR ---
FAXED TO [facility] OUTPATIENT THERAPY DEPT [phone] SENT: FACE SHEET/ED REPORT/H&P/DISCHARGE PACKET/PT,OT EVAL & LAST PT NOTE. FAX CONFIRMATION RECEIVED 09/01/18 446PM.
== END 2018-09-01 13:31 | disposition home health service (06) | DRG 195 ==
LOC: ED 12:34 → MS 12:35
PROVIDERS: ADMIT Internal Medicine
DX: J18.9 Pneumonia, unspecified organism (principal); I10 Essential (primary) hypertension; D69.6 Thrombocytopenia, unspecified; E79.0 Hyperuricemia without signs of inflammatory arthritis and tophaceous disease; Z85.46 Personal history of malignant neoplasm of prostate; Z79.51 Long term (current) use of inhaled steroids; Z79.899 Other long term (current) drug therapy; Z88.1 Allergy status to other antibiotic agents; Z88.8 Allergy status to other drugs, medicaments and biological substances
CPT/HCPCS: 36415; 71045; 71046; 80053; 81001; 83605; 84484; 85025; 85651; 87502; 93005; 93010; 94640; 96360; 97110; 97116; 97161; 97165; 99285-25; J0456; J0696; J1956; J7030; J7120

== ENCOUNTER 2018-12-25 02:31 | Emergency (ER) | payer MEDICARE, OTHER ==
[~2018-12-25] VITALS: Ht 180.3 cm; Wt 127.5 kg
[~2018-12-25 02:31] MED LIST changes: +AMOX TR-K CLV1 EAC1 PO
--- OUTSIDE RECORDS SUMMARY | 2018-12-25 02:34 | XMS ---
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 Care History Medical/Surgical 03/14/2018 [facility] - [facility] CALLED PATIENT AND DISCUSSED THE [...] VISIT. E.D. VISIT COUNT (12 MO.) [address] [facility] TOTAL 4 NOTE: Visits indicate total known visits. ED/UCC VISIT TRACKING (12 MO.) 12/25/2018 02:32 [facility] [place] TYPE: Emergency COMPLAINT: - RAPID HEART RATE 08/27/2018 12:34 [facility] [place] TYPE: Emergency COMPLAINT: - WEAKNESS 03/13/2018 08:17 [facility] [place] TYPE: Emergency COMPLAINT: - DIZZINESS DIAGNOSES: - Personal history of pneumonia (recurrent) - Chronic sinusitis, unspecified - Essential (primary) hypertension - Other intermediate project manager (current) drug therapy - Allergy status to other drugs, medicaments and biological substances status - Allergy status to other antibiotic agents status - Dizziness and giddiness 03/10/2018 08:22 [facility] [place] TYPE: Emergency COMPLAINT: - DIZZINESS DIAGNOSES: - Allergy status to other drugs, medicaments and biological substances status - Other residential (current) drug therapy - Chronic sinusitis, unspecified - Dizziness and giddiness - Essential (primary) hypertension - Bronchitis, not specified as acute or chronic INPATIENT VISIT TRACKING (12 MO.) 08/29/2018 09:17 [facility] [place] TYPE: Medical Surgical COMPLAINT: - COMMUNITY ACQUIRED PNEUMONIA DIAGNOSES: - intermediate project manager (current) use of inhaled steroids - Other residential (current) drug therapy - Thrombocytopenia, unspecified - Essential (primary) hypertension - Allergy status to other drugs, medicaments and biological substances status - Other residential (current) drug therapy - Allergy status to other antibiotic agents status - Cough - Pneumonia, unspecified organism - Allergy status to other antibiotic agents status - Hyperuricemia without signs of inflammatory arthritis and tophaceous disease - Essential (primary) hypertension - Personal history of malignant neoplasm of prostate - Pneumonia, unspecified organism - Thrombocytopenia, unspecified - Allergy status to other drugs, medicaments and biological substances status - Hyperuricemia without signs of inflammatory arthritis and tophaceous disease - Personal history of malignant neoplasm of prostate - 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
[2018-12-25] MEDS ORDERED: XTANDI40 MG PO (02:56)
--- NOTE | 2018-12-25 15:15 | EKG ---
[facility] [address] [facility] [place] [address] Signed Normal sinus rhythm Prolonged QT Abnormal ECG When compared with ECG of 27-AUG-2018 12:58, Nonspecific T wave abnormality no longer evident in Lateral leads QT has lengthened Confirmed by SHAMEKA CARLOS DO ([id number]) on 12/25/2018 3:15:03 PM Electronically Signed By: SHAMEKA CARLOS DO 12/25/18 1515 PATIENT NAME: VAMSI ROBBINS Electrocardiogram DATE OF : 35 PHYSICIAN: SHAMEKA CARLOS DO REPORT #: [id number] REPORT IS CONFIDENTIAL AND NOT TO BE RELEASED WITHOUT AUTHORIZATION
== END 2018-12-25 07:01 | disposition home or self-care (01) ==
LOC: ED 02:31
DX: T50.995A Adverse effect of other drugs, medicaments and biological substances, initial encounter (principal); I10 Essential (primary) hypertension; Z87.442 Personal history of urinary calculi; Z85.820 Personal history of malignant melanoma of skin; Z85.46 Personal history of malignant neoplasm of prostate; Z85.830 Personal history of malignant neoplasm of bone; Z87.01 Personal history of pneumonia (recurrent); Z88.1 Allergy status to other antibiotic agents; Z88.8 Allergy status to other drugs, medicaments and biological substances; Z79.899 Other long term (current) drug therapy
CPT/HCPCS: 71045; 80053; 81001; 83735; 84484; 85025; 93005; 93010; 96361; 96374; 99285-25; J2060; J7030

== ENCOUNTER 2019-06-12 12:08 | Emergency (ER) | payer MEDICARE, OTHER ==
[~2019-06-12 12:08] MED LIST changes: +XTANDI40 MG PO
--- OUTSIDE RECORDS SUMMARY | 2019-06-12 12:12 | XMS ---
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 Care History Medical/Surgical 03/14/2018 [facility] - CHW CALLED PATIENT AND DISCUSSED THE IMPORTANCE OF [...] ED VISIT. E.D. VISIT COUNT (12 MO.) 3 [facility] Lai TOTAL 3 NOTE: Visits indicate total known visits. ED/UCC VISIT TRACKING (12 MO.) 06/12/2019 12:09 [facility] [place] TYPE: Emergency COMPLAINT: - HEADACHE, BACK PAIN 12/25/2018 02:32 [facility] [place] TYPE: Emergency COMPLAINT: - RAPID HEART RATE DIAGNOSES: - Personal history of malignant neoplasm of prostate - Allergy status to other antibiotic agents status - Personal history of malignant neoplasm of bone - Personal history of pneumonia (recurrent) - Other group home (current) drug therapy - Personal history of malignant melanoma of skin - Essential (primary) hypertension - Tachycardia, unspecified - Adverse effect of drug/meds/biol subst, init - Personal history of urinary calculi - Allergy status to oth drug/meds/biol subst status 08/27/2018 12:34 [facility] [place] TYPE: Emergency COMPLAINT: - WEAKNESS INPATIENT VISIT TRACKING (12 MO.) 08/29/2018 09:17 [facility] [place] TYPE: Medical Surgical COMPLAINT: - COMMUNITY ACQUIRED PNEUMONIA DIAGNOSES: - [facility] (current) use of inhaled steroids - 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 - Thrombocytopenia, unspecified - Essential (primary) hypertension - Allergy status to oth drug/meds/biol subst status - Other group home (current) drug therapy - Allergy status to other antibiotic agents status - Cough - Pneumonia, unspecified organism - Allergy status to other antibiotic agents status - Hyperuricemia w/o signs of inflam arthrit and tophaceous dis - Essential (primary) hypertension - Personal history of malignant neoplasm of prostate - Pneumonia, unspecified organism - Thrombocytopenia, unspecified - Allergy status to oth drug/meds/biol subst status - Hyperuricemia w/o signs of inflam arthrit and tophaceous dis - Personal history of malignant neoplasm of prostate - 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
== END 2019-06-12 14:15 | disposition home or self-care (01) ==
LOC: ED 12:08
DX: R51 Headache (principal); I10 Essential (primary) hypertension; Z87.01 Personal history of pneumonia (recurrent); Z85.46 Personal history of malignant neoplasm of prostate; Z88.1 Allergy status to other antibiotic agents; Z88.8 Allergy status to other drugs, medicaments and biological substances; Z79.899 Other long term (current) drug therapy
CPT/HCPCS: 70450; 99284-25

== ENCOUNTER 2020-04-20 17:25 | Emergency (ER) | payer MEDICARE, OTHER ==
[~2020-04-20] VITALS: Ht 180.3 cm; Wt 127.5 kg
--- NOTE | 2020-04-22 | EKG ---
[facility] [address] [facility] [place] [address] Signed Sinus rhythm with occasional premature ventricular complexes Nonspecific T wave abnormality Abnormal ECG When compared with ECG of 25-DEC-2018 02:36, premature ventricular complexes are now present Nonspecific T wave abnormality now evident in Lateral leads QT has shortened Confirmed by ABDIRIZAK FARRAR MD ([id number]) on 04/21/2020 11:59:47 PM Electronically Signed By: ABDIRIZAK FARRAR MD 04/22/20 0000 PATIENT NAME: ROSENDOVAMSI Electrocardiogram DATE OF : 35 PHYSICIAN: ABDIRIZAK FARRAR MD REPORT #: [id number] REPORT IS CONFIDENTIAL AND NOT TO BE RELEASED WITHOUT AUTHORIZATION
== END 2020-04-20 20:45 | disposition home or self-care (01) ==
LOC: ED 17:25
DX: R42 Dizziness and giddiness (principal); I10 Essential (primary) hypertension; Z88.1 Allergy status to other antibiotic agents; Z88.8 Allergy status to other drugs, medicaments and biological substances; Z79.899 Other long term (current) drug therapy
CPT/HCPCS: 71045; 80053; 81001; 83735; 84484; 85025; 93005; 93010; 96374; 96375; 99285-25; J1885; J2405; J7030

== ENCOUNTER 2020-07-26 23:05 | Emergency (ER) | payer MEDICARE, OTHER ==
[~2020-07-26] VITALS: Ht 180.3 cm; Wt 125.2 kg
== END 2020-07-27 03:06 | disposition home or self-care (01) ==
LOC: ED 23:05
DX: R42 Dizziness and giddiness (principal); I10 Essential (primary) hypertension; Z85.46 Personal history of malignant neoplasm of prostate; I27.20 Pulmonary hypertension, unspecified; Z88.1 Allergy status to other antibiotic agents; Z88.8 Allergy status to other drugs, medicaments and biological substances; Z79.899 Other long term (current) drug therapy
CPT/HCPCS: 36415; 80053; 85025; 99284; J7030

== ENCOUNTER 2020-12-26 09:54 | Emergency (ER) | payer MEDICARE, OTHER ==
[~2020-12-26] VITALS: Ht 180.3 cm; Wt 125.2 kg
[2020-12-26] MEDS ORDERED: ABIRATERONE AC250 MG PO (10:18)
[2020-12-26] MEDS ORDERED: PREDNISONE5 MG PO (10:18)
== END 2020-12-26 13:32 | disposition home or self-care (01) ==
LOC: ED 09:54
DX: R51.9 Headache, unspecified (principal); I10 Essential (primary) hypertension; Z85.46 Personal history of malignant neoplasm of prostate; Z20.822 Contact with and (suspected) exposure to COVID-19; Z88.1 Allergy status to other antibiotic agents; Z88.8 Allergy status to other drugs, medicaments and biological substances; Z79.899 Other long term (current) drug therapy; M10.9 Gout, unspecified; Z79.52 Long term (current) use of systemic steroids
CPT/HCPCS: 70450; 80053; 81001; 85025; 99284-25; C9803; U0003

== ENCOUNTER 2021-02-28 09:17 | Emergency (ER) | payer MEDICARE, OTHER ==
[~2021-02-28] VITALS: Ht 180.3 cm; Wt 125.2 kg
[~2021-02-28 09:17] MED LIST changes: +ABIRATERONE AC250 MG PO; +PREDNISONE5 MG PO; -VITAMIN D31000 UNI1 PO; +VITAMIN D325 MCG PO
--- NOTE | 2021-02-28 15:13 | EKG ---
[facility] [address] [facility] [place], [place] [address] Signed Sinus rhythm with 1st degree AV block Nonspecific ST and T wave abnormality Abnormal ECG Confirmed by SHAMEKA CARLOS DO ([id number]) on 02/28/2021 3:13:39 PM Electronically Signed By: SHAMEKA CARLOS DO 02/28/21 1513 PATIENT NAME: ROSENDOVAMSIBG MARTINEZERT Electrocardiogram DATE OF : 35 PHYSICIAN: SHAMEKA CARLOS DO REPORT #: [id number] REPORT IS CONFIDENTIAL AND NOT TO BE RELEASED WITHOUT AUTHORIZATION
[2021-03-01] MEDS ORDERED: HYDRALAZINE HCL50 MG PO (08:09)
[2021-03-01] MEDS ORDERED: CALTRATE+D3 PL1 EACH PO (13:32)
== END 2021-02-28 16:05 | disposition home or self-care (01) ==
LOC: ED 09:17
DX: U07.1 COVID-19 (principal); I10 Essential (primary) hypertension; M10.9 Gout, unspecified; Z85.46 Personal history of malignant neoplasm of prostate; Z88.8 Allergy status to other drugs, medicaments and biological substances; Z88.1 Allergy status to other antibiotic agents; Z79.899 Other long term (current) drug therapy; Z79.52 Long term (current) use of systemic steroids
CPT/HCPCS: 71045; 71260; 80053; 81001; 84484; 85025; 85379; 93005; 93010; 99285-25; C9803; M0247; Q9967; U0003

== ENCOUNTER 2021-02-28 21:25 | Observation (INO) | payer MEDICARE, OTHER ==
[~2021-02-28] VITALS: Ht 180.3 cm; Wt 109.6 kg
--- OUTSIDE RECORDS SUMMARY | 2021-02-28 21:32 | XMS ---
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 03/14/2018-Current PHONE: [phone] Ayla has no Care Guidelines for this patient. Care History Medical/Surgical 03/14/2018 [facility] - CHW CALLED PATIENT AND DISCUSSED THE IMPORTANCE OF FOLLOW UP WITH PCP DR FLETCHER AFTER AN ED VISIT. - PATIENT STATED HE IS FEELING BETTER BUT WILL CALL AND MAKE THE FOLLOW UP APT WITH DR FLETCHER - PATIENT WAS LAST SEEN BY PCP ON 03/12/18. - CHW STATED IT IS STILL IMPORTANT FOR FOLLOW UP WITH PCP DUE TO RECENT ED VISIT. E.D. VISIT COUNT (12 MO.) 5 [facility] TOTAL 5 NOTE: Visits indicate total known visits. 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 - Gout, unspecified - Adverse effect of other drugs, medicaments and biological substances, initial encounter - Personal history of malignant neoplasm of prostate - Other intermediate project manager (current) drug therapy - Headache, unspecified 07/26/2020 23:05 ELTON [facility]ba[facility] [place] TYPE: Emergency COMPLAINT: - DIZZINESS DIAGNOSES: - Allergy status to other drugs, medicaments and biological substances - Allergy status to other antibiotic agents - Dizziness and giddiness - Other intermediate project manager (current) drug therapy - Personal history of malignant neoplasm of prostate - Pulmonary hypertension, unspecified - Essential (primary) hypertension 04/20/2020 17:27 ELTON Sarabia [place] TYPE: Emergency COMPLAINT: - WEAKNESS DIAGNOSES: - Allergy status to other antibiotic agents - Other intermediate project manager (current) drug therapy - Allergy status to other drugs, medicaments and biological substances - Allergy status to other antibiotic agents - Allergy status to other drugs, medicaments and biological substances - Essential (primary) hypertension - Dizziness and giddiness - Weakness INPATIENT VISIT TRACKING (12 MO.) No inpatient visits to display in this time frame [email or web address]
--- NOTE | 2021-03-01 00:04 | NUR ---
PATIENT ARRIVED TO THE FLOOR VIA STRETCHER. PATIENT WAS ABLE TO SCOOT FROM STRETCHER TO HOSPITAL BED WITH NO ASSISTANCE. PATIENT DENIES ANY SOB. PATIENT IS ON RA. PATIENTS VITALS TAKEN AND RECORDED. PATIENTS IV IS SL AND FLUSHES WELL. PATIENT DENIES ANY PAIN. PATIENT PLACED ON TELE #4 TO MONITOR OXYGEN. PATIENT HAS NOTED DRIED BLOOD ON RIGHT CHEEK. PATIENT FELL EARLIER AND HIT HIS HEAD. PATIENT DENIES ANY PAIN ON RIGHT CHEEK. PATIENT HAS NOTED RASH ON RIGHT SIDE TO BACK. PATIENT STATED "I STOPPED TAKING ALL MY MEDS ON SATURDAY, I JUST DIDNT FEEL GOOD" PATIENT LIVES ALONE. THIS RN PLACED CASE MANAGEMENT CONSULT. PATIENT MAY NEEDS ADDITIONAL HELP AT HOME. PATIENR ORIENTED TO ROOM ALL QUESTIONS ANSWERED. ICE WATER PROVIDED. PATIENT DENIES ANY NEEDS OR QUESTIONS ABOUT PLAN OF CARE. BONSAI TENDER REMAINS IN ROOM TO COMPLETE ADMISSION.
--- NOTE | 2021-03-01 00:54 | NUR ---
PATIENT IS RESTING IN BED WITH EYES CLSOED, RR 18. CALL LIGHT IN REACH. CPOX TELE IS 97% ON RA. CALL LIGHT AND BELONGINGS ARE WITHIN REACH.
--- NOTE | 2021-03-01 02:44 | NUR ---
PATIENT IS RESTING IN BED WITH EYES CLOSED, CPOX READINGS ARE WNL. PATIENT REMAINS ON RA. CALL LIGHT IN REACH.
--- NOTE | 2021-03-01 04:01 | NUR ---
PATIENTS ICE WATER REFILLED. PATIENT ASSISTED TO STAND AT THE BEDSIDE AND USE URINAL. PATIENT TOLERATED ACTIVITY WELL. PATIENT DENIED BEING LIGHT HEADED OR DIZZY WHEN STANDING. PATIENT IS BACK IN BED RESTING. PATIENT REMAINS ON RA. CALL LIGHT IN REACH.
--- NOTE | 2021-03-01 05:34 | NUR ---
Patient vitals, I&Os are compplete. Call light is in reach.
--- NOTE | 2021-03-01 05:58 | NUR ---
PATIENT IS SITTING ON THE EDGE OF THE BED. PATIENT PROVIDED WITH FRESH ICE WATER. PATIENT DENIES ANY SOB AND REMAINS ON RA. PATIENT DENIES ANY NEEDS. CALL LIGHT IN REACH.
--- NOTE | 2021-03-01 07:20 | NUR ---
Report received from Mirella KRAUS. Pt resting in bed with eyes closed, breathing even and unlabored. On room air, SPO2 97%. No needs identified at this time, call light in reach. Will continue plan of care.
--- NOTE | 2021-03-01 07:42 | NUR ---
Pt 85 yo [place]. Lives in [address] [place] home and uses Pt the main floor only. 81 yo sister calls 2x per day to check on him, but cannot visit due to his +covidPt has metastatic prostate ca to the bone. Pt states he has been hoarding food and his kitchen and porch are filled with nonperishable items. 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 He sleeps on a sofa. Pt states he was froy- ing medication for his cancer, but stopped 2 weeks ago. He declines assist to find a cg to assist him. Does not want anyone in his home. He denies financial issues. He does agree to CHW calling to check on him and assisting with resources. Pt states he is depressed and cries freq- uently. He declines antidepressants. He drove himself to the hospital yesterday, but fell after going home. His second trip was by ambulance. Discussed [facility] as they transport +covid pts. He does agree to a ride as he has no one to pick him up. He denies needs and refuses assist. I will send a referral to Maricarmen Sánchez CHW. Pt plans on dc to home when discharged by hospitalist.
--- NOTE | 2021-03-01 07:46 | NUR ---
Called [facility] and updated. He was scheduled yesterday to see Dr. Richardson, but was cancelled due to +Covid. Updated pt states heis depressed and crying frequently. Has stopped his "cancer Pills" and does not care if he dies sooner.
--- NOTE | 2021-03-01 08:05 | NUR ---
Spoke with pt and . Pt is 23 and denies any needs. does request to change surgeon as they are friends of Dr. June. Dr Perez updated and in to speak with family as Dr. June is out of town. Pt and plan on dc to home when cleared medically following surgery. Denie financial issues or any other concerns.
--- NOTE | 2021-03-01 08:05 | NUR ---
Referal sent to [facility].
[2021-03-01] MEDS ORDERED: HYDRALAZINE HCL50 MG PO (08:09)
--- NOTE | 2021-03-01 09:00 | NUR ---
Assessment complete, scheduled medications administered. Pt states feeling physically well, independent in room to bathroom, on room air. SPO2 98%. Pt talkative and reminisces on past.
--- NOTE | 2021-03-01 11:48 | NUR ---
CM NOTE TO CHART ON INCORRECT PATIENT REGARDING PROCEDURE WITH DR FLORES. NOTE MOVED TO CORRECT CHART
--- NOTE | 2021-03-01 12:00 | NUR ---
Pt's sister called, updated with patient consent
--- NOTE | 2021-03-01 13:05 | NUR ---
IVF infusing WNL. Scheduled medications administered. Pt resting in bed, drowsy and states would like to take a nap. Encouraged to rest. On room air, spo2 97%. Call light in reach.
[2021-03-01] MEDS ORDERED: CALTRATE+D3 PL1 EACH PO (13:32)
--- NOTE | 2021-03-01 13:32 | NUR ---
MED REC COMPLETE
--- NOTE | 2021-03-01 14:24 | NUR ---
DUE TO PRECAUTIONS, NAYANA GALARZA RECOMMENDED I CALL PT. HAD GOOD CONVERSATION WITH PT. HE DOES DEAL WITH DEPRESSION, SAID HE WAS TAKING CHEMO PILLS AND STOPPED BECAUSE HE DIDNOT LIKE THE WAY THE MEDS MADE HIM FEEL. 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 PT THANKED ME AND WILL FOLLOW NEEDED
--- NOTE | 2021-03-01 15:15 | NUR ---
Noted that patient desaturates when coughing, checked on patient who states feeling well, spo2 returns to 98% at rest. IVF infusing WNL. Dinner ordered, no further needs at this time.
--- NOTE | 2021-03-01 17:25 | NUR ---
Pt resting in bed, on room air, SPO2 97%. IVF infusing WNL.
--- NOTE | 2021-03-01 19:09 | NUR ---
PT VERY CHATTY. ICE WATER REFRESHED. CALL LIGHT WITHIN REACH. NO FURTHER NEEDS AT THIS TIME.
--- NOTE | 2021-03-01 19:20 | NUR ---
SHIFT REPORT RECEIVED FROM LUCY KRAUS. PT RESTIONG IN BED. SPO2 94% ON RA. IV FLUIDS INFUSING PER ORDER. NO OTHER NEEDS CALL LIGHT IN REACH.
--- NOTE | 2021-03-01 21:30 | NUR ---
ASSESSMENT, VS AND I&O COMPLETED. GCS 15, A&O X4. LUNGS CLEAR IN UPPER LOBES AND DIM IN LOWER LOBES. HEART HAS MURMUR. ABD SOFT, NONTENDER, BOWEL TONES ACTIVE. OLD, RED SHINGLES NOTED ON UPPER RIGHT BACK AND UPPER RIGHT CHEST. TRACE BLE EDEMA. SCATTERED BRUISING NOTED. IV WNL, CDI, FLUSHED WELL. SPO2 98% ON RA. IV FLUIDS INFUSING PER ORDER. CALL LIGHT IN REACH.
--- NOTE | 2021-03-01 22:40 | NUR ---
TELE BATTERY REPLACED. SPO2 97% ON RA. IV FLUIDS INFUSING PER ORDER. CALL LIGHT IN REACH.
--- NOTE | 2021-03-02 00:12 | NUR ---
PT RESTING IN BED, WATCHING TV. SPO2 96% ON RA. CALL LIGHT IN REACH.
--- NOTE | 2021-03-02 02:00 | NUR ---
PT RESTING IN BED, SPO2 96% ON RA. RR EVEN, UNLABORED. CALL LIGHT IN REACH.
--- NOTE | 2021-03-02 03:45 | NUR ---
PT AWAKE IN ROOM. ASSESSMENT COMPLETED. PT IS EMOTIONAL, TALKING OABOUT PAST FAMILY DEATHS. LUNGS CLEAR IN UPPER LOBES, DIM IN LOWER LOBES. HEART TONES HAVE MURMUR. BLE TRACE EDEMA UNCHANGED. IV FLUIDS INFUSING PER ORDER. PT DENIES SOB AND IS AMBULATORY IN ROOM. NO OTHER NEEDS AT THIS TIME. CALL LIGHT IN REACH.
--- NOTE | 2021-03-02 05:14 | NUR ---
PT SPO2 IN THE UPPER 70s, PT REPOSITIONED ON RIGHT SIDE. PT BEGINS TO COUGH AND SPITS OUT A BRIGHT RED SPUTUM, COLLECTED INTO SPECIMEN CUP. SPO2 SLOWLY RETURNS TO 85% ON 40/100 VAPOTHERM WITH 15L NRB. PT HAS BEEN DIFFICULT TO MAINTAIN @ 85% THIS SHIFT WITH MANY EPISODES OF PT DROPPING INTO THE 70s. PT DOES NOT DO WELL WITH POSITIONING, WILL NOT PRONE. PT ALSO REMOVES NRB AND IS UNAWARE WHEN THE VAPOTHERM IS NOT IN HIS NOSE. PT HAD ABOUT 1 HOUR OF TIME THAT HIS SPO2 STAYED NEAR 89% THIS MORNING WHILE ON LEFT SIDE WITH VAPOTHERM 40/100 AND 15L NRB. PT HAS SLEPT VERY LITTLE AND BECOMES AGGITATED AT TIMES CONCERNING REQUESTS TO KEEP O2 ON AND POSITIONING. NOTIFED BY [employer] MESSAGING OF SPUTUM.
--- NOTE | 2021-03-02 05:20 | NUR ---
PT RESTING IN BED . SPO2 97%. CALL LIGHT IN REACH.
--- NOTE | 2021-03-02 06:18 | NUR ---
PT RESTING IN BED, SPO2 96% ON RA. CALL LIGHT IN REACH.
--- NOTE | 2021-03-02 07:30 | NUR ---
REPORT RECEIVED FROM NAYANA HAMEED. PT SITITNG UP ON EDGE OF BED, INDEPENDANTLY. PT DENIES DIZZINESS AT THIS TIME. PT DENIES PAIN AND NAUSEA. REMAINS ON ROOM AIR WITH OXYGEN SATURATIONS OF 100%. PT ASSISTED WITH ORDERING BREAKFAST. NO ADDITIONAL REQUESTS OR COMPLAINTS AT THIS TIME. CALL LIGHT WITHIN REACH. BED RAILS UP.
--- NOTE | 2021-03-02 08:28 | NUR ---
MORNING ASSESSMENT AND MEDICATION DUE. PT SITTING UP ON EDGE OF BED TALKING TO FRIEND, LEISA, ON PHONE. LEISA UPDATED BY THIS RN PER PT REQUEST, LEISA STATES HER QUESTIONS HAVE BEEN ANSWERED. PT DENIES PAIN AND NAUSEA. PT REPORTS HIS STRENGTH HAS IMPROVED AND IS "PRETTY CLOSE" BACK TO NORMAL. LUNG SOUNDS CLEAR. PT COUGHING UP OCCATIONAL WHITE SPUTUME. OXGYEN SATURATIONS REMAINS ABOVE 94% ON ROOM AIR, CURRENTLY 98%. PT DENIE TROUBLE WITH DIARRHEA OR ANY LOSS OF SENSE OF TASTE OR SMELL. STAND BY ASSIST UP TO CHAIR. PT STEADY ON FEET AND DIZZINESS THIS MORNING. SHINGLES TO RIGHT BACK SHOULDER REMAIN STABLE, NO NEW LESIONS NOTED. PT DENIES ADDITIONAL REQUESTS OR COMPLAINTS. CALL LIGHT WITHIN REACH.
--- NOTE | 2021-03-02 10:00 | NUR ---
THIS RN TO ROOM TO CHECK ON PT. PT REMAINS UP TO CHAIR. WATCHING TV. PT DENIES PAIN AND NAUSEA. OXYGEN SATURATION REMAINS ABOVE 94% ON ROOM AIR, CURRENTLY 96%. REPORT GIVEN TO NAYANA CASTILLO WHO WILL ASSUME CARE OF PT WITH ASSISTANCE FROM THIS RN. NO ADDITIONAL REQUESTS OR COMPLAINTS. ICE WATER REFILLED. CALL LIGHT WITHIN REACH.
--- NOTE | 2021-03-02 10:32 | NUR ---
THIS NURSE IS ASSUMING CARE OF PT. RECIEVED REPORT FROM NAYANA FERRARI.
--- NOTE | 2021-03-02 10:57 | NUR ---
IN TO SEE PT. PT SITTING UP IN CHAIR WACHING TV. DENIES PAINAND DISCOMFORT. MD CONSULTED REGARDING FURTHER IV FLUID NEEDS AT THIS TIME. MD ORDER TO SALINE LOCK IV. IV SALINE LOCKED. NO S/SX OF PHELIBITIS OR INFILTRATION. O2 96 ON RA. NO OTHER COMPLAINTS OR REQUESTS. CALL IGHT IN REACH.
--- NOTE | 2021-03-02 11:20 | NUR ---
Spoke with Alfred, he continues to plan on dc to home. He does not feel he needs any assistance in his home. We discussed placement to a SNF for PT and pt states he does not feel it is needed. Pt. plans on dc to home, denies needs.
--- NOTE | 2021-03-02 11:30 | NUR ---
BEDSIDE OFFICER STATES PT IS BEING RELEASED FROM CUSTODY. CORRECTIONAL RESTRAINTS REMOVED BY OFFICER. PT REPORTS HE WOULD LIKE TO CONTINUE TO STAY AT THE HOSPITAL TO GET BETTER. STAND BY ASSIST UP TO VOID IN URINAL. PT BACK TO PRONE POSITION PER HIS OWN REQUEST. OXYGEN SATURATIONS REMAIN ABOVE 90% ON VAPOTHERM SETTINGS OF 20LPM AND 60% FIO2. CALL LIGTH WITHIN REACH. BED RAILS UP.
--- NOTE | 2021-03-02 12:01 | NUR ---
THIS RN TO ROOM TO CHECK ON PT. PT UP TO CHAIR, DENIES REQUESTS OR COMPLAINTS STATING "I'M JUST BOARD." OXGYEN SATURATIONS REMAIN 95% ON ROOM AIR. NO ADDITIONAL REQUESTS OR COMPLAINTS. CALL TARA STROUD.
--- NOTE | 2021-03-02 12:40 | NUR ---
Spoke with Dr. Strange. He does plan on dc of this pt today to home. Called and scheduled [facility] for pt as they are the only transport to transport covid pts. They are aware he lives 16 miles out of town. Transport scheduled for 3 pm. Photoengraving Etcher notified.
--- NOTE | 2021-03-02 13:00 | NUR ---
CONNECTED WITH PT BY RM PHONE. PT SEEMS STRONGER, VOICE MUCH CLEARER TODAY. PT STATED HE THINKS HE WILL DC TODAY. MENTIONED THAT WHEN HE DIES, HE WANTS HIS NEPHEW TO HAVE WHAT HE HAS COLLECTED OVER THE YEARS. PT SAID HIS SISTER KNOWS HIS DESIRE. GAVE ENCOURAGEMENT, LUNCH BROUGHT IN, GAVE BLESSING, WILL FOLLOW.
[2021-03-02] MEDS ORDERED: PREDNISONE5 MG PO ×2 (13:22→13:25)
--- NOTE | 2021-03-02 13:45 | NUR ---
PT READY FOR DISCHARGE. OXGYEN SATURATIONS REMAIN ABOVE 94% ON ROOM AIR. PT UP TO GET DRESSED, NO ASSISTANCE NEEDED. PT DENIES ADDITIONAL REQUESTS OR COMPLAINTS. AWAITING TRANSPORTATION, EXPECTED TO ARRIVE AT 1500. CALL LIGHT PolarIN REACH. PT REMAINS UP TO CHAIR, WATCHING TV.
--- NOTE | 2021-03-02 14:31 | NUR ---
PT READY FOR DISCHARGE. PT UP IN ROOM INDEPENDANTLY, STEADY ON FEET, PT DENIES DIZZINESS OR LIGHTHEADEDNESS. PT DENIES PAIN AND NAUSEA. VITAL SIGNS STABLE. DISCHARGE INSTRUCTIONS REVIEWED WITH PT. PT VERBALIZES UNDERSTANDING OF INSTRUCTIONS, FOLLOW UP, AND MEDICATIONS AND STATES HIS QUESTIONS HAVE BEEN ANSWERED. IV DC'D PER PROTOCOL, ISATU AND DIOGENES APPLIED. PT AWAITING RIDE TO ARRIVE AT 1500. ROLL FORM OPERATOR UPDATED AND WILL TAKE PT OUT WHEN RIDE ARRIVES. NO ADDITIONAL REQUESTS OR CONCERNS.
== END 2021-03-02 15:03 | disposition home or self-care (01) ==
LOC: ED 21:25 → MS 21:27
PROVIDERS: ADMIT Student in an Organized Health Care Education/Training Program; ATTEND Student in an Organized Health Care Education/Training Program
DX: U07.1 COVID-19 (principal); I10 Essential (primary) hypertension; E27.3 Drug-induced adrenocortical insufficiency; C61 Malignant neoplasm of prostate; M10.9 Gout, unspecified; I27.20 Pulmonary hypertension, unspecified; Z23 Encounter for immunization; Z87.01 Personal history of pneumonia (recurrent); Z88.1 Allergy status to other antibiotic agents; Z79.899 Other long term (current) drug therapy; Z79.52 Long term (current) use of systemic steroids
CPT/HCPCS: 70450; 80048; 80053; 80500; 83735; 85025; 90471; 90714; 96372; 96374; 97110; 97116; 97162; 97165; 99285-25; G0378; J1650; J2930; J7121; J7512

== ENCOUNTER 2021-04-14 09:57 | Emergency (ER) | payer MEDICARE, OTHER ==
[~2021-04-14] VITALS: Ht 180.3 cm; Wt 109.4 kg
[~2021-04-14 09:57] MED LIST changes: +ACETAMINOPHEN-1 EAC1 PO; +CALTRATE+D3 PL1 EACH PO; +HYDRALAZINE HCL50 MG PO
--- OUTSIDE RECORDS SUMMARY | 2021-04-14 10:00 | XMS ---
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 Gabriella VISIT COUNT (12 MO.) [address] [place] [address] TOTAL 7 NOTE: Visits indicate total known visits. ED/UCC VISIT TRACKING (12 MO.) 04/14/2021 09:58 ELTON [facility]ia [place] TYPE: Emergency COMPLAINT: - HEADACHE, WOBBLY 04/07/2021 09:10 ELTON [facility] [place] TYPE: Emergency COMPLAINT: - HEADACHE, DIZZINESS DIAGNOSES: - ferry terminal agent (current) use of systemic steroids - Essential (primary) hypertension - Frequency of micturition - Allergy status to other drugs, medicaments and biological substances - Other machine long goods helper (current) drug therapy - Allergy status to other antibiotic agents - Major depressive disorder, single episode, unspecified - Weakness - Gout, unspecified - Retention of urine, unspecified - Tension-type headache, unspecified, not intractable 02/28/2021 21:26 ELTON [facility] [place] TYPE: Emergency COMPLAINT: - DIFFICULTY BREATHING 02/28/2021 09:18 ELTON [facility] [place] TYPE: Emergency COMPLAINT: - COUGH, SORE LUNGS DIAGNOSES: - Allergy status to other drugs, medicaments and biological substances - Personal history of malignant neoplasm of prostate - Gout, unspecified - alf (current) use of systemic steroids - Essential (primary) hypertension - Allergy status to other antibiotic agents - Other halfway (current) drug therapy - COUGH, UNSPECIFIED - COVID-19 12/26/2020 09:54 ELTON Sarabia [place] TYPE: Emergency COMPLAINT: - HEADACHE, HIGH B/P DIAGNOSES: - Essential (primary) hypertension - Allergy status to other antibiotic agents - Allergy status to other drugs, medicaments and biological substances - ferry terminal agent (current) use of systemic steroids - Gout, unspecified - Adverse effect of other drugs, medicaments and biological substances, initial encounter - Personal history of malignant neoplasm of prostate - Other halfway (current) drug therapy - Headache, unspecified 07/26/2020 23:05 ELTON [facility]ab[facility] [place] TYPE: Emergency COMPLAINT: - DIZZINESS DIAGNOSES: - Allergy status to other drugs, medicaments and biological substances - Allergy status to other antibiotic agents - Dizziness and giddiness - Other machine long goods helper (current) drug therapy - Personal history of malignant neoplasm of prostate - Pulmonary hypertension, unspecified - Essential (primary) hypertension 04/20/2020 17:27 ELTON [facility] [place] TYPE: Emergency COMPLAINT: - WEAKNESS DIAGNOSES: - Allergy status to other antibiotic agents - Other machine long goods helper (current) drug therapy - Allergy status to other drugs, medicaments and biological substances - Allergy status to other antibiotic agents - Allergy status to other drugs, medicaments and biological substances - Essential (primary) hypertension - Dizziness and giddiness - Weakness INPATIENT VISIT TRACKING (12 MO.) 02/28/2021 21:27 ELTON [facility] [place] TYPE: Observation COMPLAINT: - COVID +, PROFOUND WEAKNESS DIAGNOSES: - Personal history of pneumonia (recurrent) - Abrasion of other part of head, initial encounter - Weakness - ferry terminal agent (current) use of systemic steroids - Pulmonary hypertension, unspecified - COVID-19 - Other halfway (current) drug therapy - Essential (primary) hypertension - Malignant neoplasm of prostate - Encounter for immunization - Drug-induced adrenocortical insufficiency - Allergy status to other antibiotic agents - Gout, unspecified [email or web address]
--- NOTE | 2021-04-15 20:38 | EKG ---
[facility] [address] [facility] [place] [address] Signed Sinus bradycardia with sinus arrhythmia Incomplete right bundle branch block T wave abnormality, consider lateral ischemia Abnormal ECG When compared with ECG of 07-APR-2021 11:44, Non-specific change in ST segment in Anterior leads Nonspecific T wave abnormality now evident in Inferior leads Confirmed by SHAMEKA CARLOS DO ([id number]) on 04/15/2021 8:37:49 PM Electronically Signed By: SHAMEKA CARLOS DO 04/15/212037 PATIENT NAME: VAMSI ROBBINS Electrocardiogram DATE OF : 35 PHYSICIAN: SHAMEKA CARLOS DO REPORT #: [id number] REPORT IS CONFIDENTIAL AND NOT TO BE RELEASED WITHOUT AUTHORIZATION
== END 2021-04-14 14:33 | disposition home or self-care (01) ==
LOC: ED 09:57
DX: R42 Dizziness and giddiness (principal); I10 Essential (primary) hypertension; M10.9 Gout, unspecified; Z88.1 Allergy status to other antibiotic agents; Z88.8 Allergy status to other drugs, medicaments and biological substances; Z79.899 Other long term (current) drug therapy
CPT/HCPCS: 80053; 82375; 84484; 85025; 93005; 93010; 96372; 99285-25; J1885

== ENCOUNTER 2021-04-15 10:10 | Emergency (ER) | payer MEDICARE, OTHER ==
[~2021-04-15] VITALS: Ht 180.3 cm; Wt 109.4 kg
--- OUTSIDE RECORDS SUMMARY | 2021-04-15 10:12 | XMS ---
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 Gabriella VISIT COUNT (12 MO.) [address] [place] [address] TOTAL 8 NOTE: Visits indicate total known visits. ED/UCC VISIT TRACKING (12 MO.) 04/15/2021 10:11 ELTON [facility]abia [place] TYPE: Emergency COMPLAINT: - HEADACHE 04/14/2021 09:58 ELTON Sarabia [place] TYPE: Emergency COMPLAINT: - HEADACHE, WOBBLY 04/07/2021 09:10 ELTON [facility]abia [place] TYPE: Emergency COMPLAINT: - HEADACHE, DIZZINESS DIAGNOSES: - residential (current) use of systemic steroids - Essential (primary) hypertension - Frequency of micturition - Allergy status to other drugs, medicaments and biological substances - Other workcell operator (current) drug therapy - Allergy status to [...] neoplasm of prostate - Gout, unspecified - residential (current) use of systemic steroids - Essential (primary) hypertension - Allergy status to other antibiotic agents - Other workcell operator (current) drug therapy - COUGH, UNSPECIFIED - COVID-19 12/26/2020 09:54 ELTON Sarabia [place] TYPE: Emergency COMPLAINT: - HEADACHE, HIGH B/P DIAGNOSES: - Essential (primary) hypertension - Allergy status to other antibiotic agents - Allergy status to other drugs, medicaments and biological substances - timekeeper supervisor (current) use of systemic steroids - Gout, unspecified - Adverse effect of other drugs, medicaments and biological substances, initial encounter - Personal history of malignant neoplasm of prostate - Other workcell operator (current) drug therapy - Headache, unspecified 07/26/2020 23:05 ELTON Sarabia [place] TYPE: Emergency COMPLAINT: - DIZZINESS DIAGNOSES: - Allergy status to other drugs, medicaments and biological substances - Allergy status to other antibiotic agents - Dizziness and giddiness - Other long-term (current) drug therapy - Personal history of malignant neoplasm of prostate - Pulmonary hypertension, unspecified - Essential (primary) hypertension 04/20/2020 17:27 ELTON Sarabia [place] TYPE: Emergency COMPLAINT: - WEAKNESS DIAGNOSES: - Allergy status to other antibiotic agents - Other long-term (current) drug therapy - Allergy status to [...] of head, initial encounter - Weakness - residential (current) use of systemic steroids - Pulmonary hypertension, unspecified - COVID-19 - Other workcell operator (current) drug therapy - Essential (primary) hypertension - Malignant neoplasm of prostate - Encounter for immunization - Drug-induced adrenocortical insufficiency - Allergy status to other antibiotic agents - Gout, unspecified [email or web address]
--- NOTE | 2021-04-15 20:46 | EKG ---
[facility] [address] [facility] [place] [address] Signed Normal sinus rhythm Left axis deviation Nonspecific ST abnormality Abnormal ECG When compared with ECG of 14-APR-2021 12:43, (Unconfirmed) Vent. rate has increased BY 40 BPM Nonspecific T wave abnormality no longer evident in Inferior leads T wave inversion no longer evident in Lateral leads Confirmed by SHAMEKA CARLOS DO ([id number]) on 04/15/2021 8:46:00 PM Electronically Signed By: SHAMEKA CARLOS DO 04/15/212045 PATIENT NAME: VAMSI ROBBINS LISA Electrocardiogram DATE OF : 35 PHYSICIAN: SHAMEKA CARLOS DO REPORT #: [id number] REPORT IS CONFIDENTIAL AND NOT TO BE RELEASED WITHOUT AUTHORIZATION
== END 2021-04-15 12:41 | disposition home or self-care (01) ==
LOC: ED 10:10
DX: R42 Dizziness and giddiness (principal); I10 Essential (primary) hypertension; M10.9 Gout, unspecified; Z88.1 Allergy status to other antibiotic agents; Z88.8 Allergy status to other drugs, medicaments and biological substances; Z79.899 Other long term (current) drug therapy; Z79.52 Long term (current) use of systemic steroids
CPT/HCPCS: 93005; 93010; 99284-25

== ENCOUNTER 2021-04-16 22:21 | Emergency (ER) | payer MEDICARE, OTHER ==
[~2021-04-16] VITALS: Ht 180.3 cm; Wt 109.4 kg
--- OUTSIDE RECORDS SUMMARY | 2021-04-17 12:29 | XMS ---
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 Gabriella VISIT COUNT (12 MO.) [address] [place] [address] TOTAL 9 NOTE: Visits indicate total known visits. ED/UCC VISIT TRACKING (12 MO.) 04/16/2021 22:21 [facility] [place] TYPE: Emergency COMPLAINT: - WEAKNESS 04/15/2021 10:11 [facility] [place] TYPE: Emergency COMPLAINT: - HEADACHE 04/14/2021 09:58 [facility] [place] TYPE: Emergency COMPLAINT: - HEADACHE, WOBBLY 04/07/2021 09:10 [facility] [place] TYPE: Emergency COMPLAINT: - HEADACHE, DIZZINESS DIAGNOSES: - USP (current) use of systemic steroids - Essential (primary) hypertension - Frequency of micturition - Allergy status to other drugs, medicaments and biological substances - Other jail (current) drug therapy - Allergy status to [...] neoplasm of prostate - Gout, unspecified - terminal manager (current) use of systemic steroids - Essential (primary) hypertension - Allergy status to other antibiotic agents - Other jail (current) drug therapy - COUGH, UNSPECIFIED - COVID-19 12/26/2020 09:54 [facility] [place] TYPE: Emergency COMPLAINT: - HEADACHE, HIGH B/P DIAGNOSES: - Essential (primary) hypertension - Allergy status to other antibiotic agents - Allergy status to other drugs, medicaments and biological substances - terminal manager (current) use of systemic steroids - Gout, unspecified - Adverse effect of other drugs, medicaments and biological substances, initial encounter - Personal history of malignant neoplasm of prostate - Other jail (current) drug therapy - Headache, unspecified 07/26/2020 23:05 [facility] [place] TYPE: Emergency COMPLAINT: - DIZZINESS DIAGNOSES: - Allergy status to other drugs, medicaments and biological substances - Allergy status to other antibiotic agents - Dizziness and giddiness - Other tank terminal gauger (current) drug therapy - Personal history of malignant neoplasm of prostate - Pulmonary hypertension, unspecified - Essential (primary) hypertension 04/20/2020 17:27 [facility] [place] TYPE: Emergency COMPLAINT: - WEAKNESS DIAGNOSES: - Allergy status to other antibiotic agents - Other tank terminal gauger (current) drug therapy - Allergy status to other drugs, medicaments and biological substances - Allergy status to other antibiotic agents - Allergy status to other drugs, medicaments and biological substances - Essential (primary) hypertension - Dizziness and giddiness - Weakness INPATIENT VISIT TRACKING (12 MO.) 02/28/2021 21:[address] [facility] [place] TYPE: Observation COMPLAINT: - COVID +, PROFOUND WEAKNESS DIAGNOSES: - Personal history of pneumonia (recurrent) - Abrasion of other part of head, initial encounter - Weakness - terminal manager (current) use of systemic steroids - Pulmonary hypertension, unspecified - COVID-19 - Other jail (current) drug therapy - Essential (primary) hypertension - Malignant neoplasm of prostate - Encounter for immunization - Drug-induced adrenocortical insufficiency - Allergy status to other antibiotic agents - Gout, unspecified [email or web address]
== END 2021-04-17 14:47 | disposition home or self-care (01) ==
LOC: ED 22:21
DX: R53.1 Weakness (principal); R42 Dizziness and giddiness; I10 Essential (primary) hypertension; M10.9 Gout, unspecified; Z88.8 Allergy status to other drugs, medicaments and biological substances; Z88.1 Allergy status to other antibiotic agents; Z79.899 Other long term (current) drug therapy; Z79.52 Long term (current) use of systemic steroids
CPT/HCPCS: 81001; 97162; 99285